=== PATIENT | male | born 1960 | race Caucasian/White ===

== ENCOUNTER 2018-03-12 19:53 | Inpatient (IN) | payer MEDICAID, OTHER ==
[~2018-03-12] VITALS: Ht 170.2 cm; Wt 66.0 kg
[~2018-03-12 19:53] MED LIST: DOCU100T PO; DOXY100C PO; LITH450CRT PO; MULT-248 PO; MUPI15CR TP; OMEP20 PO; RISP2 PO
[2018-03-12] MEDS ORDERED: ZOLPIDEM TARTRATE 10 MG TABLET PO PRN (20:15)
[2018-03-12] MEDS ORDERED: HALOPERIDOL 5 MG TABLET PO PRN (20:15)
[2018-03-12 20:32] VITALS: BP 137/87
[2018-03-12] MEDS ORDERED: -PHARMACY VACCINE NOTE- MISC ONE (21:00)
[2018-03-12] MEDS ORDERED: NICOTINE 14 MG/24 HOUR PATCH TD PRN (21:00)
[2018-03-12] MEDS ORDERED: ACETAMINOPHEN 325 MG TABLET PO PRN (21:00)
[2018-03-12] MEDS ORDERED: ALBUTEROL SULFATE HFA 90 MCG/PUFF 8 GM INHALER IH PRN (21:00)
[2018-03-12] MEDS ORDERED: MAGNESIUM HYDROXIDE SUSPENSION 30 ML UDCUP PO PRN (21:00)
[2018-03-12] MEDS ORDERED: ONDANSETRON HCL 4 MG TABLET PO PRN (21:00)
[2018-03-12] MEDS ORDERED: LOPERAMIDE HCL 2 MG CAPSULE PO PRN (21:00)
[2018-03-12] MEDS ORDERED: PETROLATUM,WHITE 71 GM JELLY TP PRN (21:00)
[2018-03-12] MEDS ORDERED: GuaiFENesin/D-METHORPHAN [SUGAR-FREE] 200-20MG/10 ML SYRUP UDCUP PO PRN (21:00)
[2018-03-12] MEDS ORDERED: DOCUSATE SODIUM 100 MG CAPSULE PO PRN (21:00)
[2018-03-12] MEDS ORDERED: IBUPROFEN 400 MG TABLET PO PRN (21:00)
[2018-03-12] MEDS ORDERED: MAG HYDROX/AL HYDROX/SIMETH ES 30 ML SUSPENSION UDCUP PO PRN (21:00)
[2018-03-12] MEDS ORDERED: CloNIDine HCL 0.1 MG TABLET PO PRN (21:00)
[2018-03-13 06:36] VITALS: BP_SYST 122; BP_SYST 124; BP_DIAS 79
[2018-03-13 08:17] VITALS: BP 114/62
[2018-03-13 08:29] LABS: BASOPHILS % (AUTO) 0.5 % (0.0-2.0); EOSINOPHILS % (AUTO) 2.3 % (1.0-6.0); HEMATOCRIT 37.3 % (41-53); HEMOGLOBIN 12.8 g/dL (13.5-17.5); LYMPHOCYTES # (AUTO) 1.5 K/uL (1.0-4.8); LYMPHOCYTES % (AUTO) 20.2 % (22.0-44.0); MEAN CORPUSCULAR HEMOGLOBIN 30.4 pg (26.0-34.0); MEAN CORPUSCULAR HGB CONC 34.3 G/dL (31.0-37.0); MEAN CORPUSCULAR VOLUME 89 fL (80-100); MONOCYTES % (AUTO) 13.8 % (2.0-9.0); NEUTROPHILS # (AUTO) 4.6 K/uL (1.8-7.7); NEUTROPHILS % (AUTO) 63.2 % (40.0-70.0); PLATELET COUNT (AUTO) 204 K/uL (150-450); RED BLOOD CELL COUNT(AUTO) 4.21 MIL/uL (4.50-5.90); RED CELL DISTRIBUTION WIDTH 14.1 % (11.5-14.5)
[2018-03-13 08:36] LABS: HEMOGLOBIN A1C 5.7 % (4.5-6.2)
[2018-03-13 08:54] LABS: ALANINE AMINOTRANSFERASE 21 U/L (12-78); ALBUMIN 3.1 g/dL (3.4-5.0); ALKALINE PHOSPHATASE 87 U/L (46-116); ANION GAP 5 mmol/L (8-16); ASPARTATE AMINOTRANSFERASE 23 U/L (15-37); BILIRUBIN,TOTAL 0.3 mg/dL (0.1-1.0); CALCIUM, TOTAL 8.1 mg/dL (8.8-10.5); CARBON DIOXIDE 27 mmol/L (22-29); CHLORIDE 105 mmol/L (98-107); CHOLESTEROL 120 mg/dL (131-200); CREATININE 0.77 mg/dL (0.60-1.30); FREE T4 (FREE THYROXINE) 1.05 ng/dL (0.76-1.46); GLOMERULAR FILTR. RATE CALC > 60 mL/min (>60); GLUCOSE,RANDOM 98 mg/dL (70-110); HDL CHOLESTEROL 60 mg/dL (40-60); LDL CHOL (CALC.) 50 mg/dL (0-130); POTASSIUM 3.9 mmol/L (3.5-5.1); SODIUM SERUM 137 mmol/L (136-145); THYROID STIMULATING HORMONE 1.01 uIU/mL (0.36-3.74); TOTAL PROTEIN, SERUM 6.3 g/dL (6.4-8.2); TRIGLYCERIDES 49 mg/dL (15-150); UREA NITROGEN, BLOOD 13 mg/dL (7-18)
[2018-03-13] MEDS: LORazepam 2 MG TABLET PO PRN ×2 (10:05→17:02)
[2018-03-13] MEDS: RisperiDONE 2 MG TABLET PO SCH ×2 (10:05→17:02)
[2018-03-14 02:52] VITALS: BP 111/66
[2018-03-14] MEDS: RisperiDONE 2 MG TABLET PO SCH ×2 (08:56→16:55)
[2018-03-14] MEDS: LORazepam 2 MG TABLET PO PRN (08:56)
[2018-03-14 16:00] VITALS: BP 118/64
[2018-03-15] MEDS ORDERED: LITHIUM CARBONATE 300 MG TABLET PO SCH (09:00)
[2018-03-15] MEDS: RisperiDONE 2 MG TABLET PO SCH (09:16)
== END 2018-03-15 13:15 | disposition home or self-care (01) | DRG 751 ==
LOC: B3A 20:12
PROVIDERS: ADMIT Psychiatry & Neurology Child & Adolescent Psychiatry; ATTEND Psychiatry & Neurology Child & Adolescent Psychiatry
DX: F23 Brief psychotic disorder (principal); D64.9 Anemia, unspecified; F41.9 Anxiety disorder, unspecified; F15.90 Other stimulant use, unspecified, uncomplicated; F17.210 Nicotine dependence, cigarettes, uncomplicated; J44.9 Chronic obstructive pulmonary disease, unspecified; K21.9 Gastro-esophageal reflux disease without esophagitis; K59.00 Constipation, unspecified; Z28.21 Immunization not carried out because of patient refusal; Z79.899 Other long term (current) drug therapy; Z71.6 Tobacco abuse counseling; Z71.51 Drug abuse counseling and surveillance of drug abuser
CPT/HCPCS: 83036; 84439; 84443; 90686

== ENCOUNTER 2018-04-07 20:19 | Inpatient (IN) | payer MEDICAID ==
[~2018-04-07] VITALS: Ht 175.3 cm; Wt 62.1 kg
[~2018-04-07 20:19] MED LIST changes: -DOCU100T PO; -DOXY100C PO; -MULT-248 PO; -MUPI15CR TP; -OMEP20 PO
[2018-04-07] MEDS ORDERED: HALOPERIDOL 5 MG TABLET PO PRN (21:00)
[2018-04-07] MEDS ORDERED: ZOLPIDEM TARTRATE 10 MG TABLET PO PRN (21:00)
[2018-04-07 21:02] VITALS: BP 117/66
[2018-04-07] MEDS ORDERED: ACETAMINOPHEN 325 MG TABLET PO PRN (21:45)
[2018-04-07] MEDS ORDERED: LOPERAMIDE HCL 2 MG CAPSULE PO PRN (21:45)
[2018-04-07] MEDS ORDERED: CloNIDine HCL 0.1 MG TABLET PO PRN (21:45)
[2018-04-07] MEDS ORDERED: DOCUSATE SODIUM 100 MG CAPSULE PO PRN (21:45)
[2018-04-07] MEDS ORDERED: NICOTINE 14 MG/24 HOUR PATCH TD PRN (21:45)
[2018-04-07] MEDS ORDERED: IBUPROFEN 400 MG TABLET PO PRN (21:45)
[2018-04-07] MEDS ORDERED: MAG HYDROX/AL HYDROX/SIMETH ES 30 ML SUSPENSION UDCUP PO PRN (21:45)
[2018-04-07] MEDS ORDERED: ONDANSETRON HCL 4 MG TABLET PO PRN (21:45)
[2018-04-07] MEDS ORDERED: ALBUTEROL SULFATE HFA 90 MCG/PUFF 8 GM INHALER IH PRN (21:45)
[2018-04-07] MEDS ORDERED: PETROLATUM,WHITE 71 GM JELLY TP PRN (21:45)
[2018-04-07] MEDS ORDERED: -PHARMACY VACCINE NOTE- MISC ONE (21:45)
[2018-04-07] MEDS ORDERED: GuaiFENesin/D-METHORPHAN [SUGAR-FREE] 200-20MG/10 ML SYRUP UDCUP PO PRN (21:45)
[2018-04-07] MEDS ORDERED: MAGNESIUM HYDROXIDE SUSPENSION 30 ML UDCUP PO PRN (21:45)
[2018-04-08 06:39] VITALS: BP 116/66
[2018-04-08] MEDS: RisperiDONE 2 MG TABLET PO SCH ×2 (09:00→16:46)
[2018-04-08] MEDS: OMEPRAZOLE 20 MG CAPSULE PO SCH (09:02)
[2018-04-08] MEDS: TERBINAFINE HCL 1% 30 GM CREAM TP SCH ×2 (09:02→21:15)
[2018-04-08 09:08] VITALS: BP 119/77
[2018-04-08 09:13] LABS: BASOPHILS % (AUTO) 0.7 % (0.0-2.0); HEMATOCRIT 36.5 % (41-53); HEMOGLOBIN 12.3 g/dL (13.5-17.5); LYMPHOCYTES # (AUTO) 1.6 K/uL (1.0-4.8); LYMPHOCYTES % (AUTO) 24.2 % (22.0-44.0); MEAN CORPUSCULAR HEMOGLOBIN 29.5 pg (26.0-34.0); MEAN CORPUSCULAR HGB CONC 33.5 G/dL (31.0-37.0); MEAN CORPUSCULAR VOLUME 88 fL (80-100); MONOCYTES # (AUTO) 1.1 K/uL (0.1-1.0); MONOCYTES % (AUTO) 15.8 % (2.0-9.0); NEUTROPHILS # (AUTO) 3.7 K/uL (1.8-7.7); NEUTROPHILS % (AUTO) 54.3 % (40.0-70.0); PLATELET COUNT (AUTO) 293 K/uL (150-450); RED BLOOD CELL COUNT(AUTO) 4.15 MIL/uL (4.50-5.90); RED CELL DISTRIBUTION WIDTH 13.5 % (11.5-14.5)
[2018-04-08] MEDS: LORazepam 2 MG TABLET PO PRN ×2 (09:27→16:47)
[2018-04-08 09:34] LABS: AMPHET/METH SCREEN,URINE NEGATIVE (NEGATIVE); BARBITURATE SCREEN, URINE NEGATIVE (NEGATIVE); BENZODIAZEPINES SCREEN,URINE NEGATIVE (NEGATIVE); CANNABINOID SCREEN,URINE NEGATIVE (NEGATIVE); COCAINE SCREEN,URINE NEGATIVE (NEGATIVE); METHADONE SCREEN, URINE NEGATIVE (NEGATIVE); OPIATE SCREEN,URINE NEGATIVE (NEGATIVE); PHENCYCLIDINE SCREEN,URINE NEGATIVE (NEGATIVE)
[2018-04-08 09:41] LABS: HEMOGLOBIN A1C 5.9 % (4.5-6.2)
[2018-04-08 09:49] LABS: ALANINE AMINOTRANSFERASE 25 U/L (12-78); ALBUMIN 2.8 g/dL (3.4-5.0); ALKALINE PHOSPHATASE 94 U/L (46-116); ANION GAP 5 mmol/L (8-16); ASPARTATE AMINOTRANSFERASE 26 U/L (15-37); BILIRUBIN,TOTAL 0.2 mg/dL (0.1-1.0); CALCIUM, TOTAL 8.4 mg/dL (8.8-10.5); CARBON DIOXIDE 30 mmol/L (22-29); CHLORIDE 106 mmol/L (98-107); CHOL/HDL RATIO 2.3 (4.2-7.3); CHOLESTEROL 119 mg/dL (131-200); CREATININE 0.82 mg/dL (0.60-1.30); FREE T4 (FREE THYROXINE) 1.09 ng/dL (0.76-1.46); GLOMERULAR FILTR. RATE CALC > 60 mL/min (>60); GLUCOSE,RANDOM 84 mg/dL (70-110); HDL CHOLESTEROL 51 mg/dL (40-60); LDL CHOL (CALC.) 58 mg/dL (0-130); POTASSIUM 4.2 mmol/L (3.5-5.1); SODIUM SERUM 141 mmol/L (136-145); THYROID STIMULATING HORMONE 1.43 uIU/mL (0.36-3.74); TOTAL PROTEIN, SERUM 5.8 g/dL (6.4-8.2); TRIGLYCERIDES 51 mg/dL (15-150); UREA NITROGEN, BLOOD 19 mg/dL (7-18)
[2018-04-08 10:11] LABS: APPEARANCE,URINE CLEAR (CLEAR); BILIRUBIN,URINE NEGATIVE (NEGATIVE); GLUCOSE, URINE (UA) NEGATIVE (NEGATIVE); KETONES,URINE NEGATIVE (NEGATIVE); LEUKOCYTE ESTERASE ,URINE NEGATIVE (NEGATIVE); NITRATE,URINE NEGATIVE (NEGATIVE); OCCULT BLOOD,URINE NEGATIVE (NEGATIVE); PROTEIN,URINE NEGATIVE (NEGATIVE); UROBILINOGEN,URINE 0.2 mg/dL (<=1.0)
[2018-04-08 16:32] VITALS: BP 116/60
[2018-04-09 05:31] VITALS: BP 112/80
[2018-04-09 08:04] VITALS: BP 113/64
[2018-04-09] MEDS: LORazepam 2 MG TABLET PO PRN ×2 (08:16→17:08)
[2018-04-09] MEDS: OMEPRAZOLE 20 MG CAPSULE PO SCH (08:16)
[2018-04-09] MEDS: TERBINAFINE HCL 1% 30 GM CREAM TP SCH ×2 (08:16→17:08)
[2018-04-09] MEDS: RisperiDONE 2 MG TABLET PO SCH ×2 (08:16→17:08)
[2018-04-09 16:00] VITALS: BP 108/65
[2018-04-10 06:24] VITALS: BP 12/72
[2018-04-10 08:02] VITALS: BP 124/72
[2018-04-10] MEDS: TERBINAFINE HCL 1% 30 GM CREAM TP SCH ×2 (08:25→17:07)
[2018-04-10] MEDS: OMEPRAZOLE 20 MG CAPSULE PO SCH (08:26)
[2018-04-10] MEDS: RisperiDONE 2 MG TABLET PO SCH ×2 (08:26→17:07)
[2018-04-10 16:00] VITALS: BP 115/65
[2018-04-11 02:46] VITALS: BP 109/68
[2018-04-11 08:01] VITALS: BP 114/65
[2018-04-11] MEDS: OMEPRAZOLE 20 MG CAPSULE PO SCH (08:19)
[2018-04-11] MEDS: RisperiDONE 2 MG TABLET PO SCH ×2 (08:19→16:48)
[2018-04-11] MEDS: TERBINAFINE HCL 1% 30 GM CREAM TP SCH ×2 (08:20→16:48)
[2018-04-11] MEDS: LORazepam 2 MG TABLET PO PRN ×2 (13:24→17:24)
[2018-04-11 16:02] VITALS: BP 101/60
[2018-04-12 03:23] VITALS: BP 122/72
[2018-04-12] MEDS: LORazepam 2 MG TABLET PO PRN ×2 (08:14→14:48)
[2018-04-12] MEDS: OMEPRAZOLE 20 MG CAPSULE PO SCH (08:15)
[2018-04-12] MEDS: RisperiDONE 2 MG TABLET PO SCH ×2 (08:15→16:14)
[2018-04-12 08:32] VITALS: BP 105/72
[2018-04-12] MEDS: TERBINAFINE HCL 1% 30 GM CREAM TP SCH ×2 (09:01→16:15)
[2018-04-12 17:23] VITALS: BP 106/60
[2018-04-13 01:18] VITALS: BP 134/82
[2018-04-13 08:00] VITALS: BP 123/60
[2018-04-13] MEDS: TERBINAFINE HCL 1% 30 GM CREAM TP SCH ×2 (08:22→16:06)
[2018-04-13] MEDS: LORazepam 2 MG TABLET PO PRN (08:22)
[2018-04-13] MEDS: RisperiDONE 2 MG TABLET PO SCH ×2 (08:22→16:06)
[2018-04-13] MEDS: OMEPRAZOLE 20 MG CAPSULE PO SCH (08:22)
[2018-04-13 16:03] VITALS: BP 98/61
[2018-04-14 01:17] VITALS: BP 122/65
[2018-04-14 08:01] VITALS: BP 114/66
[2018-04-14] MEDS: TERBINAFINE HCL 1% 30 GM CREAM TP SCH ×2 (08:05→16:22)
[2018-04-14] MEDS: OMEPRAZOLE 20 MG CAPSULE PO SCH (08:05)
[2018-04-14] MEDS: RisperiDONE 2 MG TABLET PO SCH ×2 (08:05→16:22)
[2018-04-14 09:30] VITALS: BP 120/68
[2018-04-14 15:48] VITALS: BP 107/60
[2018-04-14 16:06] VITALS: BP 107/60
[2018-04-14] MEDS: LORazepam 2 MG TABLET PO PRN (16:22)
[2018-04-15 03:22] VITALS: BP 101/59
[2018-04-15] MEDS: LORazepam 2 MG TABLET PO PRN (07:13)
[2018-04-15 08:02] VITALS: BP 121/69
[2018-04-15] MEDS: OMEPRAZOLE 20 MG CAPSULE PO SCH (08:03)
[2018-04-15] MEDS: RisperiDONE 2 MG TABLET PO SCH ×2 (08:03→16:13)
[2018-04-15] MEDS: TERBINAFINE HCL 1% 30 GM CREAM TP SCH ×2 (08:03→16:14)
== END 2018-04-15 16:40 | disposition home or self-care (01) | DRG 750 ==
LOC: B2S 20:58 → EDSTATUS 21:02 → B3A 04-08 11:05
PROVIDERS: ADMIT Psychiatry & Neurology Child & Adolescent Psychiatry; ATTEND Psychiatry & Neurology Child & Adolescent Psychiatry
DX: F25.0 Schizoaffective disorder, bipolar type (principal); Z59.0 Homelessness; D64.9 Anemia, unspecified; F15.229 Other stimulant dependence with intoxication, unspecified; J44.9 Chronic obstructive pulmonary disease, unspecified; K21.9 Gastro-esophageal reflux disease without esophagitis; K59.00 Constipation, unspecified; F41.9 Anxiety disorder, unspecified; F19.10 Other psychoactive substance abuse, uncomplicated; G47.00 Insomnia, unspecified; Z79.899 Other long term (current) drug therapy; Z71.51 Drug abuse counseling and surveillance of drug abuser
CPT/HCPCS: 80307; 83036; 84439; 84443; Q0162

== ENCOUNTER 2018-04-18 23:34 | Inpatient (IN) | payer MEDICAID ==
[~2018-04-18] VITALS: Ht 175.3 cm; Wt 62.2 kg
[~2018-04-18 23:34] MED LIST changes: -LITH450CRT PO
[2018-04-19 00:05] VITALS: BP 136/69
[2018-04-19 01:09] VITALS: BP 120/78
[2018-04-19] MEDS ORDERED: CloNIDine HCL 0.1 MG TABLET PO PRN (06:30)
[2018-04-19] MEDS ORDERED: DOCUSATE SODIUM 100 MG CAPSULE PO PRN (06:30)
[2018-04-19] MEDS ORDERED: ONDANSETRON HCL 4 MG TABLET PO PRN (06:30)
[2018-04-19] MEDS ORDERED: ALBUTEROL SULFATE HFA 90 MCG/PUFF 8 GM INHALER IH PRN (06:30)
[2018-04-19] MEDS ORDERED: MAGNESIUM HYDROXIDE SUSPENSION 30 ML UDCUP PO PRN (06:30)
[2018-04-19] MEDS ORDERED: NICOTINE 14 MG/24 HOUR PATCH TD PRN (06:30)
[2018-04-19] MEDS ORDERED: PETROLATUM,WHITE 71 GM JELLY TP PRN (06:30)
[2018-04-19] MEDS ORDERED: GuaiFENesin/D-METHORPHAN [SUGAR-FREE] 200-20MG/10 ML SYRUP UDCUP PO PRN (06:30)
[2018-04-19] MEDS ORDERED: MAG HYDROX/AL HYDROX/SIMETH ES 30 ML SUSPENSION UDCUP PO PRN (06:30)
[2018-04-19] MEDS ORDERED: ACETAMINOPHEN 325 MG TABLET PO PRN (06:30)
[2018-04-19 08:15] LABS: BILIRUBIN,URINE NEGATIVE (NEGATIVE); GLUCOSE, URINE (UA) NEGATIVE (NEGATIVE); KETONES,URINE NEGATIVE (NEGATIVE); LEUKOCYTE ESTERASE ,URINE NEGATIVE (NEGATIVE); NITRATE,URINE NEGATIVE (NEGATIVE); OCCULT BLOOD,URINE NEGATIVE (NEGATIVE); PH,URINE 5.5 (5.0-8.0); PROTEIN,URINE NEGATIVE (NEGATIVE); UROBILINOGEN,URINE 0.2 mg/dL (<=1.0)
[2018-04-19 08:16] LABS: AMPHET/METH SCREEN,URINE POSITIVE (NEGATIVE); BARBITURATE SCREEN, URINE NEGATIVE (NEGATIVE); BENZODIAZEPINES SCREEN,URINE NEGATIVE (NEGATIVE); CANNABINOID SCREEN,URINE NEGATIVE (NEGATIVE); COCAINE SCREEN,URINE NEGATIVE (NEGATIVE); METHADONE SCREEN, URINE NEGATIVE (NEGATIVE); OPIATE SCREEN,URINE NEGATIVE (NEGATIVE)
[2018-04-19 08:21] LABS: APPEARANCE,URINE HAZY (CLEAR)
[2018-04-19 08:23] LABS: PHENCYCLIDINE SCREEN,URINE NEGATIVE (NEGATIVE)
[2018-04-19 08:47] VITALS: BP 104/67
[2018-04-19 12:40] VITALS: BP 110/59
[2018-04-19] MEDS: LORazepam 2 MG TABLET PO PRN (12:40)
[2018-04-19 16:00] VITALS: BP 106/64
[2018-04-20] MEDS: LORazepam 2 MG TABLET PO PRN ×3 (00:53→13:16)
[2018-04-20] MEDS: ZOLPIDEM TARTRATE 10 MG TABLET PO PRN (00:53)
[2018-04-20 00:54] VITALS: BP 111/77
[2018-04-20 07:21] LABS: BASOPHILS % (AUTO) 0.8 % (0.0-2.0); EOSINOPHILS % (AUTO) 6.6 % (1.0-6.0); HEMATOCRIT 39.9 % (41-53); HEMOGLOBIN 13.1 g/dL (13.5-17.5); LYMPHOCYTES # (AUTO) 1.6 K/uL (1.0-4.8); LYMPHOCYTES % (AUTO) 30.2 % (22.0-44.0); MEAN CORPUSCULAR HEMOGLOBIN 29.2 pg (26.0-34.0); MEAN CORPUSCULAR HGB CONC 32.8 G/dL (31.0-37.0); MEAN CORPUSCULAR VOLUME 89 fL (80-100); MONOCYTES # (AUTO) 0.6 K/uL (0.1-1.0); NEUTROPHILS # (AUTO) 2.6 K/uL (1.8-7.7); NEUTROPHILS % (AUTO) 50.4 % (40.0-70.0); PLATELET COUNT (AUTO) 240 K/uL (150-450); RED BLOOD CELL COUNT(AUTO) 4.47 MIL/uL (4.50-5.90); RED CELL DISTRIBUTION WIDTH 13.9 % (11.5-14.5)
[2018-04-20 07:51] LABS: ALANINE AMINOTRANSFERASE 26 U/L (12-78); ALBUMIN 3.3 g/dL (3.4-5.0); ALKALINE PHOSPHATASE 96 U/L (46-116); ANION GAP 6 mmol/L (8-16); ASPARTATE AMINOTRANSFERASE 28 U/L (15-37); BILIRUBIN,TOTAL 0.2 mg/dL (0.1-1.0); CALCIUM, TOTAL 9.1 mg/dL (8.8-10.5); CARBON DIOXIDE 29 mmol/L (22-29); CHLORIDE 103 mmol/L (98-107); CHOL/HDL RATIO 2.6 (4.2-7.3); CHOLESTEROL 145 mg/dL (131-200); CREATININE 0.71 mg/dL (0.60-1.30); FREE T4 (FREE THYROXINE) 1.07 ng/dL (0.76-1.46); GLOMERULAR FILTR. RATE CALC > 60 mL/min (>60); GLUCOSE,RANDOM 95 mg/dL (70-110); HDL CHOLESTEROL 56 mg/dL (40-60); HEMOGLOBIN A1C 5.8 % (4.5-6.2); LDL CHOL (CALC.) 71 mg/dL (0-130); POTASSIUM 4.8 mmol/L (3.5-5.1); SODIUM SERUM 138 mmol/L (136-145); THYROID STIMULATING HORMONE 2.04 uIU/mL (0.36-3.74); TOTAL PROTEIN, SERUM 6.8 g/dL (6.4-8.2); TRIGLYCERIDES 88 mg/dL (15-150); UREA NITROGEN, BLOOD 22 mg/dL (7-18)
[2018-04-20 08:00] VITALS: BP 110/67
[2018-04-20] MEDS: LOPERAMIDE HCL 2 MG CAPSULE PO PRN (10:17)
[2018-04-20 16:37] VITALS: BP 116/64
[2018-04-21 00:18] VITALS: BP 122/78
[2018-04-21] MEDS: LORazepam 2 MG TABLET PO PRN ×3 (02:26→16:47)
[2018-04-21] MEDS: ZOLPIDEM TARTRATE 10 MG TABLET PO PRN (02:26)
[2018-04-21] MEDS: LOPERAMIDE HCL 2 MG CAPSULE PO PRN (06:46)
[2018-04-21 08:08] VITALS: BP 108/65
[2018-04-21] MEDS: RisperiDONE 2 MG TABLET PO SCH ×2 (10:05→16:46)
[2018-04-21 16:00] VITALS: BP 117/68
[2018-04-21] MEDS: HALOPERIDOL 5 MG TABLET PO PRN (16:47)
[2018-04-22 03:39] VITALS: BP 103/69
[2018-04-22 08:14] VITALS: BP 106/61
[2018-04-22] MEDS: RisperiDONE 2 MG TABLET PO SCH ×2 (08:43→16:15)
[2018-04-22] MEDS: LORazepam 2 MG TABLET PO PRN ×2 (08:43→16:15)
[2018-04-22] MEDS: HALOPERIDOL 5 MG TABLET PO PRN (16:15)
[2018-04-22 16:36] VITALS: BP 106/68
[2018-04-23 00:36] VITALS: BP 109/60
[2018-04-23] MEDS: IBUPROFEN 400 MG TABLET PO PRN (00:36)
[2018-04-23 08:23] VITALS: BP 112/56
[2018-04-23] MEDS: RisperiDONE 2 MG TABLET PO SCH ×2 (08:39→16:42)
[2018-04-23 16:00] VITALS: BP 106/64
[2018-04-23] MEDS: LORazepam 2 MG TABLET PO PRN (16:42)
[2018-04-23 23:33] VITALS: BP 128/73
[2018-04-24] MEDS: LOPERAMIDE HCL 2 MG CAPSULE PO PRN (00:49)
[2018-04-24] MEDS: IBUPROFEN 400 MG TABLET PO PRN (06:31)
[2018-04-24] MEDS: LORazepam 2 MG TABLET PO PRN (06:31)
[2018-04-24 08:09] VITALS: BP 110/62
[2018-04-24] MEDS: RisperiDONE 2 MG TABLET PO SCH (08:22)
== END 2018-04-24 14:20 | disposition home or self-care (01) | DRG 750 ==
LOC: B3A 04-19 00:20
PROVIDERS: ADMIT Psychiatry & Neurology Psychiatry; ATTEND Psychiatry & Neurology Child & Adolescent Psychiatry
DX: F25.0 Schizoaffective disorder, bipolar type (principal); R45.851 Suicidal ideations; Z59.0 Homelessness; D64.9 Anemia, unspecified; J44.9 Chronic obstructive pulmonary disease, unspecified; K21.9 Gastro-esophageal reflux disease without esophagitis; K59.00 Constipation, unspecified
CPT/HCPCS: 80307; 83036; 84436; 84439; 84443

== ENCOUNTER 2018-05-03 16:17 | Inpatient (IN) | payer MEDICAID ==
[~2018-05-03] VITALS: Ht 165.1 cm; Wt 61.7 kg
[2018-05-03] MEDS ORDERED: HALOPERIDOL 5 MG TABLET PO ONE (17:15)
[2018-05-03 17:35] LABS: BASOPHILS % (AUTO) 0.5 % (0.0-2.0); EOSINOPHILS % (AUTO) 6.2 % (1.0-6.0); HEMATOCRIT 36.6 % (41-53); HEMOGLOBIN 12.2 g/dL (13.5-17.5); LYMPHOCYTES # (AUTO) 1.4 K/uL (1.0-4.8); LYMPHOCYTES % (AUTO) 23.4 % (22.0-44.0); MEAN CORPUSCULAR HEMOGLOBIN 29.5 pg (26.0-34.0); MEAN CORPUSCULAR HGB CONC 33.3 G/dL (31.0-37.0); MEAN CORPUSCULAR VOLUME 88 fL (80-100); MONOCYTES # (AUTO) 0.7 K/uL (0.1-1.0); MONOCYTES % (AUTO) 11.3 % (2.0-9.0); NEUTROPHILS # (AUTO) 3.4 K/uL (1.8-7.7); NEUTROPHILS % (AUTO) 58.6 % (40.0-70.0); PLATELET COUNT (AUTO) 184 K/uL (150-450); RED BLOOD CELL COUNT(AUTO) 4.15 MIL/uL (4.50-5.90); RED CELL DISTRIBUTION WIDTH 14.3 % (11.5-14.5)
[2018-05-03 17:48] LABS: ANION GAP 4 mmol/L (8-16); CALCIUM, TOTAL 8.4 mg/dL (8.8-10.5); CARBON DIOXIDE 29 mmol/L (22-29); CHLORIDE 107 mmol/L (98-107); CREATININE 0.84 mg/dL (0.60-1.30); GLOMERULAR FILTR. RATE CALC > 60 mL/min (>60); GLUCOSE,RANDOM 105 mg/dL (70-110); SODIUM SERUM 140 mmol/L (136-145); UREA NITROGEN, BLOOD 15 mg/dL (7-18)
[2018-05-03 17:54] LABS: ALANINE AMINOTRANSFERASE 18 U/L (12-78); ALBUMIN 3.1 g/dL (3.4-5.0); ALKALINE PHOSPHATASE 82 U/L (46-116); ASPARTATE AMINOTRANSFERASE 20 U/L (15-37); BILIRUBIN,TOTAL 0.2 mg/dL (0.1-1.0); TOTAL PROTEIN, SERUM 6.3 g/dL (6.4-8.2)
[2018-05-03] MEDS ORDERED: ZOLPIDEM TARTRATE 10 MG TABLET PO PRN (19:00)
[2018-05-04 01:40] VITALS: BP 118/75
[2018-05-04] MEDS ORDERED: -PHARMACY VACCINE NOTE- MISC ONE (03:30)
[2018-05-04] MEDS ORDERED: LOPERAMIDE HCL 2 MG CAPSULE PO PRN (06:30)
[2018-05-04] MEDS ORDERED: NICOTINE 14 MG/24 HOUR PATCH TD PRN (06:30)
[2018-05-04] MEDS ORDERED: PETROLATUM,WHITE 71 GM JELLY TP PRN (06:30)
[2018-05-04] MEDS ORDERED: ONDANSETRON HCL 4 MG TABLET PO PRN (06:30)
[2018-05-04] MEDS ORDERED: ACETAMINOPHEN 325 MG TABLET PO PRN (06:30)
[2018-05-04] MEDS ORDERED: IBUPROFEN 400 MG TABLET PO PRN (06:30)
[2018-05-04] MEDS ORDERED: DOCUSATE SODIUM 100 MG CAPSULE PO PRN (06:30)
[2018-05-04] MEDS ORDERED: ALBUTEROL SULFATE HFA 90 MCG/PUFF 8 GM INHALER IH PRN (06:30)
[2018-05-04] MEDS ORDERED: GuaiFENesin/D-METHORPHAN [SUGAR-FREE] 200-20MG/10 ML SYRUP UDCUP PO PRN (06:30)
[2018-05-04] MEDS ORDERED: MAGNESIUM HYDROXIDE SUSPENSION 30 ML UDCUP PO PRN (06:30)
[2018-05-04] MEDS ORDERED: BACITRACIN 28.4 GM OINTMENT TP PRN (06:45)
[2018-05-04 08:18] LABS: CHOL/HDL RATIO 2.2 (4.2-7.3); FREE T4 (FREE THYROXINE) 1.08 ng/dL (0.76-1.46); THYROID STIMULATING HORMONE 0.61 uIU/mL (0.36-3.74)
[2018-05-04 08:30] VITALS: BP 114/59
[2018-05-04] MEDS: HALOPERIDOL 5 MG TABLET PO PRN ×2 (10:00→16:36)
[2018-05-04] MEDS: LORazepam 2 MG TABLET PO PRN ×2 (10:00→16:36)
[2018-05-04] MEDS: RisperiDONE 3 MG TABLET PO SCH (16:37)
[2018-05-04] MEDS: TERBINAFINE HCL 1% 30 GM CREAM TP SCH (16:49)
[2018-05-04 16:50] VITALS: BP 102/72
[2018-05-04] MEDS ORDERED: RisperiDONE 3 MG TABLET PO SCH (17:00)
[2018-05-05 07:00] VITALS: BP 105/75
[2018-05-05] MEDS: LORazepam 2 MG TABLET PO PRN ×2 (08:34→16:51)
[2018-05-05] MEDS: HALOPERIDOL 5 MG TABLET PO PRN ×2 (08:34→16:51)
[2018-05-05] MEDS: BACITRACIN 28.4 GM OINTMENT TP SCH (08:34)
[2018-05-05] MEDS: TERBINAFINE HCL 1% 30 GM CREAM TP SCH ×2 (08:34→16:51)
[2018-05-05] MEDS: RisperiDONE 3 MG TABLET PO SCH ×2 (08:34→16:51)
[2018-05-05 09:20] VITALS: BP 110/60
[2018-05-05 17:06] VITALS: BP 104/62
[2018-05-06 06:42] VITALS: BP 110/65
[2018-05-06 08:15] VITALS: BP 110/69
[2018-05-06] MEDS: RisperiDONE 3 MG TABLET PO SCH (08:28)
[2018-05-06] MEDS: HALOPERIDOL 5 MG TABLET PO PRN (08:28)
[2018-05-06] MEDS: LORazepam 2 MG TABLET PO PRN (08:28)
[2018-05-06] MEDS: TERBINAFINE HCL 1% 30 GM CREAM TP SCH (08:31)
[2018-05-06] MEDS: BACITRACIN 28.4 GM OINTMENT TP SCH (08:31)
[2018-05-06] MEDS ORDERED: RISP3 PO (10:51)
== END 2018-05-06 13:20 | disposition home or self-care (01) | DRG 750 ==
LOC: EMS 16:18 → B3A 23:00
PROVIDERS: ADMIT Psychiatry & Neurology Child & Adolescent Psychiatry; ATTEND Psychiatry & Neurology Child & Adolescent Psychiatry
DX: F25.9 Schizoaffective disorder, unspecified (principal); R45.851 Suicidal ideations; Z59.0 Homelessness; B35.1 Tinea unguium; F19.90 Other psychoactive substance use, unspecified, uncomplicated; F17.210 Nicotine dependence, cigarettes, uncomplicated; J44.9 Chronic obstructive pulmonary disease, unspecified; K21.9 Gastro-esophageal reflux disease without esophagitis; K59.00 Constipation, unspecified; Z91.5 Personal history of self-harm; G47.00 Insomnia, unspecified; F41.9 Anxiety disorder, unspecified
CPT/HCPCS: 84436; 84439; 84443; 87081; G0480

== ENCOUNTER 2018-06-07 19:22 | Inpatient (IN) | payer MEDICAID ==
[~2018-06-07] VITALS: Ht 177.8 cm; Wt 62.6 kg
[~2018-06-07 19:22] MED LIST changes: -RISP2 PO; +RISP3 PO
[2018-06-07] MEDS ORDERED: ZOLPIDEM TARTRATE 10 MG TABLET PO PRN (20:00)
[2018-06-07] MEDS ORDERED: HALOPERIDOL 5 MG TABLET PO PRN (20:00)
[2018-06-07 20:01] VITALS: BP 113/71
[2018-06-07 20:41] VITALS: BP 128/76
[2018-06-07] MEDS ORDERED: LOPERAMIDE HCL 2 MG CAPSULE PO PRN (20:45)
[2018-06-07] MEDS ORDERED: IBUPROFEN 400 MG TABLET PO PRN (20:45)
[2018-06-07] MEDS ORDERED: MAG HYDROX/AL HYDROX/SIMETH ES 30 ML SUSPENSION UDCUP PO PRN (20:45)
[2018-06-07] MEDS ORDERED: MAGNESIUM HYDROXIDE SUSPENSION 30 ML UDCUP PO PRN (20:45)
[2018-06-07] MEDS ORDERED: ACETAMINOPHEN 325 MG TABLET PO PRN (20:45)
[2018-06-07] MEDS ORDERED: DOCUSATE SODIUM 100 MG CAPSULE PO PRN (20:45)
[2018-06-07] MEDS ORDERED: PETROLATUM,WHITE 28 GM JELLY TP PRN (20:45)
[2018-06-08 06:21] VITALS: BP 118/70
[2018-06-08] MEDS: LORazepam 2 MG TABLET PO PRN (06:51)
[2018-06-08 08:36] LABS: BASOPHILS % (AUTO) 0.7 % (0.0-2.0); EOSINOPHILS % (AUTO) 2.9 % (1.0-6.0); HEMATOCRIT 39.1 % (41-53); HEMOGLOBIN 12.9 g/dL (13.5-17.5); LYMPHOCYTES # (AUTO) 1.7 K/uL (1.0-4.8); LYMPHOCYTES % (AUTO) 31.5 % (22.0-44.0); MEAN CORPUSCULAR HEMOGLOBIN 29.4 pg (26.0-34.0); MEAN CORPUSCULAR HGB CONC 32.9 G/dL (31.0-37.0); MEAN CORPUSCULAR VOLUME 89 fL (80-100); MONOCYTES # (AUTO) 0.6 K/uL (0.1-1.0); MONOCYTES % (AUTO) 10.5 % (2.0-9.0); NEUTROPHILS % (AUTO) 54.4 % (40.0-70.0); PLATELET COUNT (AUTO) 182 K/uL (150-450); RED BLOOD CELL COUNT(AUTO) 4.38 MIL/uL (4.50-5.90); RED CELL DISTRIBUTION WIDTH 14.2 % (11.5-14.5)
[2018-06-08] MEDS: NICOTINE 21 MG/24 HOUR PATCH TD SCH (09:00)
[2018-06-08 09:16] VITALS: BP 111/76
[2018-06-08 09:18] LABS: HEMOGLOBIN A1C 5.8 % (4.5-6.2)
[2018-06-08 09:29] LABS: ALANINE AMINOTRANSFERASE 16 U/L (12-78); ALBUMIN 3.2 g/dL (3.4-5.0); ALKALINE PHOSPHATASE 72 U/L (46-116); ANION GAP 3 mmol/L (8-16); ASPARTATE AMINOTRANSFERASE 19 U/L (15-37); BILIRUBIN,TOTAL 0.2 mg/dL (0.1-1.0); CALCIUM, TOTAL 9.1 mg/dL (8.8-10.5); CARBON DIOXIDE 31 mmol/L (22-29); CHLORIDE 105 mmol/L (98-107); CHOL/HDL RATIO 2.4 (4.2-7.3); CHOLESTEROL 122 mg/dL (131-200); CREATININE 0.86 mg/dL (0.60-1.30); FREE T4 (FREE THYROXINE) 0.93 ng/dL (0.76-1.46); GLOMERULAR FILTR. RATE CALC > 60 mL/min (>60); GLUCOSE,RANDOM 95 mg/dL (70-110); HDL CHOLESTEROL 51 mg/dL (40-60); LDL CHOL (CALC.) 57 mg/dL (0-130); POTASSIUM 4.1 mmol/L (3.5-5.1); SODIUM SERUM 139 mmol/L (136-145); THYROID STIMULATING HORMONE 1.04 uIU/mL (0.36-3.74); TOTAL PROTEIN, SERUM 6.1 g/dL (6.4-8.2); TRIGLYCERIDES 72 mg/dL (15-150); UREA NITROGEN, BLOOD 21 mg/dL (7-18)
[2018-06-08] MEDS: RisperiDONE 3 MG TABLET PO SCH ×2 (12:18→20:28)
[2018-06-08] MEDS ORDERED: CloNIDine HCL 0.1 MG TABLET PO PRN (13:30)
[2018-06-08] MEDS ORDERED: MAGNESIUM HYDROXIDE SUSPENSION 30 ML UDCUP PO PRN (13:30)
[2018-06-08] MEDS ORDERED: IBUPROFEN 400 MG TABLET PO PRN (13:30)
[2018-06-08] MEDS ORDERED: MAG HYDROX/AL HYDROX/SIMETH ES 30 ML SUSPENSION UDCUP PO PRN (13:30)
[2018-06-08] MEDS ORDERED: ONDANSETRON HCL 4 MG TABLET PO PRN (13:30)
[2018-06-08] MEDS ORDERED: ACETAMINOPHEN 325 MG TABLET PO PRN (13:30)
[2018-06-08] MEDS ORDERED: PETROLATUM,WHITE 28 GM JELLY TP PRN (13:30)
[2018-06-08] MEDS ORDERED: DOCUSATE SODIUM 100 MG CAPSULE PO PRN (13:30)
[2018-06-08] MEDS ORDERED: NICOTINE 14 MG/24 HOUR PATCH TD PRN (13:30)
[2018-06-08] MEDS ORDERED: GuaiFENesin/D-METHORPHAN [SUGAR-FREE] 200-20MG/10 ML SYRUP UDCUP PO PRN (13:30)
[2018-06-08] MEDS ORDERED: LOPERAMIDE HCL 2 MG CAPSULE PO PRN (13:30)
[2018-06-08] MEDS ORDERED: ALBUTEROL SULFATE HFA 90 MCG/PUFF 8 GM INHALER IH PRN (13:30)
[2018-06-08 18:55] VITALS: BP 100/65
[2018-06-09 00:28] VITALS: BP 109/67
[2018-06-09] MEDS: RisperiDONE 3 MG TABLET PO SCH ×2 (08:04→20:40)
[2018-06-09] MEDS: NICOTINE 21 MG/24 HOUR PATCH TD SCH (08:05)
[2018-06-09 08:14] VITALS: BP 114/73
[2018-06-09 16:55] VITALS: BP 114/65
[2018-06-10 01:16] VITALS: BP 116/69
[2018-06-10] MEDS: RisperiDONE 3 MG TABLET PO SCH ×2 (08:09→20:38)
[2018-06-10] MEDS: NICOTINE 21 MG/24 HOUR PATCH TD SCH ×2 (08:09→09:00)
[2018-06-10 08:27] VITALS: BP 117/78
[2018-06-10 18:59] VITALS: BP 96/64
[2018-06-11 06:14] VITALS: BP 106/62
[2018-06-11] MEDS: RisperiDONE 3 MG TABLET PO SCH ×2 (08:32→20:19)
[2018-06-11] MEDS: NICOTINE 21 MG/24 HOUR PATCH TD SCH ×2 (08:33→09:00)
[2018-06-11 08:43] VITALS: BP 114/65
[2018-06-11] MEDS: FLUoxetine HCL 20 MG CAPSULE PO SCH (13:14)
[2018-06-11 16:03] VITALS: BP 102/59
[2018-06-12 06:57] VITALS: BP 110/68
[2018-06-12] MEDS: FLUoxetine HCL 20 MG CAPSULE PO SCH (08:56)
[2018-06-12] MEDS: RisperiDONE 3 MG TABLET PO SCH ×2 (08:56→20:48)
[2018-06-12] MEDS: NICOTINE 21 MG/24 HOUR PATCH TD SCH (09:00)
[2018-06-12 09:16] VITALS: BP 107/72
[2018-06-12 16:23] VITALS: BP 123/86
[2018-06-13 06:38] VITALS: BP 112/74
[2018-06-13 08:16] VITALS: BP 119/52
[2018-06-13] MEDS: FLUoxetine HCL 20 MG CAPSULE PO SCH (08:34)
[2018-06-13] MEDS: RisperiDONE 3 MG TABLET PO SCH ×2 (08:34→20:10)
[2018-06-13] MEDS: NICOTINE 21 MG/24 HOUR PATCH TD SCH (09:00)
[2018-06-13] MEDS: LORazepam 2 MG TABLET PO PRN (13:11)
[2018-06-13 16:05] VITALS: BP 115/87
[2018-06-14 00:25] VITALS: BP 113/76
[2018-06-14 08:12] VITALS: BP 102/62
[2018-06-14] MEDS: FLUoxetine HCL 20 MG CAPSULE PO SCH (08:14)
[2018-06-14] MEDS: RisperiDONE 3 MG TABLET PO SCH ×2 (08:14→20:29)
[2018-06-14] MEDS: NICOTINE 21 MG/24 HOUR PATCH TD SCH (08:28)
[2018-06-14 16:02] VITALS: BP 118/68
[2018-06-15 05:43] VITALS: BP 125/71
[2018-06-15] MEDS: FLUoxetine HCL 20 MG CAPSULE PO SCH (08:08)
[2018-06-15] MEDS: RisperiDONE 3 MG TABLET PO SCH ×2 (08:09→20:28)
[2018-06-15 08:14] VITALS: BP 113/66
[2018-06-15] MEDS: NICOTINE 21 MG/24 HOUR PATCH TD SCH (09:00)
[2018-06-15 16:00] VITALS: BP 178/80
[2018-06-16 00:41] VITALS: BP 113/68
[2018-06-16] MEDS: FLUoxetine HCL 20 MG CAPSULE PO SCH (08:00)
[2018-06-16] MEDS: NICOTINE 21 MG/24 HOUR PATCH TD SCH (08:00)
[2018-06-16] MEDS: RisperiDONE 3 MG TABLET PO SCH ×2 (08:00→20:04)
[2018-06-16 08:11] VITALS: BP 116/66
[2018-06-16] MEDS: LORazepam 2 MG TABLET PO PRN (11:25)
[2018-06-16 16:00] VITALS: BP 100/62
[2018-06-17 00:25] VITALS: BP 131/81
[2018-06-17] MEDS ORDERED: FLUO-191 PO (04:32)
[2018-06-17] MEDS ORDERED: NICO-703 TD (04:32)
[2018-06-17] MEDS ORDERED: RISP3 PO (04:32)
[2018-06-17] MEDS: FLUoxetine HCL 20 MG CAPSULE PO SCH (08:11)
[2018-06-17] MEDS: NICOTINE 21 MG/24 HOUR PATCH TD SCH (08:12)
[2018-06-17] MEDS: RisperiDONE 3 MG TABLET PO SCH (08:12)
== END 2018-06-17 11:50 | disposition home or self-care (01) | DRG 750 ==
LOC: EDSTATUS 19:40 → B2S 19:54
PROVIDERS: ATTEND Psychiatry & Neurology Child & Adolescent Psychiatry
DX: F25.1 Schizoaffective disorder, depressive type (principal); R45.851 Suicidal ideations; Z59.0 Homelessness; D64.9 Anemia, unspecified; F15.90 Other stimulant use, unspecified, uncomplicated; J44.9 Chronic obstructive pulmonary disease, unspecified; K21.9 Gastro-esophageal reflux disease without esophagitis; K59.00 Constipation, unspecified; Z91.5 Personal history of self-harm
CPT/HCPCS: 83036; 84439; 84443

== ENCOUNTER 2018-09-15 20:28 | Inpatient (IN) | payer MEDICAID ==
[~2018-09-15] VITALS: Ht 177.8 cm; Wt 70.7 kg
[~2018-09-15 20:28] MED LIST changes: +FLUO-191 PO; +NICO-703 TD
[2018-09-15] MEDS ORDERED: ZOLPIDEM TARTRATE 10 MG TABLET PO PRN (21:45)
[2018-09-15 22:11] VITALS: BP 140/88
[2018-09-16 00:16] VITALS: BP 115/72
[2018-09-16] MEDS ORDERED: ONDANSETRON HCL 4 MG TABLET PO PRN ×2 (07:30)
[2018-09-16] MEDS ORDERED: ALBUTEROL SULFATE HFA 90 MCG/PUFF 8 GM INHALER IH PRN (07:30)
[2018-09-16] MEDS ORDERED: DOCUSATE SODIUM 100 MG CAPSULE PO PRN (07:30)
[2018-09-16] MEDS ORDERED: PETROLATUM,WHITE 28 GM JELLY TP PRN (07:30)
[2018-09-16] MEDS ORDERED: MAG HYDROX/AL HYDROX/SIMETH ES 30 ML SUSPENSION UDCUP PO PRN (07:30)
[2018-09-16] MEDS ORDERED: NICOTINE 14 MG/24 HOUR PATCH TD PRN (07:30)
[2018-09-16] MEDS ORDERED: ACETAMINOPHEN 325 MG TABLET PO PRN (07:30)
[2018-09-16] MEDS ORDERED: MAGNESIUM HYDROXIDE SUSPENSION 30 ML UDCUP PO PRN (07:30)
[2018-09-16] MEDS ORDERED: LOPERAMIDE HCL 2 MG CAPSULE PO PRN (07:30)
[2018-09-16] MEDS ORDERED: IBUPROFEN 400 MG TABLET PO PRN (07:30)
[2018-09-16] MEDS ORDERED: CloNIDine HCL 0.1 MG TABLET PO PRN (07:30)
[2018-09-16] MEDS ORDERED: GuaiFENesin/D-METHORPHAN [SUGAR-FREE] 200-20MG/10 ML SYRUP UDCUP PO PRN (07:30)
[2018-09-16 08:19] VITALS: BP 116/64
[2018-09-16] MEDS: RisperiDONE 3 MG TABLET PO SCH ×2 (09:30→20:33)
[2018-09-16] MEDS: FLUoxetine HCL 20 MG CAPSULE PO SCH (09:30)
[2018-09-16] MEDS: BACITRACIN 28.4 GM OINTMENT TP SCH ×2 (09:30→17:06)
[2018-09-16] MEDS: LORazepam 2 MG TABLET PO PRN (09:57)
[2018-09-16] MEDS: HALOPERIDOL 5 MG TABLET PO PRN (09:57)
[2018-09-17 06:19] VITALS: BP 105/79
[2018-09-17 07:54] LABS: BASOPHILS % (AUTO) 0.4 % (0.0-2.0); EOSINOPHILS % (AUTO) 6.8 % (1.0-6.0); HEMATOCRIT 42.3 % (41-53); LYMPHOCYTES # (AUTO) 1.6 K/uL (1.0-4.8); LYMPHOCYTES % (AUTO) 26.3 % (22.0-44.0); MEAN CORPUSCULAR HEMOGLOBIN 30.1 pg (26.0-34.0); MEAN CORPUSCULAR HGB CONC 33.1 G/dL (31.0-37.0); MEAN CORPUSCULAR VOLUME 91 fL (80-100); MONOCYTES # (AUTO) 0.6 K/uL (0.1-1.0); MONOCYTES % (AUTO) 9.3 % (2.0-9.0); NEUTROPHILS # (AUTO) 3.4 K/uL (1.8-7.7); NEUTROPHILS % (AUTO) 57.2 % (40.0-70.0); PLATELET COUNT (AUTO) 174 K/uL (150-450); RED BLOOD CELL COUNT(AUTO) 4.66 MIL/uL (4.50-5.90); RED CELL DISTRIBUTION WIDTH 14.3 % (11.5-14.5)
[2018-09-17] MEDS: FLUoxetine HCL 20 MG CAPSULE PO SCH (08:27)
[2018-09-17] MEDS: LORazepam 2 MG TABLET PO PRN ×2 (08:27→16:46)
[2018-09-17] MEDS: BACITRACIN 28.4 GM OINTMENT TP SCH ×2 (08:27→16:46)
[2018-09-17] MEDS: HALOPERIDOL 5 MG TABLET PO PRN (08:27)
[2018-09-17] MEDS: RisperiDONE 3 MG TABLET PO SCH ×2 (08:27→20:20)
[2018-09-17 08:47] VITALS: BP 107/83
[2018-09-17 08:49] LABS: ALANINE AMINOTRANSFERASE 22 U/L (12-78); ALBUMIN 3.4 g/dL (3.4-5.0); ALKALINE PHOSPHATASE 73 U/L (46-116); ANION GAP 7 mmol/L (8-16); ASPARTATE AMINOTRANSFERASE 25 U/L (15-37); BILIRUBIN,TOTAL 0.6 mg/dL (0.1-1.0); CALCIUM, TOTAL 8.9 mg/dL (8.8-10.5); CARBON DIOXIDE 31 mmol/L (22-29); CHLORIDE 105 mmol/L (98-107); CHOL/HDL RATIO 2.7 (4.2-7.3); CHOLESTEROL 149 mg/dL (131-200); CREATININE 0.86 mg/dL (0.60-1.30); FREE T4 (FREE THYROXINE) 1.06 ng/dL (0.76-1.46); GLOMERULAR FILTR. RATE CALC > 60 mL/min (>60); GLUCOSE,RANDOM 95 mg/dL (70-110); HDL CHOLESTEROL 55 mg/dL (40-60); HEMOGLOBIN A1C 5.7 % (4.5-6.2); LDL CHOL (CALC.) 61 mg/dL (0-130); POTASSIUM 4.2 mmol/L (3.5-5.1); SODIUM SERUM 143 mmol/L (136-145); THYROID STIMULATING HORMONE 1.28 uIU/mL (0.36-3.74); TOTAL PROTEIN, SERUM 6.6 g/dL (6.4-8.2); TRIGLYCERIDES 167 mg/dL (15-150); UREA NITROGEN, BLOOD 18 mg/dL (7-18)
[2018-09-17] MEDS: FAMOTIDINE 20 MG TABLET PO SCH ×2 (09:09→16:46)
[2018-09-17 16:08] VITALS: BP 103/64
[2018-09-18 00:15] VITALS: BP 118/74
[2018-09-18] MEDS ORDERED: FAMO20 PO (05:25)
[2018-09-18] MEDS ORDERED: BACI30OI6 TP (05:25)
== END 2018-09-18 07:15 | disposition home or self-care (01) | DRG 750 ==
LOC: B2S 21:45 → EDSTATUS 21:58
PROVIDERS: ATTEND Psychiatry & Neurology Child & Adolescent Psychiatry
DX: F25.1 Schizoaffective disorder, depressive type (principal); D64.9 Anemia, unspecified; E78.5 Hyperlipidemia, unspecified; F15.90 Other stimulant use, unspecified, uncomplicated; J44.9 Chronic obstructive pulmonary disease, unspecified; K21.9 Gastro-esophageal reflux disease without esophagitis; K59.00 Constipation, unspecified; Z91.5 Personal history of self-harm
CPT/HCPCS: 83036; 84439; 84443; J3535

== ENCOUNTER 2018-09-26 04:10 | Inpatient (IN) | payer MEDICAID ==
[~2018-09-26 04:10] MED LIST changes: +BACI30OI6 TP; +FAMO20 PO; -NICO-703 TD
[2018-09-26 05:21] VITALS: BP 121/75
[2018-09-26 06:24] VITALS: BP 120/52
[2018-09-26] MEDS ORDERED: HALOPERIDOL 5 MG TABLET PO PRN (06:30)
[2018-09-26] MEDS ORDERED: LORazepam 2 MG TABLET PO PRN (06:30)
[2018-09-26] MEDS ORDERED: ZOLPIDEM TARTRATE 10 MG TABLET PO PRN (06:30)
[2018-09-26] MEDS ORDERED: -PHARMACY VACCINE NOTE- MISC ONE (07:15)
[2018-09-26] MEDS ORDERED: CloNIDine HCL 0.1 MG TABLET PO PRN (07:30)
[2018-09-26] MEDS ORDERED: ALBUTEROL SULFATE HFA 90 MCG/PUFF 8 GM INHALER IH PRN (07:30)
[2018-09-26] MEDS ORDERED: MAG HYDROX/AL HYDROX/SIMETH ES 30 ML SUSPENSION UDCUP PO PRN (07:30)
[2018-09-26] MEDS ORDERED: IBUPROFEN 400 MG TABLET PO PRN (07:30)
[2018-09-26] MEDS ORDERED: PETROLATUM,WHITE 28 GM JELLY TP PRN (07:30)
[2018-09-26] MEDS ORDERED: DOCUSATE SODIUM 100 MG CAPSULE PO PRN (07:30)
[2018-09-26] MEDS ORDERED: MAGNESIUM HYDROXIDE SUSPENSION 30 ML UDCUP PO PRN (07:30)
[2018-09-26] MEDS ORDERED: ONDANSETRON HCL 4 MG TABLET PO PRN (07:30)
[2018-09-26] MEDS ORDERED: LOPERAMIDE HCL 2 MG CAPSULE PO PRN (07:30)
[2018-09-26] MEDS ORDERED: NICOTINE 14 MG/24 HOUR PATCH TD PRN (07:30)
[2018-09-26] MEDS ORDERED: GuaiFENesin/D-METHORPHAN [SUGAR-FREE] 200-20MG/10 ML SYRUP UDCUP PO PRN (07:30)
[2018-09-26] MEDS ORDERED: ACETAMINOPHEN 325 MG TABLET PO PRN (07:30)
[2018-09-26] MEDS: FLUoxetine HCL 20 MG CAPSULE PO SCH (10:00)
[2018-09-26] MEDS: RisperiDONE 3 MG TABLET PO SCH ×2 (10:00→20:42)
[2018-09-26] MEDS: FAMOTIDINE 20 MG TABLET PO SCH (16:29)
[2018-09-27 07:31] LABS: BASOPHILS % (AUTO) 0.3 % (0.0-2.0); EOSINOPHILS % (AUTO) 5.8 % (1.0-6.0); HEMOGLOBIN 14.4 g/dL (13.5-17.5); LYMPHOCYTES # (AUTO) 1.6 K/uL (1.0-4.8); LYMPHOCYTES % (AUTO) 28.9 % (22.0-44.0); MEAN CORPUSCULAR HEMOGLOBIN 30.9 pg (26.0-34.0); MEAN CORPUSCULAR HGB CONC 33.5 G/dL (31.0-37.0); MEAN CORPUSCULAR VOLUME 92 fL (80-100); MONOCYTES # (AUTO) 0.5 K/uL (0.1-1.0); MONOCYTES % (AUTO) 9.7 % (2.0-9.0); NEUTROPHILS # (AUTO) 3.1 K/uL (1.8-7.7); NEUTROPHILS % (AUTO) 55.3 % (40.0-70.0); PLATELET COUNT (AUTO) 216 K/uL (150-450); RED BLOOD CELL COUNT(AUTO) 4.66 MIL/uL (4.50-5.90); RED CELL DISTRIBUTION WIDTH 13.8 % (11.5-14.5)
[2018-09-27 07:47] LABS: HEMOGLOBIN A1C 5.7 % (4.5-6.2)
[2018-09-27 08:05] LABS: ALANINE AMINOTRANSFERASE 24 U/L (12-78); ALKALINE PHOSPHATASE 64 U/L (46-116); ANION GAP 6 mmol/L (8-16); ASPARTATE AMINOTRANSFERASE 34 U/L (15-37); BILIRUBIN,TOTAL 0.6 mg/dL (0.1-1.0); CARBON DIOXIDE 28 mmol/L (22-29); CHLORIDE 107 mmol/L (98-107); CHOL/HDL RATIO 2.3 (4.2-7.3); CHOLESTEROL 122 mg/dL (131-200); CREATININE 0.86 mg/dL (0.60-1.30); FREE T4 (FREE THYROXINE) 1.26 ng/dL (0.76-1.46); GLOMERULAR FILTR. RATE CALC > 60 mL/min (>60); GLUCOSE,RANDOM 93 mg/dL (70-110); HDL CHOLESTEROL 52 mg/dL (40-60); LDL CHOL (CALC.) 58 mg/dL (0-130); POTASSIUM 3.9 mmol/L (3.5-5.1); SODIUM SERUM 141 mmol/L (136-145); THYROID STIMULATING HORMONE 0.98 uIU/mL (0.36-3.74); TOTAL PROTEIN, SERUM 6.8 g/dL (6.4-8.2); TRIGLYCERIDES 58 mg/dL (15-150); UREA NITROGEN, BLOOD 14 mg/dL (7-18)
[2018-09-27 08:42] VITALS: BP 100/61
[2018-09-27] MEDS: FLUoxetine HCL 20 MG CAPSULE PO SCH (08:57)
[2018-09-27] MEDS: FAMOTIDINE 20 MG TABLET PO SCH ×2 (08:57→17:36)
[2018-09-27] MEDS: RisperiDONE 3 MG TABLET PO SCH ×2 (08:57→20:32)
[2018-09-27 16:43] VITALS: BP 115/69
[2018-09-28 08:39] VITALS: BP 117/60
[2018-09-28] MEDS: RisperiDONE 3 MG TABLET PO SCH ×2 (09:12→20:25)
[2018-09-28] MEDS: FLUoxetine HCL 20 MG CAPSULE PO SCH (09:12)
[2018-09-28] MEDS: FAMOTIDINE 20 MG TABLET PO SCH ×2 (09:13→16:19)
[2018-09-28 09:39] VITALS: BP 120/70
[2018-09-28 16:03] VITALS: BP 116/64
[2018-09-29] MEDS: FLUoxetine HCL 20 MG CAPSULE PO SCH (08:20)
[2018-09-29] MEDS: FAMOTIDINE 20 MG TABLET PO SCH ×2 (08:20→17:06)
[2018-09-29] MEDS: RisperiDONE 3 MG TABLET PO SCH ×2 (08:20→20:22)
[2018-09-29 08:43] VITALS: BP 115/63
[2018-09-29 18:04] VITALS: BP 104/62
[2018-09-30 00:31] VITALS: BP 121/83
[2018-09-30 08:41] VITALS: BP 105/60
[2018-09-30] MEDS: FLUoxetine HCL 20 MG CAPSULE PO SCH (08:55)
[2018-09-30] MEDS: RisperiDONE 3 MG TABLET PO SCH (08:55)
[2018-09-30] MEDS: FAMOTIDINE 20 MG TABLET PO SCH (08:55)
== END 2018-09-30 13:50 | disposition home or self-care (01) | DRG 750 ==
LOC: B2S 05:43
PROVIDERS: ADMIT Psychiatry & Neurology Child & Adolescent Psychiatry; ATTEND Psychiatry & Neurology Child & Adolescent Psychiatry
DX: F25.0 Schizoaffective disorder, bipolar type (principal); R45.851 Suicidal ideations; Z59.0 Homelessness; K21.9 Gastro-esophageal reflux disease without esophagitis; F10.10 Alcohol abuse, uncomplicated; F15.10 Other stimulant abuse, uncomplicated; J44.9 Chronic obstructive pulmonary disease, unspecified
CPT/HCPCS: 83036; 84439; 84443; 87081

== ENCOUNTER 2018-10-13 15:04 | Inpatient (IN) | payer MEDICAID ==
[~2018-10-13] VITALS: Ht 177.8 cm; Wt 71.7 kg
[~2018-10-13 15:04] MED LIST changes: -BACI30OI6 TP; -FAMO20 PO
[2018-10-13] MEDS ORDERED: HALOPERIDOL 5 MG TABLET PO PRN (16:30)
[2018-10-13 16:47] VITALS: BP 129/68
[2018-10-13 17:05] VITALS: BP 121/64
[2018-10-13] MEDS: LORazepam 2 MG TABLET PO PRN (17:13)
[2018-10-14 06:23] VITALS: BP 118/74
[2018-10-14 08:14] LABS: BASOPHILS % (AUTO) 0.5 % (0.0-2.0); EOSINOPHILS % (AUTO) 3.7 % (1.0-6.0); HEMATOCRIT 39.6 % (41-53); HEMOGLOBIN 13.2 g/dL (13.5-17.5); LYMPHOCYTES # (AUTO) 1.3 K/uL (1.0-4.8); LYMPHOCYTES % (AUTO) 26.6 % (22.0-44.0); MEAN CORPUSCULAR HEMOGLOBIN 30.5 pg (26.0-34.0); MEAN CORPUSCULAR HGB CONC 33.3 G/dL (31.0-37.0); MEAN CORPUSCULAR VOLUME 92 fL (80-100); MONOCYTES # (AUTO) 0.4 K/uL (0.1-1.0); MONOCYTES % (AUTO) 8.6 % (2.0-9.0); NEUTROPHILS # (AUTO) 2.9 K/uL (1.8-7.7); NEUTROPHILS % (AUTO) 60.6 % (40.0-70.0); PLATELET COUNT (AUTO) 209 K/uL (150-450); RED BLOOD CELL COUNT(AUTO) 4.33 MIL/uL (4.50-5.90); RED CELL DISTRIBUTION WIDTH 13.8 % (11.5-14.5)
[2018-10-14 08:32] LABS: HEMOGLOBIN A1C 5.6 % (4.5-6.2)
[2018-10-14 08:57] LABS: ALANINE AMINOTRANSFERASE 16 U/L (12-78); ALKALINE PHOSPHATASE 68 U/L (46-116); ANION GAP 7 mmol/L (8-16); ASPARTATE AMINOTRANSFERASE 15 U/L (15-37); BILIRUBIN,TOTAL 0.2 mg/dL (0.1-1.0); CALCIUM, TOTAL 8.9 mg/dL (8.8-10.5); CARBON DIOXIDE 27 mmol/L (22-29); CHLORIDE 107 mmol/L (98-107); CHOLESTEROL 133 mg/dL (131-200); CREATININE 0.83 mg/dL (0.60-1.30); GLOMERULAR FILTR. RATE CALC > 60 mL/min (>60); GLUCOSE,RANDOM 88 mg/dL (70-110); HDL CHOLESTEROL 44 mg/dL (40-60); LDL CHOL (CALC.) 75 mg/dL (0-130); POTASSIUM 4.2 mmol/L (3.5-5.1); SODIUM SERUM 141 mmol/L (136-145); THYROID STIMULATING HORMONE 0.76 uIU/mL (0.36-3.74); TOTAL PROTEIN, SERUM 6.2 g/dL (6.4-8.2); TRIGLYCERIDES 71 mg/dL (15-150); UREA NITROGEN, BLOOD 15 mg/dL (7-18)
[2018-10-14] MEDS ORDERED: MAGNESIUM HYDROXIDE SUSPENSION 30 ML UDCUP PO PRN (13:45)
[2018-10-14] MEDS ORDERED: LOPERAMIDE HCL 2 MG CAPSULE PO PRN (13:45)
[2018-10-14] MEDS ORDERED: ALBUTEROL SULFATE HFA 90 MCG/PUFF 8 GM INHALER IH PRN (13:45)
[2018-10-14] MEDS ORDERED: CloNIDine HCL 0.1 MG TABLET PO PRN (13:45)
[2018-10-14] MEDS ORDERED: ACETAMINOPHEN 325 MG TABLET PO PRN (13:45)
[2018-10-14] MEDS ORDERED: IBUPROFEN 400 MG TABLET PO PRN (13:45)
[2018-10-14] MEDS ORDERED: PETROLATUM,WHITE 28 GM JELLY TP PRN (13:45)
[2018-10-14] MEDS ORDERED: GuaiFENesin/D-METHORPHAN [SUGAR-FREE] 200-20MG/10 ML SYRUP UDCUP PO PRN (13:45)
[2018-10-14] MEDS ORDERED: DOCUSATE SODIUM 100 MG CAPSULE PO PRN (13:45)
[2018-10-14] MEDS ORDERED: NICOTINE 14 MG/24 HOUR PATCH TD PRN (13:45)
[2018-10-14] MEDS ORDERED: ONDANSETRON HCL 4 MG TABLET PO PRN (13:45)
[2018-10-14] MEDS ORDERED: MAG HYDROX/AL HYDROX/SIMETH ES 30 ML SUSPENSION UDCUP PO PRN (13:45)
[2018-10-14 16:00] VITALS: BP 127/75
[2018-10-14] MEDS: LORazepam 2 MG TABLET PO PRN (16:21)
[2018-10-14] MEDS ORDERED: BENZOCAINE 20% 11.9 GM GEL TP PRN (17:00)
[2018-10-14] MEDS: RisperiDONE 3 MG TABLET PO SCH (20:21)
[2018-10-14] MEDS: ZOLPIDEM TARTRATE 10 MG TABLET PO PRN (20:21)
[2018-10-15 01:16] VITALS: BP 112/63
[2018-10-15 08:10] VITALS: BP 128/72
[2018-10-15] MEDS: FLUoxetine HCL 20 MG CAPSULE PO SCH (08:54)
[2018-10-15] MEDS: RisperiDONE 3 MG TABLET PO SCH ×2 (08:54→20:27)
[2018-10-15 16:33] VITALS: BP 130/76
[2018-10-15] MEDS: LORazepam 2 MG TABLET PO PRN (20:27)
[2018-10-16 01:20] VITALS: BP 120/68
[2018-10-16] MEDS: RisperiDONE 3 MG TABLET PO SCH ×2 (08:47→20:43)
[2018-10-16] MEDS: FLUoxetine HCL 20 MG CAPSULE PO SCH (08:47)
[2018-10-16 08:52] VITALS: BP 108/67
[2018-10-16] MEDS: LORazepam 2 MG TABLET PO PRN (16:30)
[2018-10-16 17:05] VITALS: BP 103/69
[2018-10-16] MEDS: ZOLPIDEM TARTRATE 10 MG TABLET PO PRN (20:43)
[2018-10-17 06:38] VITALS: BP 118/78
[2018-10-17 08:59] VITALS: BP 126/63
[2018-10-17] MEDS: RisperiDONE 3 MG TABLET PO SCH ×2 (09:46→20:20)
[2018-10-17] MEDS: FLUoxetine HCL 20 MG CAPSULE PO SCH (09:46)
[2018-10-17 16:00] VITALS: BP 130/78
[2018-10-17] MEDS: LORazepam 2 MG TABLET PO PRN (16:35)
[2018-10-17] MEDS: ZOLPIDEM TARTRATE 10 MG TABLET PO PRN (20:20)
[2018-10-18 05:32] VITALS: BP 122/78
[2018-10-18 08:59] VITALS: BP 105/67
[2018-10-18] MEDS: RisperiDONE 3 MG TABLET PO SCH ×2 (09:02→20:38)
[2018-10-18] MEDS: LORazepam 2 MG TABLET PO PRN ×3 (09:02→18:17)
[2018-10-18] MEDS: FLUoxetine HCL 20 MG CAPSULE PO SCH (09:02)
[2018-10-18 16:00] VITALS: BP 110/65
[2018-10-18] MEDS: ZOLPIDEM TARTRATE 10 MG TABLET PO PRN (20:38)
[2018-10-19 02:55] VITALS: BP 114/68
[2018-10-19] MEDS: FLUoxetine HCL 20 MG CAPSULE PO SCH (08:09)
[2018-10-19] MEDS: RisperiDONE 3 MG TABLET PO SCH ×2 (08:09→20:48)
[2018-10-19 08:38] VITALS: BP 112/71
[2018-10-19] MEDS: LORazepam 2 MG TABLET PO PRN ×2 (12:00→16:00)
[2018-10-19 16:07] VITALS: BP 111/64
[2018-10-19] MEDS: ZOLPIDEM TARTRATE 10 MG TABLET PO PRN (20:48)
[2018-10-20 06:29] VITALS: BP 117/68
[2018-10-20 08:14] VITALS: BP 110/67
[2018-10-20] MEDS: FLUoxetine HCL 20 MG CAPSULE PO SCH (08:16)
[2018-10-20] MEDS: RisperiDONE 3 MG TABLET PO SCH (08:16)
[2018-10-20] MEDS: LORazepam 2 MG TABLET PO PRN (08:40)
== END 2018-10-20 15:00 | disposition home or self-care (01) | DRG 750 ==
LOC: B3A 16:27
PROVIDERS: ATTEND Psychiatry & Neurology Child & Adolescent Psychiatry
DX: F25.1 Schizoaffective disorder, depressive type (principal); R45.851 Suicidal ideations; F41.9 Anxiety disorder, unspecified; R45.87 Impulsiveness; K21.9 Gastro-esophageal reflux disease without esophagitis; J44.9 Chronic obstructive pulmonary disease, unspecified; D64.9 Anemia, unspecified; F10.10 Alcohol abuse, uncomplicated; F19.10 Other psychoactive substance abuse, uncomplicated; Z71.41 Alcohol abuse counseling and surveillance of alcoholic; Z79.899 Other long term (current) drug therapy; Z71.51 Drug abuse counseling and surveillance of drug abuser
CPT/HCPCS: 83036; 84439; 84443; 87081

== ENCOUNTER 2018-10-31 18:52 | Inpatient (IN) | payer MEDICAID ==
[~2018-10-31] VITALS: Ht 177.8 cm; Wt 72.1 kg
[2018-11-01 08:49] VITALS: BP 146/58
[2018-11-01] MEDS ORDERED: ZOLPIDEM TARTRATE 10 MG TABLET PO PRN (09:00)
[2018-11-01] MEDS ORDERED: HALOPERIDOL 5 MG TABLET PO PRN (09:00)
[2018-11-01] MEDS: FLUoxetine HCL 20 MG CAPSULE PO SCH (10:42)
[2018-11-01] MEDS: RisperiDONE 3 MG TABLET PO SCH ×2 (10:42→20:49)
[2018-11-01] MEDS ORDERED: -PHARMACY VACCINE NOTE- MISC ONE (11:30)
[2018-11-01 16:14] VITALS: BP 126/68
[2018-11-01] MEDS: LORazepam 2 MG TABLET PO PRN (16:15)
[2018-11-02 06:26] VITALS: BP 132/72
[2018-11-02 08:05] LABS: BASOPHILS % (AUTO) 0.4 % (0.0-2.0); EOSINOPHILS % (AUTO) 4.6 % (1.0-6.0); HEMATOCRIT 39.1 % (41-53); HEMOGLOBIN 13.1 g/dL (13.5-17.5); LYMPHOCYTES # (AUTO) 1.4 K/uL (1.0-4.8); LYMPHOCYTES % (AUTO) 28.7 % (22.0-44.0); MEAN CORPUSCULAR HEMOGLOBIN 30.8 pg (26.0-34.0); MEAN CORPUSCULAR HGB CONC 33.6 G/dL (31.0-37.0); MEAN CORPUSCULAR VOLUME 92 fL (80-100); MONOCYTES # (AUTO) 0.4 K/uL (0.1-1.0); MONOCYTES % (AUTO) 7.3 % (2.0-9.0); NEUTROPHILS # (AUTO) 2.9 K/uL (1.8-7.7); PLATELET COUNT (AUTO) 204 K/uL (150-450); RED BLOOD CELL COUNT(AUTO) 4.26 MIL/uL (4.50-5.90); RED CELL DISTRIBUTION WIDTH 13.9 % (11.5-14.5)
[2018-11-02 08:11] LABS: APPEARANCE,URINE CLEAR (CLEAR); BILIRUBIN,URINE NEGATIVE (NEGATIVE); GLUCOSE, URINE (UA) NEGATIVE (NEGATIVE); KETONES,URINE NEGATIVE (NEGATIVE); LEUKOCYTE ESTERASE ,URINE NEGATIVE (NEGATIVE); NITRATE,URINE NEGATIVE (NEGATIVE); OCCULT BLOOD,URINE NEGATIVE (NEGATIVE); PH,URINE 7.5 (5.0-8.0); PROTEIN,URINE NEGATIVE (NEGATIVE); UROBILINOGEN,URINE 0.2 mg/dL (<=1.0)
[2018-11-02 08:15] LABS: AMPHET/METH SCREEN,URINE NEGATIVE (NEGATIVE); BARBITURATE SCREEN, URINE NEGATIVE (NEGATIVE); BENZODIAZEPINES SCREEN,URINE NEGATIVE (NEGATIVE); CANNABINOID SCREEN,URINE NEGATIVE (NEGATIVE); COCAINE SCREEN,URINE NEGATIVE (NEGATIVE); METHADONE SCREEN, URINE NEGATIVE (NEGATIVE); OPIATE SCREEN,URINE NEGATIVE (NEGATIVE); PHENCYCLIDINE SCREEN,URINE NEGATIVE (NEGATIVE)
[2018-11-02 08:18] LABS: ALANINE AMINOTRANSFERASE 17 U/L (12-78); ALKALINE PHOSPHATASE 71 U/L (46-116); ANION GAP 8 mmol/L (8-16); ASPARTATE AMINOTRANSFERASE 15 U/L (15-37); BILIRUBIN,TOTAL 0.4 mg/dL (0.1-1.0); CALCIUM, TOTAL 8.8 mg/dL (8.8-10.5); CARBON DIOXIDE 27 mmol/L (22-29); CHLORIDE 108 mmol/L (98-107); CHOL/HDL RATIO 2.5 (4.2-7.3); CHOLESTEROL 115 mg/dL (131-200); CREATININE 0.87 mg/dL (0.60-1.30); GLOMERULAR FILTR. RATE CALC > 60 mL/min (>60); GLUCOSE,RANDOM 87 mg/dL (70-110); HDL CHOLESTEROL 46 mg/dL (40-60); LDL CHOL (CALC.) 60 mg/dL (0-130); POTASSIUM 3.6 mmol/L (3.5-5.1); SODIUM SERUM 143 mmol/L (136-145); TOTAL PROTEIN, SERUM 6.2 g/dL (6.4-8.2); TRIGLYCERIDES 44 mg/dL (15-150); UREA NITROGEN, BLOOD 9 mg/dL (7-18)
[2018-11-02 08:20] VITALS: BP 111/64
[2018-11-02] MEDS: FLUoxetine HCL 20 MG CAPSULE PO SCH (08:53)
[2018-11-02] MEDS: RisperiDONE 3 MG TABLET PO SCH ×2 (08:53→20:03)
[2018-11-02] MEDS: LORazepam 2 MG TABLET PO PRN (08:53)
[2018-11-02 16:40] VITALS: BP 118/73
[2018-11-03 06:42] VITALS: BP 114/65
[2018-11-03] MEDS: FLUoxetine HCL 20 MG CAPSULE PO SCH (08:43)
[2018-11-03] MEDS: RisperiDONE 3 MG TABLET PO SCH ×2 (08:43→20:13)
[2018-11-03] MEDS: LORazepam 2 MG TABLET PO PRN ×2 (10:15→16:39)
[2018-11-03 16:00] VITALS: BP 102/63
[2018-11-04 05:14] VITALS: BP 116/71
[2018-11-04] MEDS: FLUoxetine HCL 20 MG CAPSULE PO SCH (09:38)
[2018-11-04] MEDS: RisperiDONE 3 MG TABLET PO SCH ×2 (09:38→20:25)
[2018-11-04] MEDS: LORazepam 2 MG TABLET PO PRN ×2 (09:38→17:33)
[2018-11-04 16:53] VITALS: BP 108/66
[2018-11-05] MEDS: FLUoxetine HCL 20 MG CAPSULE PO SCH (09:04)
[2018-11-05] MEDS: RisperiDONE 3 MG TABLET PO SCH ×2 (09:04→20:27)
[2018-11-05 10:32] VITALS: BP 110/64
[2018-11-05] MEDS ORDERED: CloNIDine HCL 0.1 MG TABLET PO PRN (14:15)
[2018-11-05] MEDS ORDERED: GuaiFENesin/D-METHORPHAN [SUGAR-FREE] 200-20MG/10 ML SYRUP UDCUP PO PRN (14:15)
[2018-11-05] MEDS ORDERED: ACETAMINOPHEN 325 MG TABLET PO PRN (14:15)
[2018-11-05] MEDS ORDERED: PETROLATUM,WHITE 28 GM JELLY TP PRN (14:15)
[2018-11-05] MEDS ORDERED: NICOTINE 14 MG/24 HOUR PATCH TD PRN (14:15)
[2018-11-05] MEDS ORDERED: ALBUTEROL SULFATE HFA 90 MCG/PUFF 8 GM INHALER IH PRN (14:15)
[2018-11-05] MEDS ORDERED: ONDANSETRON HCL 4 MG TABLET PO PRN (14:15)
[2018-11-05] MEDS ORDERED: LOPERAMIDE HCL 2 MG CAPSULE PO PRN (14:15)
[2018-11-05] MEDS ORDERED: IBUPROFEN 400 MG TABLET PO PRN (14:15)
[2018-11-05] MEDS ORDERED: MAG HYDROX/AL HYDROX/SIMETH ES 30 ML SUSPENSION UDCUP PO PRN (14:15)
[2018-11-05] MEDS ORDERED: DOCUSATE SODIUM 100 MG CAPSULE PO PRN (14:15)
[2018-11-05] MEDS ORDERED: MAGNESIUM HYDROXIDE SUSPENSION 30 ML UDCUP PO PRN (14:15)
[2018-11-05 16:00] VITALS: BP 106/66
[2018-11-05] MEDS: LORazepam 2 MG TABLET PO PRN (16:20)
[2018-11-06 06:53] VITALS: BP 117/74
[2018-11-06 08:14] VITALS: BP 114/60
[2018-11-06] MEDS: LORazepam 2 MG TABLET PO PRN (08:55)
[2018-11-06] MEDS: RisperiDONE 3 MG TABLET PO SCH (08:55)
[2018-11-06] MEDS: FLUoxetine HCL 20 MG CAPSULE PO SCH (08:55)
== END 2018-11-06 13:50 | disposition home or self-care (01) | DRG 750 ==
LOC: B3A 11-01 09:09
PROVIDERS: ATTEND Psychiatry & Neurology Child & Adolescent Psychiatry
DX: F25.1 Schizoaffective disorder, depressive type (principal); R45.851 Suicidal ideations; F15.20 Other stimulant dependence, uncomplicated; J44.9 Chronic obstructive pulmonary disease, unspecified; K21.9 Gastro-esophageal reflux disease without esophagitis; D64.9 Anemia, unspecified; F19.90 Other psychoactive substance use, unspecified, uncomplicated; F41.9 Anxiety disorder, unspecified; R45.87 Impulsiveness; Z91.5 Personal history of self-harm
CPT/HCPCS: 86592; 87081

== ENCOUNTER 2018-11-26 11:34 | Inpatient (IN) | payer MEDICAID ==
[~2018-11-26] VITALS: Ht 177.8 cm; Wt 68.1 kg
[2018-11-26] MEDS ORDERED: HALOPERIDOL 5 MG TABLET PO PRN (12:45)
[2018-11-26 13:13] VITALS: BP 133/57
[2018-11-26] MEDS: LORazepam 2 MG TABLET PO PRN (16:49)
[2018-11-26] MEDS: RisperiDONE 3 MG TABLET PO SCH (20:50)
[2018-11-27 08:30] VITALS: BP 115/60
[2018-11-27] MEDS: FLUoxetine HCL 20 MG CAPSULE PO SCH (09:47)
[2018-11-27] MEDS: RisperiDONE 3 MG TABLET PO SCH ×2 (09:47→20:51)
[2018-11-27] MEDS ORDERED: MAGNESIUM HYDROXIDE SUSPENSION 30 ML UDCUP PO PRN (12:45)
[2018-11-27] MEDS ORDERED: ACETAMINOPHEN 325 MG TABLET PO PRN (12:45)
[2018-11-27] MEDS ORDERED: IBUPROFEN 400 MG TABLET PO PRN (12:45)
[2018-11-27] MEDS ORDERED: NICOTINE 14 MG/24 HOUR PATCH TD PRN (12:45)
[2018-11-27] MEDS ORDERED: GuaiFENesin/D-METHORPHAN [SUGAR-FREE] 200-20MG/10 ML SYRUP UDCUP PO PRN (12:45)
[2018-11-27] MEDS ORDERED: CloNIDine HCL 0.1 MG TABLET PO PRN (12:45)
[2018-11-27] MEDS ORDERED: DOCUSATE SODIUM 100 MG CAPSULE PO PRN (12:45)
[2018-11-27] MEDS ORDERED: MAG HYDROX/AL HYDROX/SIMETH ES 30 ML SUSPENSION UDCUP PO PRN (12:45)
[2018-11-27] MEDS ORDERED: LOPERAMIDE HCL 2 MG CAPSULE PO PRN (12:45)
[2018-11-27] MEDS ORDERED: PETROLATUM,WHITE 28 GM JELLY TP PRN (12:45)
[2018-11-27] MEDS ORDERED: ONDANSETRON HCL 4 MG TABLET PO PRN (12:45)
[2018-11-27 16:00] VITALS: BP 117/72
[2018-11-27] MEDS: ALBUTEROL SULFATE HFA 90 MCG/PUFF 8 GM INHALER IH PRN (16:10)
[2018-11-27] MEDS: LORazepam 2 MG TABLET PO PRN (16:11)
[2018-11-28 08:01] VITALS: BP 103/64
[2018-11-28 08:38] LABS: BASOPHILS % (AUTO) 0.5 % (0.0-2.0); EOSINOPHILS % (AUTO) 5.3 % (1.0-6.0); HEMATOCRIT 41.5 % (41-53); HEMOGLOBIN 13.5 g/dL (13.5-17.5); LYMPHOCYTES # (AUTO) 1.2 K/uL (1.0-4.8); LYMPHOCYTES % (AUTO) 30.7 % (22.0-44.0); MEAN CORPUSCULAR HGB CONC 32.6 G/dL (31.0-37.0); MEAN CORPUSCULAR VOLUME 92 fL (80-100); MONOCYTES # (AUTO) 0.4 K/uL (0.1-1.0); MONOCYTES % (AUTO) 10.4 % (2.0-9.0); NEUTROPHILS # (AUTO) 2.1 K/uL (1.8-7.7); NEUTROPHILS % (AUTO) 53.1 % (40.0-70.0); PLATELET COUNT (AUTO) 165 K/uL (150-450); RED BLOOD CELL COUNT(AUTO) 4.51 MIL/uL (4.50-5.90); RED CELL DISTRIBUTION WIDTH 13.6 % (11.5-14.5)
[2018-11-28] MEDS: RisperiDONE 3 MG TABLET PO SCH ×2 (08:55→20:24)
[2018-11-28] MEDS: FLUoxetine HCL 20 MG CAPSULE PO SCH (08:55)
[2018-11-28 09:00] LABS: HEMOGLOBIN A1C 5.4 % (4.5-6.2)
[2018-11-28 09:11] LABS: ALANINE AMINOTRANSFERASE 14 U/L (12-78); ALBUMIN 3.4 g/dL (3.4-5.0); ALKALINE PHOSPHATASE 65 U/L (46-116); ANION GAP 6 mmol/L (8-16); ASPARTATE AMINOTRANSFERASE 19 U/L (15-37); BILIRUBIN,TOTAL 0.4 mg/dL (0.1-1.0); CALCIUM, TOTAL 9.1 mg/dL (8.8-10.5); CARBON DIOXIDE 27 mmol/L (22-29); CHLORIDE 107 mmol/L (98-107); CHOL/HDL RATIO 3.5 (4.2-7.3); CHOLESTEROL 152 mg/dL (131-200); CREATININE 0.77 mg/dL (0.60-1.30); FREE T4 (FREE THYROXINE) 1.18 ng/dL (0.76-1.46); GLOMERULAR FILTR. RATE CALC > 60 mL/min (>60); GLUCOSE,RANDOM 109 mg/dL (70-110); HDL CHOLESTEROL 43 mg/dL (40-60); LDL CHOL (CALC.) 93 mg/dL (0-130); SODIUM SERUM 140 mmol/L (136-145); THYROID STIMULATING HORMONE 0.25 uIU/mL (0.36-3.74); TOTAL PROTEIN, SERUM 6.7 g/dL (6.4-8.2); TRIGLYCERIDES 82 mg/dL (15-150); UREA NITROGEN, BLOOD 9 mg/dL (7-18)
[2018-11-28 16:00] VITALS: BP 129/76
[2018-11-28] MEDS: LORazepam 2 MG TABLET PO PRN (16:14)
[2018-11-29 08:53] VITALS: BP 110/60
[2018-11-29] MEDS: RisperiDONE 3 MG TABLET PO SCH ×2 (08:53→20:20)
[2018-11-29] MEDS: FLUoxetine HCL 20 MG CAPSULE PO SCH (08:53)
[2018-11-29 16:00] VITALS: BP 115/66
[2018-11-29] MEDS: ALBUTEROL SULFATE HFA 90 MCG/PUFF 8 GM INHALER IH PRN (16:53)
[2018-11-29] MEDS: LORazepam 2 MG TABLET PO PRN (16:54)
[2018-11-29] MEDS: ZOLPIDEM TARTRATE 10 MG TABLET PO PRN (20:53)
[2018-11-30 06:02] VITALS: BP 122/67
[2018-11-30] MEDS: FLUoxetine HCL 20 MG CAPSULE PO SCH (08:15)
[2018-11-30] MEDS: RisperiDONE 3 MG TABLET PO SCH ×2 (08:15→20:28)
[2018-11-30] MEDS: LORazepam 2 MG TABLET PO PRN (16:09)
[2018-11-30] MEDS: ALBUTEROL SULFATE HFA 90 MCG/PUFF 8 GM INHALER IH PRN (16:09)
[2018-11-30 16:22] VITALS: BP 112/68
[2018-11-30] MEDS: ZOLPIDEM TARTRATE 10 MG TABLET PO PRN (20:28)
[2018-12-01 08:39] VITALS: BP 111/66
[2018-12-01] MEDS: RisperiDONE 3 MG TABLET PO SCH (08:48)
[2018-12-01] MEDS: FLUoxetine HCL 20 MG CAPSULE PO SCH (08:48)
[2018-12-01] MEDS: ALBUTEROL SULFATE HFA 90 MCG/PUFF 8 GM INHALER IH PRN (08:49)
== END 2018-12-01 13:20 | disposition home or self-care (01) | DRG 750 ==
LOC: B3A 13:10
PROVIDERS: ADMIT Psychiatry & Neurology Psychiatry; ATTEND Psychiatry & Neurology Child & Adolescent Psychiatry
DX: F25.0 Schizoaffective disorder, bipolar type (principal); D64.9 Anemia, unspecified; J44.9 Chronic obstructive pulmonary disease, unspecified; K21.9 Gastro-esophageal reflux disease without esophagitis; F41.9 Anxiety disorder, unspecified; F19.10 Other psychoactive substance abuse, uncomplicated; Z71.51 Drug abuse counseling and surveillance of drug abuser; Z79.899 Other long term (current) drug therapy
CPT/HCPCS: 83036; 84439; 84443; J3535

== ENCOUNTER 2019-03-04 18:11 | Inpatient (IN) | payer MEDICAID ==
[~2019-03-04] VITALS: Ht 177.8 cm; Wt 69.9 kg
[2019-03-04] MEDS ORDERED: ZOLPIDEM TARTRATE 10 MG TABLET PO PRN (19:00)
[2019-03-04] MEDS ORDERED: HALOPERIDOL 5 MG TABLET PO PRN (19:00)
[2019-03-04] MEDS ORDERED: ONDANSETRON HCL 4 MG TABLET PO PRN (20:00)
[2019-03-04] MEDS ORDERED: PETROLATUM,WHITE 28 GM JELLY TP PRN (20:00)
[2019-03-04] MEDS ORDERED: ALBUTEROL SULFATE HFA 90 MCG/PUFF 8 GM INHALER IH PRN (20:00)
[2019-03-04] MEDS ORDERED: MAG HYDROX/AL HYDROX/SIMETH ES 30 ML SUSPENSION UDCUP PO PRN (20:00)
[2019-03-04] MEDS ORDERED: LOPERAMIDE HCL 2 MG CAPSULE PO PRN (20:00)
[2019-03-04] MEDS ORDERED: NICOTINE 14 MG/24 HOUR PATCH TD PRN (20:00)
[2019-03-04] MEDS ORDERED: MAGNESIUM HYDROXIDE SUSPENSION 30 ML UDCUP PO PRN (20:00)
[2019-03-04] MEDS ORDERED: IBUPROFEN 400 MG TABLET PO PRN (20:00)
[2019-03-04] MEDS ORDERED: DOCUSATE SODIUM 100 MG CAPSULE PO PRN (20:00)
[2019-03-04] MEDS ORDERED: ACETAMINOPHEN 325 MG TABLET PO PRN (20:00)
[2019-03-04] MEDS ORDERED: GuaiFENesin/D-METHORPHAN [SUGAR-FREE] 200-20MG/10 ML SYRUP UDCUP PO PRN (20:00)
[2019-03-04] MEDS ORDERED: CloNIDine HCL 0.1 MG TABLET PO PRN (20:00)
[2019-03-04 20:18] VITALS: BP 133/66
[2019-03-04] MEDS: RisperiDONE 3 MG TABLET PO SCH (20:18)
[2019-03-04] MEDS: LORazepam 1 MG TABLET PO PRN (20:18)
[2019-03-05 06:30] VITALS: BP 113/68
[2019-03-05 08:02] LABS: BASOPHILS % (AUTO) 0.7 % (0.0-2.0); EOSINOPHILS % (AUTO) 4.8 % (1.0-6.0); HEMATOCRIT 38.8 % (41-53); HEMOGLOBIN 13.1 g/dL (13.5-17.5); LYMPHOCYTES # (AUTO) 1.7 K/uL (1.0-4.8); LYMPHOCYTES % (AUTO) 31.5 % (22.0-44.0); MEAN CORPUSCULAR HEMOGLOBIN 30.6 pg (26.0-34.0); MEAN CORPUSCULAR HGB CONC 33.9 G/dL (31.0-37.0); MEAN CORPUSCULAR VOLUME 90 fL (80-100); MONOCYTES # (AUTO) 0.5 K/uL (0.1-1.0); MONOCYTES % (AUTO) 8.8 % (2.0-9.0); NEUTROPHILS # (AUTO) 2.9 K/uL (1.8-7.7); NEUTROPHILS % (AUTO) 54.2 % (40.0-70.0); PLATELET COUNT (AUTO) 184 K/uL (150-450)
[2019-03-05 08:11] LABS: HEMOGLOBIN A1C 5.5 % (4.5-6.2)
[2019-03-05 08:27] LABS: ALANINE AMINOTRANSFERASE 15 U/L (12-78); ALBUMIN 3.2 g/dL (3.4-5.0); ALKALINE PHOSPHATASE 67 U/L (46-116); ANION GAP 4 mmol/L (8-16); ASPARTATE AMINOTRANSFERASE 16 U/L (15-37); BILIRUBIN,TOTAL 0.3 mg/dL (0.1-1.0); CALCIUM, TOTAL 8.5 mg/dL (8.8-10.5); CARBON DIOXIDE 29 mmol/L (22-29); CHLORIDE 107 mmol/L (98-107); CHOL/HDL RATIO 2.6 (4.2-7.3); CHOLESTEROL 135 mg/dL (131-200); CREATININE 0.92 mg/dL (0.60-1.30); FREE T4 (FREE THYROXINE) 1.06 ng/dL (0.76-1.46); GLOMERULAR FILTR. RATE CALC > 60 mL/min (>60); GLUCOSE,RANDOM 93 mg/dL (70-110); HDL CHOLESTEROL 52 mg/dL (40-60); LDL CHOL (CALC.) 68 mg/dL (0-130); POTASSIUM 4.5 mmol/L (3.5-5.1); SODIUM SERUM 140 mmol/L (136-145); THYROID STIMULATING HORMONE 1.77 uIU/mL (0.36-3.74); TRIGLYCERIDES 77 mg/dL (15-150); UREA NITROGEN, BLOOD 9 mg/dL (7-18)
[2019-03-05 08:43] VITALS: BP 112/59
[2019-03-05] MEDS: RisperiDONE 3 MG TABLET PO SCH ×2 (09:00→21:08)
[2019-03-05] MEDS: FLUoxetine HCL 20 MG CAPSULE PO SCH (09:00)
[2019-03-05] MEDS: LORazepam 1 MG TABLET PO PRN ×2 (14:44→16:58)
[2019-03-05 17:11] VITALS: BP 137/74
[2019-03-06 03:38] VITALS: BP 131/71
[2019-03-06 08:00] VITALS: BP 112/63
[2019-03-06] MEDS: FLUoxetine HCL 20 MG CAPSULE PO SCH (08:29)
[2019-03-06] MEDS: RisperiDONE 3 MG TABLET PO SCH ×2 (08:29→20:27)
[2019-03-06] MEDS: LORazepam 1 MG TABLET PO PRN (13:48)
[2019-03-06 16:16] VITALS: BP 112/67
[2019-03-07 05:49] VITALS: BP 115/75
[2019-03-07 08:19] VITALS: BP 114/60
[2019-03-07] MEDS: RisperiDONE 3 MG TABLET PO SCH ×2 (08:25→20:47)
[2019-03-07] MEDS: FLUoxetine HCL 20 MG CAPSULE PO SCH (08:25)
[2019-03-07] MEDS: LORazepam 1 MG TABLET PO PRN (10:55)
[2019-03-07 16:12] VITALS: BP 125/70
[2019-03-08 05:16] VITALS: BP 113/72
[2019-03-08] MEDS: RisperiDONE 3 MG TABLET PO SCH ×2 (09:18→20:20)
[2019-03-08] MEDS: FLUoxetine HCL 20 MG CAPSULE PO SCH (09:18)
[2019-03-08 16:00] VITALS: BP 101/72
[2019-03-09 05:33] VITALS: BP 103/68
[2019-03-09 08:00] VITALS: BP 107/60
[2019-03-09] MEDS: RisperiDONE 3 MG TABLET PO SCH (09:18)
[2019-03-09] MEDS: FLUoxetine HCL 20 MG CAPSULE PO SCH (09:18)
== END 2019-03-09 13:26 | disposition home or self-care (01) | DRG 750 ==
LOC: UNDOADMIN 18:57 → B3A 18:57
PROVIDERS: ADMIT Psychiatry & Neurology Child & Adolescent Psychiatry; ATTEND Psychiatry & Neurology Child & Adolescent Psychiatry
DX: F25.0 Schizoaffective disorder, bipolar type (principal); D64.9 Anemia, unspecified; F32.9 Major depressive disorder, single episode, unspecified; J44.9 Chronic obstructive pulmonary disease, unspecified; K21.9 Gastro-esophageal reflux disease without esophagitis; F41.9 Anxiety disorder, unspecified; Z79.899 Other long term (current) drug therapy
CPT/HCPCS: 83036; 84439; 84443; J3535

== ENCOUNTER 2019-05-31 15:15 | Inpatient (IN) | payer MEDICAID ==
[~2019-05-31] VITALS: Ht 167.6 cm; Wt 74.2 kg
[2019-05-31 20:21] VITALS: BP 107/60
[2019-05-31] MEDS ORDERED: ZOLPIDEM TARTRATE 10 MG TABLET PO PRN (20:45)
[2019-05-31] MEDS ORDERED: HALOPERIDOL 5 MG TABLET PO PRN (20:45)
[2019-05-31 21:34] VITALS: BP 118/61
[2019-05-31] MEDS ORDERED: ONDANSETRON HCL 4 MG TABLET PO PRN (22:15)
[2019-05-31] MEDS ORDERED: MAG HYDROX/AL HYDROX/SIMETH ES 30 ML SUSPENSION UDCUP PO PRN (22:15)
[2019-05-31] MEDS ORDERED: LOPERAMIDE HCL 2 MG CAPSULE PO PRN (22:15)
[2019-05-31] MEDS ORDERED: MAGNESIUM HYDROXIDE SUSPENSION 30 ML UDCUP PO PRN (22:15)
[2019-05-31] MEDS ORDERED: GuaiFENesin/D-METHORPHAN [SUGAR-FREE] 200-20MG/10 ML SYRUP UDCUP PO PRN (22:15)
[2019-05-31] MEDS ORDERED: ALBUTEROL SULFATE HFA 90 MCG/PUFF 8 GM INHALER IH PRN (22:15)
[2019-05-31] MEDS ORDERED: ACETAMINOPHEN 325 MG TABLET PO PRN (22:15)
[2019-05-31] MEDS ORDERED: NICOTINE 14 MG/24 HOUR PATCH TD PRN (22:15)
[2019-05-31] MEDS ORDERED: CloNIDine HCL 0.1 MG TABLET PO PRN (22:15)
[2019-05-31] MEDS ORDERED: DOCUSATE SODIUM 100 MG CAPSULE PO PRN (22:15)
[2019-05-31] MEDS ORDERED: PETROLATUM,WHITE 28 GM JELLY TP PRN (22:15)
[2019-05-31] MEDS ORDERED: IBUPROFEN 400 MG TABLET PO PRN (22:15)
[2019-06-01 05:03] VITALS: BP 109/62
[2019-06-01 08:04] LABS: BASOPHILS % (AUTO) 0.5 % (0.0-2.0); HEMATOCRIT 39.1 % (41-53); HEMOGLOBIN 13.3 g/dL (13.5-17.5); MEAN CORPUSCULAR VOLUME 91 fL (80-100); MONOCYTES # (AUTO) 0.5 K/uL (0.1-1.0); NEUTROPHILS # (AUTO) 3.2 K/uL (1.8-7.7); NEUTROPHILS % (AUTO) 52.5 % (40.0-70.0); PLATELET COUNT (AUTO) 164 K/uL (150-450); RED BLOOD CELL COUNT(AUTO) 4.28 MIL/uL (4.50-5.90); RED CELL DISTRIBUTION WIDTH 14.2 % (11.5-14.5)
[2019-06-01 08:24] LABS: ALANINE AMINOTRANSFERASE 19 U/L (12-78); ALBUMIN 3.2 g/dL (3.4-5.0); ALKALINE PHOSPHATASE 67 U/L (46-116); ANION GAP 4 mmol/L (8-16); ASPARTATE AMINOTRANSFERASE 16 U/L (15-37); BILIRUBIN,TOTAL 0.2 mg/dL (0.1-1.0); CALCIUM, TOTAL 8.9 mg/dL (8.8-10.5); CARBON DIOXIDE 29 mmol/L (22-29); CHLORIDE 105 mmol/L (98-107); CHOL/HDL RATIO 2.8 (4.2-7.3); CHOLESTEROL 139 mg/dL (131-200); CREATININE 0.85 mg/dL (0.60-1.30); FREE T4 (FREE THYROXINE) 0.99 ng/dL (0.76-1.46); GLOMERULAR FILTR. RATE CALC > 60 mL/min (>60); GLUCOSE,RANDOM 91 mg/dL (70-110); HDL CHOLESTEROL 50 mg/dL (40-60); LDL CHOL (CALC.) 77 mg/dL (0-130); POTASSIUM 4.2 mmol/L (3.5-5.1); SODIUM SERUM 138 mmol/L (136-145); THYROID STIMULATING HORMONE 1.18 uIU/mL (0.36-3.74); TOTAL PROTEIN, SERUM 6.4 g/dL (6.4-8.2); TRIGLYCERIDES 60 mg/dL (15-150); UREA NITROGEN, BLOOD 13 mg/dL (7-18)
[2019-06-01 08:41] VITALS: BP 126/64
[2019-06-01] MEDS: RisperiDONE 3 MG TABLET PO SCH ×2 (13:53→21:16)
[2019-06-01] MEDS: FLUoxetine HCL 20 MG CAPSULE PO SCH (13:54)
[2019-06-01 16:21] VITALS: BP 117/66
[2019-06-02 05:07] VITALS: BP 121/68
[2019-06-02 08:43] VITALS: BP 103/57
[2019-06-02] MEDS: RisperiDONE 3 MG TABLET PO SCH ×2 (08:53→21:58)
[2019-06-02] MEDS: FLUoxetine HCL 20 MG CAPSULE PO SCH (08:53)
[2019-06-02 16:11] VITALS: BP 117/65
[2019-06-02] MEDS: LORazepam 2 MG TABLET PO PRN (16:48)
[2019-06-03 05:12] VITALS: BP 106/64
[2019-06-03 08:29] VITALS: BP 122/51
[2019-06-03] MEDS: RisperiDONE 3 MG TABLET PO SCH ×2 (08:46→20:36)
[2019-06-03] MEDS: FLUoxetine HCL 20 MG CAPSULE PO SCH (08:46)
[2019-06-03 12:59] VITALS: BP 115/72
[2019-06-03] MEDS: LORazepam 2 MG TABLET PO PRN (13:00)
[2019-06-03 16:21] VITALS: BP 109/66
[2019-06-04 00:33] VITALS: BP 103/61
[2019-06-04 08:22] VITALS: BP 107/67
[2019-06-04] MEDS: FLUoxetine HCL 20 MG CAPSULE PO SCH (08:46)
[2019-06-04] MEDS: RisperiDONE 3 MG TABLET PO SCH (08:46)
[2019-06-04 09:04] LABS: APPEARANCE,URINE CLEAR (CLEAR); BILIRUBIN,URINE NEGATIVE (NEGATIVE); GLUCOSE, URINE (UA) NEGATIVE (NEGATIVE); KETONES,URINE NEGATIVE (NEGATIVE); LEUKOCYTE ESTERASE ,URINE NEGATIVE (NEGATIVE); NITRATE,URINE NEGATIVE (NEGATIVE); OCCULT BLOOD,URINE NEGATIVE (NEGATIVE); PH,URINE 7.5 (5.0-8.0); PROTEIN,URINE NEGATIVE (NEGATIVE); UROBILINOGEN,URINE 0.2 mg/dL (<=1.0)
[2019-06-04 09:07] LABS: AMPHET/METH SCREEN,URINE NEGATIVE (NEGATIVE); BARBITURATE SCREEN, URINE NEGATIVE (NEGATIVE); BENZODIAZEPINES SCREEN,URINE NEGATIVE (NEGATIVE); CANNABINOID SCREEN,URINE NEGATIVE (NEGATIVE); COCAINE SCREEN,URINE NEGATIVE (NEGATIVE); METHADONE SCREEN, URINE NEGATIVE (NEGATIVE); OPIATE SCREEN,URINE NEGATIVE (NEGATIVE)
[2019-06-04 09:31] LABS: PHENCYCLIDINE SCREEN,URINE NEGATIVE (NEGATIVE)
== END 2019-06-04 11:00 | disposition home or self-care (01) | DRG 750 ==
LOC: B2S 20:47
PROVIDERS: ADMIT Psychiatry & Neurology Psychiatry; ATTEND Psychiatry & Neurology Child & Adolescent Psychiatry
DX: F25.9 Schizoaffective disorder, unspecified (principal); R45.851 Suicidal ideations; D64.9 Anemia, unspecified; J44.9 Chronic obstructive pulmonary disease, unspecified; K21.9 Gastro-esophageal reflux disease without esophagitis; Z91.5 Personal history of self-harm; F41.9 Anxiety disorder, unspecified
CPT/HCPCS: 80307; 84439; 84443

== ENCOUNTER 2019-08-14 11:48 | Inpatient (IN) | payer MEDICAID ==
[~2019-08-14] VITALS: Ht 177.8 cm; Wt 69.8 kg
[2019-08-14] MEDS ORDERED: HALOPERIDOL 5 MG TABLET PO PRN (16:30)
[2019-08-14] MEDS ORDERED: ZOLPIDEM TARTRATE 10 MG TABLET PO PRN (16:30)
[2019-08-14 16:58] VITALS: BP 116/79
[2019-08-15 06:05] VITALS: BP 122/76
[2019-08-15 08:29] VITALS: BP 102/61
[2019-08-15 08:45] LABS: BASOPHILS % (AUTO) 0.6 % (0.0-2.0); EOSINOPHILS % (AUTO) 4.4 % (1.0-6.0); HEMATOCRIT 43.2 % (41-53); HEMOGLOBIN 14.2 g/dL (13.5-17.5); LYMPHOCYTES # (AUTO) 1.6 K/uL (1.0-4.8); MEAN CORPUSCULAR HEMOGLOBIN 29.7 pg (26.0-34.0); MEAN CORPUSCULAR HGB CONC 32.9 G/dL (31.0-37.0); MEAN CORPUSCULAR VOLUME 90 fL (80-100); MONOCYTES # (AUTO) 0.6 K/uL (0.1-1.0); MONOCYTES % (AUTO) 9.7 % (2.0-9.0); NEUTROPHILS # (AUTO) 3.5 K/uL (1.8-7.7); NEUTROPHILS % (AUTO) 59.3 % (40.0-70.0); PLATELET COUNT (AUTO) 204 K/uL (150-450); RED BLOOD CELL COUNT(AUTO) 4.79 MIL/uL (4.50-5.90); RED CELL DISTRIBUTION WIDTH 13.5 % (11.5-14.5)
[2019-08-15 09:22] LABS: ALANINE AMINOTRANSFERASE 18 U/L (12-78); ALBUMIN 3.4 g/dL (3.4-5.0); ALKALINE PHOSPHATASE 68 U/L (46-116); ANION GAP 9 mmol/L (8-16); ASPARTATE AMINOTRANSFERASE 16 U/L (15-37); BILIRUBIN,TOTAL 0.4 mg/dL (0.1-1.0); CALCIUM, TOTAL 8.9 mg/dL (8.8-10.5); CARBON DIOXIDE 29 mmol/L (22-29); CHLORIDE 103 mmol/L (98-107); CHOL/HDL RATIO 2.7 (4.2-7.3); CHOLESTEROL 144 mg/dL (131-200); CREATININE 0.92 mg/dL (0.60-1.30); FREE T4 (FREE THYROXINE) 0.97 ng/dL (0.76-1.46); GLOMERULAR FILTR. RATE CALC > 60 mL/min (>60); GLUCOSE,RANDOM 93 mg/dL (70-110); HDL CHOLESTEROL 53 mg/dL (40-60); LDL CHOL (CALC.) 81 mg/dL (0-130); POTASSIUM 4.3 mmol/L (3.5-5.1); SODIUM SERUM 141 mmol/L (136-145); THYROID STIMULATING HORMONE 0.47 uIU/mL (0.36-3.74); TRIGLYCERIDES 52 mg/dL (15-150); UREA NITROGEN, BLOOD 14 mg/dL (7-18)
[2019-08-15] MEDS ORDERED: NICOTINE 14 MG/24 HOUR PATCH TD PRN (11:15)
[2019-08-15] MEDS ORDERED: GuaiFENesin/D-METHORPHAN [SUGAR-FREE] 200-20MG/10 ML SYRUP UDCUP PO PRN (11:15)
[2019-08-15] MEDS ORDERED: PETROLATUM,WHITE 28 GM JELLY TP PRN (11:15)
[2019-08-15] MEDS ORDERED: LOPERAMIDE HCL 2 MG CAPSULE PO PRN (11:15)
[2019-08-15] MEDS ORDERED: ACETAMINOPHEN 325 MG TABLET PO PRN (11:15)
[2019-08-15] MEDS ORDERED: IBUPROFEN 400 MG TABLET PO PRN (11:15)
[2019-08-15] MEDS ORDERED: ONDANSETRON HCL 4 MG TABLET PO PRN (11:15)
[2019-08-15] MEDS ORDERED: CloNIDine HCL 0.1 MG TABLET PO PRN (11:15)
[2019-08-15] MEDS ORDERED: MAG HYDROX/AL HYDROX/SIMETH ES 30 ML SUSPENSION UDCUP PO PRN (11:15)
[2019-08-15] MEDS ORDERED: ALBUTEROL SULFATE HFA 90 MCG/PUFF 8 GM INHALER IH PRN (11:15)
[2019-08-15] MEDS ORDERED: DOCUSATE SODIUM 100 MG CAPSULE PO PRN (11:15)
[2019-08-15] MEDS ORDERED: MAGNESIUM HYDROXIDE SUSPENSION 30 ML UDCUP PO PRN (11:15)
[2019-08-15] MEDS: RisperiDONE 3 MG TABLET PO SCH ×2 (12:22→21:00)
[2019-08-15] MEDS: FLUoxetine HCL 20 MG CAPSULE PO SCH (12:22)
[2019-08-15 12:43] LABS: HEMOGLOBIN A1C 5.5 % (3.8-5.6)
[2019-08-15 16:13] VITALS: BP 111/69
[2019-08-16 05:11] VITALS: BP 128/66
[2019-08-16] MEDS: FLUoxetine HCL 20 MG CAPSULE PO SCH ×2 (09:00→09:28)
[2019-08-16 09:07] VITALS: BP 120/90
[2019-08-16] MEDS: RisperiDONE 3 MG TABLET PO SCH ×2 (09:28→20:15)
[2019-08-16 20:30] VITALS: BP 117/81
[2019-08-17 05:25] VITALS: BP 118/67
[2019-08-17] MEDS: FLUoxetine HCL 20 MG CAPSULE PO SCH (09:00)
[2019-08-17] MEDS: RisperiDONE 3 MG TABLET PO SCH ×2 (09:40→20:50)
[2019-08-17 16:30] VITALS: BP 119/73
[2019-08-17] MEDS: LORazepam 2 MG TABLET PO PRN (16:32)
[2019-08-18 05:08] VITALS: BP 98/58
[2019-08-18 08:52] VITALS: BP 112/82
[2019-08-18] MEDS: RisperiDONE 3 MG TABLET PO SCH ×2 (08:54→21:01)
[2019-08-18] MEDS: FLUoxetine HCL 20 MG CAPSULE PO SCH (08:58)
[2019-08-18 16:19] VITALS: BP 109/75
[2019-08-18] MEDS: LORazepam 2 MG TABLET PO PRN (16:28)
[2019-08-19 05:30] VITALS: BP 110/70
[2019-08-19 08:30] VITALS: BP 110/70
[2019-08-19] MEDS: RisperiDONE 3 MG TABLET PO SCH ×2 (08:44→20:23)
[2019-08-19] MEDS: FLUoxetine HCL 20 MG CAPSULE PO SCH (08:48)
[2019-08-19] MEDS: LORazepam 2 MG TABLET PO PRN (16:09)
[2019-08-19 16:10] VITALS: BP 110/72
[2019-08-20 01:00] VITALS: BP 109/73
[2019-08-20] MEDS: RisperiDONE 3 MG TABLET PO SCH ×2 (08:18→20:18)
[2019-08-20] MEDS: FLUoxetine HCL 20 MG CAPSULE PO SCH (08:21)
[2019-08-20 08:38] VITALS: BP 97/61
[2019-08-20 14:02] VITALS: BP 102/66
[2019-08-20] MEDS: LORazepam 2 MG TABLET PO PRN (16:03)
[2019-08-20 16:08] VITALS: BP 129/67
[2019-08-21] MEDS: RisperiDONE 3 MG TABLET PO SCH (08:15)
[2019-08-21] MEDS: FLUoxetine HCL 20 MG CAPSULE PO SCH (08:15)
[2019-08-21 08:25] VITALS: BP 115/74
== END 2019-08-21 15:08 | disposition home or self-care (01) | DRG 750 ==
LOC: B2S 16:20
DX: F25.9 Schizoaffective disorder, unspecified (principal); F10.10 Alcohol abuse, uncomplicated; J44.9 Chronic obstructive pulmonary disease, unspecified; K21.9 Gastro-esophageal reflux disease without esophagitis; Z91.5 Personal history of self-harm; Z79.899 Other long term (current) drug therapy
CPT/HCPCS: 83036; 84436; 84439; 84443; J3535

== ENCOUNTER 2019-08-28 21:57 | Inpatient (IN) | payer MEDICAID ==
[~2019-08-28] VITALS: Ht 177.8 cm; Wt 68.6 kg
[~2019-08-28 21:57] MED LIST changes: -RISP3 PO; +RISP3TAB14 PO
[2019-08-28 23:06] VITALS: BP 128/95
[2019-08-28] MEDS ORDERED: HALOPERIDOL 5 MG TABLET PO PRN (23:15)
[2019-08-28] MEDS ORDERED: ZOLPIDEM TARTRATE 10 MG TABLET PO PRN (23:15)
[2019-08-29] MEDS ORDERED: PNEUMOCOCCAL VACCINE POLYVALENT 0.5 ML VIAL [PPSV23] IM ONE (00:30)
[2019-08-29 00:47] VITALS: BP 122/64
[2019-08-29] MEDS ORDERED: ACETAMINOPHEN 325 MG TABLET PO PRN (08:30)
[2019-08-29] MEDS ORDERED: NICOTINE 14 MG/24 HOUR PATCH TD PRN (08:30)
[2019-08-29] MEDS ORDERED: MAG HYDROX/AL HYDROX/SIMETH ES 30 ML SUSPENSION UDCUP PO PRN (08:30)
[2019-08-29] MEDS ORDERED: IBUPROFEN 400 MG TABLET PO PRN (08:30)
[2019-08-29] MEDS ORDERED: CloNIDine HCL 0.1 MG TABLET PO PRN (08:30)
[2019-08-29] MEDS ORDERED: MAGNESIUM HYDROXIDE SUSPENSION 30 ML UDCUP PO PRN (08:30)
[2019-08-29] MEDS ORDERED: LOPERAMIDE HCL 2 MG CAPSULE PO PRN (08:30)
[2019-08-29] MEDS ORDERED: ONDANSETRON HCL 4 MG TABLET PO PRN (08:30)
[2019-08-29] MEDS ORDERED: GuaiFENesin/D-METHORPHAN [SUGAR-FREE] 200-20MG/10 ML SYRUP UDCUP PO PRN (08:30)
[2019-08-29] MEDS ORDERED: DOCUSATE SODIUM 100 MG CAPSULE PO PRN (08:30)
[2019-08-29] MEDS ORDERED: PETROLATUM,WHITE 28 GM JELLY TP PRN (08:30)
[2019-08-29 08:49] VITALS: BP 118/67
[2019-08-29] MEDS: FLUoxetine HCL 20 MG CAPSULE PO SCH (11:15)
[2019-08-29] MEDS: LORazepam 2 MG TABLET PO PRN (16:51)
[2019-08-29] MEDS: ALBUTEROL SULFATE HFA 90 MCG/PUFF 8 GM INHALER IH PRN (16:51)
[2019-08-29 17:16] VITALS: BP 124/49
[2019-08-29] MEDS: RisperiDONE 3 MG TABLET PO SCH (21:00)
[2019-08-30 00:37] VITALS: BP 105/65
[2019-08-30] MEDS: RisperiDONE 3 MG TABLET PO SCH ×2 (08:23→20:28)
[2019-08-30] MEDS: FLUoxetine HCL 20 MG CAPSULE PO SCH (08:23)
[2019-08-30 16:38] VITALS: BP 99/60
[2019-08-30] MEDS: LORazepam 2 MG TABLET PO PRN (20:33)
[2019-08-31 06:11] VITALS: BP 102/64
[2019-08-31 08:23] VITALS: BP 113/75
[2019-08-31] MEDS: FLUoxetine HCL 20 MG CAPSULE PO SCH (08:52)
[2019-08-31] MEDS: RisperiDONE 3 MG TABLET PO SCH ×2 (08:52→20:21)
[2019-08-31] MEDS: ALBUTEROL SULFATE HFA 90 MCG/PUFF 8 GM INHALER IH PRN (15:06)
[2019-08-31 16:25] VITALS: BP 109/68
[2019-09-01 00:45] VITALS: BP 110/67
[2019-09-01 08:58] VITALS: BP 112/59
[2019-09-01] MEDS: FLUoxetine HCL 20 MG CAPSULE PO SCH (09:17)
[2019-09-01] MEDS: RisperiDONE 3 MG TABLET PO SCH ×2 (09:17→20:45)
[2019-09-01 16:30] VITALS: BP 121/66
[2019-09-01] MEDS: ALBUTEROL SULFATE HFA 90 MCG/PUFF 8 GM INHALER IH PRN (17:10)
[2019-09-02 09:10] VITALS: BP 102/67
[2019-09-02] MEDS: FLUoxetine HCL 20 MG CAPSULE PO SCH (09:24)
[2019-09-02] MEDS: RisperiDONE 3 MG TABLET PO SCH ×2 (09:24→20:43)
[2019-09-02 14:48] VITALS: BP 127/60
[2019-09-02 16:06] VITALS: BP 107/75
[2019-09-02] MEDS: ALBUTEROL SULFATE HFA 90 MCG/PUFF 8 GM INHALER IH PRN (16:22)
[2019-09-03 06:49] VITALS: BP 116/64
[2019-09-03 08:10] VITALS: BP 115/60
[2019-09-03] MEDS: FLUoxetine HCL 20 MG CAPSULE PO SCH (08:11)
[2019-09-03] MEDS: RisperiDONE 3 MG TABLET PO SCH ×2 (08:11→20:15)
[2019-09-03] MEDS: LORazepam 2 MG TABLET PO PRN (13:34)
[2019-09-03] MEDS: ALBUTEROL SULFATE HFA 90 MCG/PUFF 8 GM INHALER IH PRN ×2 (13:35→20:16)
[2019-09-03 16:00] VITALS: BP 101/78
[2019-09-04 04:23] VITALS: BP 102/67
[2019-09-04 08:17] VITALS: BP 97/55
[2019-09-04] MEDS: RisperiDONE 3 MG TABLET PO SCH ×2 (08:40→20:04)
[2019-09-04] MEDS: FLUoxetine HCL 20 MG CAPSULE PO SCH (08:40)
[2019-09-04] MEDS: ALBUTEROL SULFATE HFA 90 MCG/PUFF 8 GM INHALER IH PRN ×2 (08:41→16:02)
[2019-09-04] MEDS: LORazepam 2 MG TABLET PO PRN (16:01)
[2019-09-04 16:19] VITALS: BP 126/74
[2019-09-05 05:01] VITALS: BP 124/72
[2019-09-05] MEDS: ALBUTEROL SULFATE HFA 90 MCG/PUFF 8 GM INHALER IH PRN ×2 (06:23→14:41)
[2019-09-05] MEDS: FLUoxetine HCL 20 MG CAPSULE PO SCH (08:34)
[2019-09-05] MEDS: RisperiDONE 3 MG TABLET PO SCH ×2 (08:34→20:11)
[2019-09-05 16:09] VITALS: BP 120/68
[2019-09-05] MEDS: LORazepam 2 MG TABLET PO PRN (18:09)
[2019-09-06 05:31] VITALS: BP 105/73
[2019-09-06] MEDS: ALBUTEROL SULFATE HFA 90 MCG/PUFF 8 GM INHALER IH PRN ×3 (05:55→20:03)
[2019-09-06] MEDS: RisperiDONE 3 MG TABLET PO SCH ×2 (08:21→20:01)
[2019-09-06] MEDS: FLUoxetine HCL 20 MG CAPSULE PO SCH (08:21)
[2019-09-06 09:26] VITALS: BP 121/72
[2019-09-06] MEDS: LORazepam 2 MG TABLET PO PRN (13:24)
[2019-09-06 16:21] VITALS: BP 124/82
[2019-09-07 01:18] VITALS: BP 125/80
[2019-09-07] MEDS: ALBUTEROL SULFATE HFA 90 MCG/PUFF 8 GM INHALER IH PRN ×2 (03:12→17:18)
[2019-09-07] MEDS: LORazepam 2 MG TABLET PO PRN ×3 (03:15→18:18)
[2019-09-07 07:44] LABS: BASOPHILS % (AUTO) 0.5 % (0.0-2.0); EOSINOPHILS % (AUTO) 6.2 % (1.0-6.0); HEMOGLOBIN 14.4 g/dL (13.5-17.5); LYMPHOCYTES # (AUTO) 1.8 K/uL (1.0-4.8); LYMPHOCYTES % (AUTO) 29.9 % (22.0-44.0); MEAN CORPUSCULAR HEMOGLOBIN 30.3 pg (26.0-34.0); MEAN CORPUSCULAR HGB CONC 33.4 G/dL (31.0-37.0); MEAN CORPUSCULAR VOLUME 91 fL (80-100); MONOCYTES # (AUTO) 0.6 K/uL (0.1-1.0); MONOCYTES % (AUTO) 10.1 % (2.0-9.0); NEUTROPHILS # (AUTO) 3.1 K/uL (1.8-7.7); NEUTROPHILS % (AUTO) 53.3 % (40.0-70.0); PLATELET COUNT (AUTO) 227 K/uL (150-450); RED BLOOD CELL COUNT(AUTO) 4.75 MIL/uL (4.50-5.90); RED CELL DISTRIBUTION WIDTH 13.9 % (11.5-14.5)
[2019-09-07 07:54] LABS: ALANINE AMINOTRANSFERASE 20 U/L (12-78); ALBUMIN 3.8 g/dL (3.4-5.0); ALKALINE PHOSPHATASE 68 U/L (46-116); ANION GAP 9 mmol/L (8-16); ASPARTATE AMINOTRANSFERASE 13 U/L (15-37); BILIRUBIN,TOTAL 0.4 mg/dL (0.1-1.0); CALCIUM, TOTAL 9.1 mg/dL (8.8-10.5); CARBON DIOXIDE 26 mmol/L (22-29); CHLORIDE 103 mmol/L (98-107); CHOLESTEROL 160 mg/dL (131-200); CREATININE 0.78 mg/dL (0.60-1.30); GLOMERULAR FILTR. RATE CALC > 60 mL/min (>60); GLUCOSE,RANDOM 98 mg/dL (70-110); HDL CHOLESTEROL 53 mg/dL (40-60); LDL CHOL (CALC.) 80 mg/dL (0-130); POTASSIUM 4.2 mmol/L (3.5-5.1); SODIUM SERUM 138 mmol/L (136-145); TOTAL PROTEIN, SERUM 7.6 g/dL (6.4-8.2); TRIGLYCERIDES 137 mg/dL (15-150); UREA NITROGEN, BLOOD 14 mg/dL (7-18)
[2019-09-07 08:31] VITALS: BP 125/82
[2019-09-07 08:45] LABS: HEMOGLOBIN A1C 5.7 % (3.8-5.6)
[2019-09-07] MEDS: RisperiDONE 3 MG TABLET PO SCH ×2 (08:54→20:45)
[2019-09-07] MEDS: FLUoxetine HCL 20 MG CAPSULE PO SCH (08:54)
[2019-09-07 12:00] VITALS: BP 121/70
[2019-09-07 16:16] VITALS: BP 102/65
[2019-09-08 04:30] VITALS: BP 110/78
[2019-09-08 08:37] VITALS: BP 114/66
[2019-09-08] MEDS: FLUoxetine HCL 20 MG CAPSULE PO SCH (09:14)
[2019-09-08] MEDS: RisperiDONE 3 MG TABLET PO SCH (09:14)
[2019-09-08] MEDS: ALBUTEROL SULFATE HFA 90 MCG/PUFF 8 GM INHALER IH PRN (09:17)
== END 2019-09-08 10:20 | DRG 750 ==
LOC: B2S 08-29 00:17
PROVIDERS: ADMIT Psychiatry & Neurology Child & Adolescent Psychiatry; ATTEND Psychiatry & Neurology Child & Adolescent Psychiatry
DX: F20.0 Paranoid schizophrenia (principal); Z59.0 Homelessness; F10.10 Alcohol abuse, uncomplicated; Z71.41 Alcohol abuse counseling and surveillance of alcoholic; J45.909 Unspecified asthma, uncomplicated; K21.9 Gastro-esophageal reflux disease without esophagitis; Z91.19 Patient's noncompliance with other medical treatment and regimen; Z79.899 Other long term (current) drug therapy
CPT/HCPCS: 83036; 86592; 87081; J3535

== ENCOUNTER 2019-11-10 22:42 | Inpatient (IN) | payer MEDICAID ==
[~2019-11-10] VITALS: Ht 177.8 cm; Wt 71.9 kg
[2019-11-10] MEDS ORDERED: HALOPERIDOL 5 MG TABLET PO PRN (23:00)
[2019-11-10] MEDS ORDERED: ZOLPIDEM TARTRATE 10 MG TABLET PO PRN (23:00)
[2019-11-10 23:12] VITALS: BP 106/68
[2019-11-11 00:07] VITALS: BP 121/76
[2019-11-11] MEDS ORDERED: PNEUMOCOCCAL VACCINE POLYVALENT 0.5 ML VIAL [PPSV23] IM ONE (00:30)
[2019-11-11] MEDS ORDERED: ALBUTEROL SULFATE HFA 90 MCG/PUFF 8 GM INHALER IH PRN (05:15)
[2019-11-11] MEDS ORDERED: DOCUSATE SODIUM 100 MG CAPSULE PO PRN (07:15)
[2019-11-11] MEDS ORDERED: GuaiFENesin/D-METHORPHAN [SUGAR-FREE] 200-20MG/10 ML SYRUP UDCUP PO PRN (07:15)
[2019-11-11] MEDS ORDERED: LOPERAMIDE HCL 2 MG CAPSULE PO PRN (07:15)
[2019-11-11] MEDS ORDERED: NICOTINE 14 MG/24 HOUR PATCH TD PRN (07:15)
[2019-11-11] MEDS ORDERED: ONDANSETRON HCL 4 MG TABLET PO PRN (07:15)
[2019-11-11] MEDS ORDERED: IBUPROFEN 400 MG TABLET PO PRN (07:15)
[2019-11-11] MEDS ORDERED: PETROLATUM,WHITE 28 GM JELLY TP PRN (07:15)
[2019-11-11] MEDS ORDERED: MAGNESIUM HYDROXIDE SUSPENSION 30 ML UDCUP PO PRN (07:15)
[2019-11-11] MEDS ORDERED: ACETAMINOPHEN 325 MG TABLET PO PRN (07:15)
[2019-11-11] MEDS ORDERED: MAG HYDROX/AL HYDROX/SIMETH ES 30 ML SUSPENSION UDCUP PO PRN (07:15)
[2019-11-11] MEDS ORDERED: CloNIDine HCL 0.1 MG TABLET PO PRN (07:15)
[2019-11-11 07:47] LABS: APPEARANCE,URINE CLEAR (CLEAR); BILIRUBIN,URINE NEGATIVE (NEGATIVE); GLUCOSE, URINE (UA) NEGATIVE (NEGATIVE); KETONES,URINE NEGATIVE (NEGATIVE); LEUKOCYTE ESTERASE ,URINE NEGATIVE (NEGATIVE); NITRATE,URINE NEGATIVE (NEGATIVE); OCCULT BLOOD,URINE NEGATIVE (NEGATIVE); PROTEIN,URINE NEGATIVE (NEGATIVE); UROBILINOGEN,URINE 0.2 mg/dL (<=1.0)
[2019-11-11 07:53] LABS: AMPHET/METH SCREEN,URINE NEGATIVE (NEGATIVE); BARBITURATE SCREEN, URINE NEGATIVE (NEGATIVE); BENZODIAZEPINES SCREEN,URINE NEGATIVE (NEGATIVE); CANNABINOID SCREEN,URINE NEGATIVE (NEGATIVE); COCAINE SCREEN,URINE NEGATIVE (NEGATIVE); METHADONE SCREEN, URINE NEGATIVE (NEGATIVE); OPIATE SCREEN,URINE NEGATIVE (NEGATIVE)
[2019-11-11 07:56] LABS: PHENCYCLIDINE SCREEN,URINE NEGATIVE (NEGATIVE)
[2019-11-11 07:57] LABS: HEMOGLOBIN A1C 5.2 % (3.8-5.6)
[2019-11-11 07:59] LABS: BASOPHILS % (AUTO) 0.5 % (0.0-2.0); EOSINOPHILS % (AUTO) 3.7 % (1.0-6.0); HEMATOCRIT 40.8 % (41-53); HEMOGLOBIN 13.8 g/dL (13.5-17.5); LYMPHOCYTES # (AUTO) 2.1 K/uL (1.0-4.8); LYMPHOCYTES % (AUTO) 27.3 % (22.0-44.0); MEAN CORPUSCULAR HEMOGLOBIN 30.9 pg (26.0-34.0); MEAN CORPUSCULAR HGB CONC 33.9 G/dL (31.0-37.0); MEAN CORPUSCULAR VOLUME 91 fL (80-100); MONOCYTES # (AUTO) 0.7 K/uL (0.1-1.0); MONOCYTES % (AUTO) 9.5 % (2.0-9.0); NEUTROPHILS # (AUTO) 4.6 K/uL (1.8-7.7); PLATELET COUNT (AUTO) 186 K/uL (150-450); RED BLOOD CELL COUNT(AUTO) 4.47 MIL/uL (4.50-5.90)
[2019-11-11 08:05] VITALS: BP 102/63
[2019-11-11 08:16] LABS: ALANINE AMINOTRANSFERASE 14 U/L (12-78); ALBUMIN 3.5 g/dL (3.4-5.0); ALKALINE PHOSPHATASE 75 U/L (46-116); ANION GAP 5 mmol/L (8-16); ASPARTATE AMINOTRANSFERASE 12 U/L (15-37); BILIRUBIN,TOTAL 0.2 mg/dL (0.1-1.0); CARBON DIOXIDE 29 mmol/L (22-29); CHLORIDE 105 mmol/L (98-107); CHOL/HDL RATIO 3.2 (4.2-7.3); CHOLESTEROL 143 mg/dL (131-200); CREATININE 1.13 mg/dL (0.60-1.30); FREE T4 (FREE THYROXINE) 1.35 ng/dL (0.76-1.46); GLOMERULAR FILTR. RATE CALC > 60 mL/min (>60); GLUCOSE,RANDOM 101 mg/dL (70-110); HDL CHOLESTEROL 45 mg/dL (40-60); LDL CHOL (CALC.) 76 mg/dL (0-130); POTASSIUM 4.6 mmol/L (3.5-5.1); SODIUM SERUM 139 mmol/L (136-145); THYROID STIMULATING HORMONE 0.76 uIU/mL (0.36-3.74); TOTAL PROTEIN, SERUM 6.6 g/dL (6.4-8.2); TRIGLYCERIDES 112 mg/dL (15-150); UREA NITROGEN, BLOOD 16 mg/dL (7-18)
[2019-11-11] MEDS: FLUoxetine HCL 20 MG CAPSULE PO SCH (08:29)
[2019-11-11] MEDS: RisperiDONE 3 MG TABLET PO SCH ×2 (08:29→20:08)
[2019-11-11] MEDS: ALBUTEROL SULFATE HFA 90 MCG/PUFF 8 GM INHALER IH PRN (08:38)
[2019-11-11 16:14] VITALS: BP 102/60
[2019-11-12 05:30] VITALS: BP 100/70
[2019-11-12] MEDS: RisperiDONE 3 MG TABLET PO SCH ×2 (08:14→20:17)
[2019-11-12] MEDS: FLUoxetine HCL 20 MG CAPSULE PO SCH (08:14)
[2019-11-12] MEDS: LORazepam 2 MG TABLET PO PRN ×2 (08:16→17:58)
[2019-11-12] MEDS: ALBUTEROL SULFATE HFA 90 MCG/PUFF 8 GM INHALER IH PRN (08:17)
[2019-11-12 08:55] VITALS: BP 107/65
[2019-11-12 16:27] VITALS: BP 108/70
[2019-11-13 06:09] VITALS: BP 128/84
[2019-11-13] MEDS ORDERED: FLUO-191 PO (07:08)
[2019-11-13] MEDS ORDERED: RISP3TAB14 PO (07:08)
[2019-11-13] MEDS: FLUoxetine HCL 20 MG CAPSULE PO SCH (08:08)
[2019-11-13] MEDS: RisperiDONE 3 MG TABLET PO SCH (08:08)
[2019-11-13] MEDS: ALBUTEROL SULFATE HFA 90 MCG/PUFF 8 GM INHALER IH PRN (08:10)
[2019-11-13 08:46] VITALS: BP 123/60
== END 2019-11-13 08:55 | disposition home or self-care (01) | DRG 885 ==
LOC: B2S 22:55
PROVIDERS: ADMIT Psychiatry & Neurology Child & Adolescent Psychiatry; ATTEND Psychiatry & Neurology Child & Adolescent Psychiatry
DX: F25.9 Schizoaffective disorder, unspecified (principal); R45.851 Suicidal ideations; D64.9 Anemia, unspecified; F10.10 Alcohol abuse, uncomplicated; J44.9 Chronic obstructive pulmonary disease, unspecified; K21.9 Gastro-esophageal reflux disease without esophagitis; Z79.899 Other long term (current) drug therapy; Z28.21 Immunization not carried out because of patient refusal
CPT/HCPCS: 80307; 83036; 84439; 84443; J3535

== ENCOUNTER 2019-11-25 19:53 | Inpatient (IN) | payer MEDICAID ==
[~2019-11-25] VITALS: Ht 177.8 cm; Wt 72.6 kg
[2019-11-25] MEDS ORDERED: HALOPERIDOL 5 MG TABLET PO PRN (20:30)
[2019-11-25] MEDS ORDERED: ZOLPIDEM TARTRATE 10 MG TABLET PO PRN (20:30)
[2019-11-25 20:39] VITALS: BP 114/71
[2019-11-25 21:21] VITALS: BP 114/71
[2019-11-25] MEDS: LORazepam 2 MG TABLET PO PRN (21:22)
[2019-11-25] MEDS ORDERED: DOCUSATE SODIUM 100 MG CAPSULE PO PRN (22:00)
[2019-11-25] MEDS ORDERED: LOPERAMIDE HCL 2 MG CAPSULE PO PRN (22:00)
[2019-11-25] MEDS ORDERED: CloNIDine HCL 0.1 MG TABLET PO PRN (22:00)
[2019-11-25] MEDS ORDERED: MAG HYDROX/AL HYDROX/SIMETH ES 30 ML SUSPENSION UDCUP PO PRN (22:00)
[2019-11-25] MEDS ORDERED: MAGNESIUM HYDROXIDE SUSPENSION 30 ML UDCUP PO PRN (22:00)
[2019-11-25] MEDS ORDERED: ACETAMINOPHEN 325 MG TABLET PO PRN (22:00)
[2019-11-25] MEDS ORDERED: PETROLATUM,WHITE 28 GM JELLY TP PRN (22:00)
[2019-11-25] MEDS ORDERED: ALBUTEROL SULFATE HFA 90 MCG/PUFF 8 GM INHALER IH PRN (22:00)
[2019-11-25] MEDS ORDERED: IBUPROFEN 400 MG TABLET PO PRN (22:00)
[2019-11-25] MEDS ORDERED: NICOTINE 14 MG/24 HOUR PATCH TD PRN (22:00)
[2019-11-25] MEDS ORDERED: GuaiFENesin/D-METHORPHAN [SUGAR-FREE] 200-20MG/10 ML SYRUP UDCUP PO PRN (22:00)
[2019-11-25] MEDS ORDERED: ONDANSETRON HCL 4 MG TABLET PO PRN (22:00)
[2019-11-26 01:37] VITALS: BP 118/72
[2019-11-26] MEDS ORDERED: PETROLATUM,WHITE 28 GM JELLY TP PRN (08:00)
[2019-11-26] MEDS ORDERED: DOCUSATE SODIUM 100 MG CAPSULE PO PRN (08:00)
[2019-11-26] MEDS ORDERED: MAG HYDROX/AL HYDROX/SIMETH ES 30 ML SUSPENSION UDCUP PO PRN (08:00)
[2019-11-26] MEDS ORDERED: MAGNESIUM HYDROXIDE SUSPENSION 30 ML UDCUP PO PRN (08:00)
[2019-11-26] MEDS ORDERED: ONDANSETRON HCL 4 MG TABLET PO PRN (08:00)
[2019-11-26] MEDS ORDERED: IBUPROFEN 400 MG TABLET PO PRN (08:00)
[2019-11-26] MEDS ORDERED: CloNIDine HCL 0.1 MG TABLET PO PRN (08:00)
[2019-11-26] MEDS ORDERED: ACETAMINOPHEN 325 MG TABLET PO PRN (08:00)
[2019-11-26] MEDS ORDERED: NICOTINE 14 MG/24 HOUR PATCH TD PRN (08:00)
[2019-11-26] MEDS ORDERED: LOPERAMIDE HCL 2 MG CAPSULE PO PRN (08:00)
[2019-11-26] MEDS ORDERED: GuaiFENesin/D-METHORPHAN [SUGAR-FREE] 200-20MG/10 ML SYRUP UDCUP PO PRN (08:00)
[2019-11-26 08:28] VITALS: BP 127/86
[2019-11-26 08:28] LABS: HEMOGLOBIN A1C 5.1 % (3.8-5.6)
[2019-11-26 08:30] LABS: BASOPHILS % (AUTO) 0.4 % (0.0-2.0); EOSINOPHILS % (AUTO) 4.5 % (1.0-6.0); HEMATOCRIT 40.3 % (41-53); HEMOGLOBIN 13.5 g/dL (13.5-17.5); LYMPHOCYTES # (AUTO) 1.8 K/uL (1.0-4.8); LYMPHOCYTES % (AUTO) 26.3 % (22.0-44.0); MEAN CORPUSCULAR HEMOGLOBIN 30.9 pg (26.0-34.0); MEAN CORPUSCULAR HGB CONC 33.6 G/dL (31.0-37.0); MEAN CORPUSCULAR VOLUME 92 fL (80-100); MONOCYTES # (AUTO) 0.6 K/uL (0.1-1.0); MONOCYTES % (AUTO) 9.3 % (2.0-9.0); NEUTROPHILS # (AUTO) 4.1 K/uL (1.8-7.7); NEUTROPHILS % (AUTO) 59.5 % (40.0-70.0); PLATELET COUNT (AUTO) 174 K/uL (150-450); RED BLOOD CELL COUNT(AUTO) 4.38 MIL/uL (4.50-5.90)
[2019-11-26 08:43] LABS: ALANINE AMINOTRANSFERASE 18 U/L (12-78); ALBUMIN 3.4 g/dL (3.4-5.0); ALKALINE PHOSPHATASE 66 U/L (46-116); ANION GAP 6 mmol/L (8-16); ASPARTATE AMINOTRANSFERASE 14 U/L (15-37); BILIRUBIN,TOTAL 0.2 mg/dL (0.1-1.0); CALCIUM, TOTAL 8.9 mg/dL (8.8-10.5); CARBON DIOXIDE 29 mmol/L (22-29); CHLORIDE 105 mmol/L (98-107); CHOLESTEROL 139 mg/dL (131-200); CREATININE 0.91 mg/dL (0.60-1.30); GLOMERULAR FILTR. RATE CALC > 60 mL/min (>60); GLUCOSE,RANDOM 89 mg/dL (70-110); HDL CHOLESTEROL 47 mg/dL (40-60); POTASSIUM 4.1 mmol/L (3.5-5.1); SODIUM SERUM 140 mmol/L (136-145); TOTAL PROTEIN, SERUM 6.2 g/dL (6.4-8.2); TRIGLYCERIDES 100 mg/dL (15-150); UREA NITROGEN, BLOOD 12 mg/dL (7-18)
[2019-11-26 08:44] LABS: FREE T4 (FREE THYROXINE) 0.96 ng/dL (0.76-1.46); LDL CHOL (CALC.) 72 mg/dL (0-130); THYROID STIMULATING HORMONE 0.82 uIU/mL (0.36-3.74)
[2019-11-26 09:06] LABS: BILIRUBIN,URINE NEGATIVE (NEGATIVE); GLUCOSE, URINE (UA) NEGATIVE (NEGATIVE); KETONES,URINE NEGATIVE (NEGATIVE); LEUKOCYTE ESTERASE ,URINE NEGATIVE (NEGATIVE); NITRATE,URINE NEGATIVE (NEGATIVE); OCCULT BLOOD,URINE NEGATIVE (NEGATIVE); PROTEIN,URINE NEGATIVE (NEGATIVE); UROBILINOGEN,URINE 0.2 mg/dL (<=1.0)
[2019-11-26 09:09] LABS: APPEARANCE,URINE CLEAR (CLEAR)
[2019-11-26] MEDS: LORazepam 2 MG TABLET PO PRN ×2 (09:10→14:24)
[2019-11-26 09:13] LABS: AMPHET/METH SCREEN,URINE NEGATIVE (NEGATIVE); BARBITURATE SCREEN, URINE NEGATIVE (NEGATIVE); BENZODIAZEPINES SCREEN,URINE NEGATIVE (NEGATIVE); CANNABINOID SCREEN,URINE NEGATIVE (NEGATIVE); COCAINE SCREEN,URINE NEGATIVE (NEGATIVE); METHADONE SCREEN, URINE NEGATIVE (NEGATIVE); OPIATE SCREEN,URINE NEGATIVE (NEGATIVE)
[2019-11-26 09:15] LABS: PHENCYCLIDINE SCREEN,URINE NEGATIVE (NEGATIVE)
[2019-11-26] MEDS: FLUoxetine HCL 20 MG CAPSULE PO SCH (14:23)
[2019-11-26] MEDS: RisperiDONE 3 MG TABLET PO SCH ×2 (14:24→21:29)
[2019-11-26] MEDS: ALBUTEROL SULFATE HFA 90 MCG/PUFF 8 GM INHALER IH PRN (14:25)
[2019-11-26 16:03] VITALS: BP 136/60
[2019-11-27 00:40] VITALS: BP 121/75
[2019-11-27] MEDS: RisperiDONE 3 MG TABLET PO SCH ×2 (08:00→20:51)
[2019-11-27] MEDS: FLUoxetine HCL 20 MG CAPSULE PO SCH (08:00)
[2019-11-27] MEDS: LORazepam 2 MG TABLET PO PRN ×2 (08:00→16:21)
[2019-11-27] MEDS: ALBUTEROL SULFATE HFA 90 MCG/PUFF 8 GM INHALER IH PRN ×2 (08:02→16:21)
[2019-11-27 08:06] VITALS: BP 109/67
[2019-11-27 16:11] VITALS: BP 107/68
[2019-11-28 00:04] VITALS: BP 108/65
[2019-11-28] MEDS: FLUoxetine HCL 20 MG CAPSULE PO SCH (08:05)
[2019-11-28] MEDS: RisperiDONE 3 MG TABLET PO SCH ×2 (08:05→20:11)
[2019-11-28 08:06] VITALS: BP 132/76
[2019-11-28] MEDS: ALBUTEROL SULFATE HFA 90 MCG/PUFF 8 GM INHALER IH PRN ×2 (08:07→15:41)
[2019-11-28 16:23] VITALS: BP 99/59
[2019-11-29 05:03] VITALS: BP 102/68
[2019-11-29 08:33] VITALS: BP 92/55
[2019-11-29] MEDS: RisperiDONE 3 MG TABLET PO SCH ×2 (08:34→20:22)
[2019-11-29] MEDS: FLUoxetine HCL 20 MG CAPSULE PO SCH (08:34)
[2019-11-29] MEDS: ALBUTEROL SULFATE HFA 90 MCG/PUFF 8 GM INHALER IH PRN (14:16)
[2019-11-29] MEDS: LORazepam 2 MG TABLET PO PRN (16:04)
[2019-11-29 16:11] VITALS: BP 116/79
[2019-11-30 05:37] VITALS: BP 117/71
[2019-11-30 08:20] VITALS: BP 113/75
[2019-11-30] MEDS: FLUoxetine HCL 20 MG CAPSULE PO SCH (08:32)
[2019-11-30] MEDS: ALBUTEROL SULFATE HFA 90 MCG/PUFF 8 GM INHALER IH PRN ×2 (08:33→15:12)
[2019-11-30] MEDS: RisperiDONE 3 MG TABLET PO SCH (08:34)
== END 2019-11-30 15:42 | disposition home or self-care (01) | DRG 750 ==
LOC: B2S 20:54
PROVIDERS: ADMIT Psychiatry & Neurology Child & Adolescent Psychiatry; ATTEND Psychiatry & Neurology Child & Adolescent Psychiatry
DX: F25.1 Schizoaffective disorder, depressive type (principal); D64.9 Anemia, unspecified; F10.10 Alcohol abuse, uncomplicated; J44.9 Chronic obstructive pulmonary disease, unspecified; F41.9 Anxiety disorder, unspecified; K21.9 Gastro-esophageal reflux disease without esophagitis; R45.851 Suicidal ideations; Z91.19 Patient's noncompliance with other medical treatment and regimen; Z79.899 Other long term (current) drug therapy; Z71.41 Alcohol abuse counseling and surveillance of alcoholic
CPT/HCPCS: 80307; 83036; 84439; 84443; 87081; J3535

== ENCOUNTER 2020-10-01 18:14 | Emergency (ER) | payer MEDICAID ==
[~2020-10-01] VITALS: Ht 177.8 cm; Wt 68.2 kg
[~2020-10-01 18:14] MED LIST changes: +BENZ1TAB10 PO; -RISP3TAB14 PO; +RISP3TAB35 PO
[2020-10-01 18:20] VITALS: BP 101/56
== END 2020-10-01 20:00 | disposition left against medical advice (07) ==
LOC: EMS 18:16
DX: R45.851 Suicidal ideations (principal); Z53.21 Procedure and treatment not carried out due to patient leaving prior to being seen by health care provider

== ENCOUNTER 2021-04-19 16:19 | Inpatient (IN) | payer MEDICAID ==
[~2021-04-19] VITALS: Ht 175.3 cm; Wt 62.6 kg
[2021-04-19 17:12] LABS: BASOPHILS % (AUTO) 0.6 % (0.0-2.0); HEMATOCRIT 37.5 % (41-53); HEMOGLOBIN 12.7 g/dL (13.5-17.5); LYMPHOCYTES # (AUTO) 1.5 K/uL (1.0-4.8); LYMPHOCYTES % (AUTO) 23.9 % (22.0-44.0); MEAN CORPUSCULAR HEMOGLOBIN 29.9 pg (26.0-34.0); MEAN CORPUSCULAR HGB CONC 33.9 G/dL (31.0-37.0); MEAN CORPUSCULAR VOLUME 88 fL (80-100); MONOCYTES # (AUTO) 0.5 K/uL (0.1-1.0); MONOCYTES % (AUTO) 8.8 % (2.0-9.0); NEUTROPHILS % (AUTO) 64.7 % (40.0-70.0); PLATELET COUNT (AUTO) 216 K/uL (150-450); RED BLOOD CELL COUNT(AUTO) 4.26 MIL/uL (4.50-5.90); RED CELL DISTRIBUTION WIDTH 14.1 % (11.5-14.5)
[2021-04-19 17:22] LABS: ANION GAP 8 mmol/L (8-16); CALCIUM, TOTAL 9.4 mg/dL (8.8-10.5); CARBON DIOXIDE 29 mmol/L (22-29); CHLORIDE 105 mmol/L (98-107); CREATININE 0.98 mg/dL (0.60-1.30); GLOMERULAR FILTR. RATE CALC > 60 mL/min (>60); GLUCOSE,RANDOM 91 mg/dL (70-110); POTASSIUM 3.3 mmol/L (3.5-5.1); SODIUM SERUM 142 mmol/L (136-145); UREA NITROGEN, BLOOD 16 mg/dL (7-18)
[2021-04-19 17:28] LABS: ALANINE AMINOTRANSFERASE 18 U/L (12-78); ALKALINE PHOSPHATASE 95 U/L (46-116); ASPARTATE AMINOTRANSFERASE 24 U/L (15-37); BILIRUBIN,TOTAL 0.6 mg/dL (0.1-1.0); TOTAL PROTEIN, SERUM 7.9 g/dL (6.4-8.2)
[2021-04-19 17:58] LABS: COVID AG,FIA SOURCE NASOPHARYNGEAL
[2021-04-19] MEDS ORDERED: HALOPERIDOL 5 MG TABLET PO PRN (18:15)
[2021-04-19] MEDS ORDERED: LORazepam 2 MG TABLET PO ONE (18:30)
[2021-04-19] MEDS ORDERED: HALOPERIDOL 5 MG TABLET PO ONE (18:30)
[2021-04-19] MEDS ORDERED: POTASSIUM CHLORIDE 10% 40 MEQ/30 ML LIQUID UDCUP PO ONE (18:30)
[2021-04-19] MEDS ORDERED: DiphenhydrAMINE HCL 25 MG CAPSULE PO ONE (18:30)
[2021-04-19] MEDS: ZOLPIDEM TARTRATE 10 MG TABLET PO PRN (18:50)
[2021-04-20] MEDS ORDERED: IBUPROFEN 600 MG TABLET PO PRN (06:15)
[2021-04-20] MEDS ORDERED: ONDANSETRON HCL 4 MG TABLET PO PRN (06:15)
[2021-04-20] MEDS ORDERED: BACITRACIN 28 GM OINTMENT TP PRN (06:15)
[2021-04-20] MEDS ORDERED: ACETAMINOPHEN 325 MG TABLET PO PRN (06:15)
[2021-04-20] MEDS ORDERED: CloNIDine HCL 0.1 MG TABLET PO PRN (06:15)
[2021-04-20] MEDS ORDERED: MAG HYDROX/AL HYDROX/SIMETH ES 30 ML SUSPENSION UDCUP PO PRN (06:15)
[2021-04-20] MEDS ORDERED: OMEPRAZOLE 20 MG CAPSULE PO PRN (06:15)
[2021-04-20] MEDS ORDERED: DOCUSATE SODIUM 100 MG CAPSULE PO PRN (06:15)
[2021-04-20] MEDS ORDERED: MAGNESIUM HYDROXIDE SUSPENSION 30 ML UDCUP PO PRN (06:15)
[2021-04-20] MEDS ORDERED: BENZOCAINE/MENTHOL LOZENGE PO PRN (06:15)
[2021-04-20] MEDS ORDERED: LOPERAMIDE HCL 2 MG CAPSULE PO PRN (06:15)
[2021-04-20] MEDS ORDERED: PETROLATUM,WHITE 28 GM JELLY TP PRN (06:15)
[2021-04-20] MEDS ORDERED: INFLUENZA VIRUS VACCINE QVS 2021-22 (6MO+)/PF 60 MCG/0.5 ML SYRINGE IM. ONE (06:45)
[2021-04-20 08:35] VITALS: BP 98/69
[2021-04-20 16:30] VITALS: BP 119/77
[2021-04-20] MEDS: RisperiDONE 3 MG TABLET PO SCH (21:11)
[2021-04-21 05:42] VITALS: BP 118/74
[2021-04-21 08:24] VITALS: BP 117/62
[2021-04-21] MEDS: RisperiDONE 3 MG TABLET PO SCH ×2 (08:38→20:26)
[2021-04-21] MEDS: BENZTROPINE MESYLATE 1 MG TABLET PO SCH ×2 (08:38→16:07)
[2021-04-21 16:12] VITALS: BP 112/67
[2021-04-22 00:14] VITALS: BP 110/69
[2021-04-22 08:10] VITALS: BP 141/68
[2021-04-22] MEDS: BENZTROPINE MESYLATE 1 MG TABLET PO SCH ×2 (10:09→16:37)
[2021-04-22] MEDS: RisperiDONE 3 MG TABLET PO SCH ×2 (10:10→20:23)
[2021-04-22 16:12] VITALS: BP 128/83
[2021-04-23 05:51] VITALS: BP 117/69
[2021-04-23 08:22] VITALS: BP 101/64
[2021-04-23] MEDS: BENZTROPINE MESYLATE 1 MG TABLET PO SCH ×2 (08:32→16:20)
[2021-04-23] MEDS: RisperiDONE 3 MG TABLET PO SCH ×2 (08:32→20:50)
[2021-04-23] MEDS: ALBUTEROL SULFATE HFA 90 MCG/PUFF 8 GM INHALER IH PRN (08:48)
[2021-04-23] MEDS ORDERED: PERMETHRIN 5% 60 GM CREAM TP ONE (09:30)
[2021-04-23 16:13] VITALS: BP 110/67
[2021-04-24 06:48] VITALS: BP 104/59
[2021-04-24 08:21] VITALS: BP 121/81
[2021-04-24] MEDS: BENZTROPINE MESYLATE 1 MG TABLET PO SCH ×2 (08:28→17:21)
[2021-04-24] MEDS: RisperiDONE 3 MG TABLET PO SCH ×2 (08:28→21:17)
[2021-04-24 13:11] LABS: GLUCOMETER DEV NAME(LOC) POC.BV
[2021-04-24] MEDS: ALBUTEROL SULFATE HFA 90 MCG/PUFF 8 GM INHALER IH PRN (14:42)
[2021-04-24 17:07] VITALS: BP 121/80
[2021-04-25 02:07] VITALS: BP 112/46
[2021-04-25] MEDS: RisperiDONE 3 MG TABLET PO SCH ×2 (09:10→20:31)
[2021-04-25] MEDS: BENZTROPINE MESYLATE 1 MG TABLET PO SCH ×2 (09:10→16:34)
[2021-04-25 12:46] VITALS: BP 130/64
[2021-04-25] MEDS: ALBUTEROL SULFATE HFA 90 MCG/PUFF 8 GM INHALER IH PRN (12:49)
[2021-04-25] MEDS: LORazepam 2 MG TABLET PO PRN (14:15)
[2021-04-25 16:47] VITALS: BP 106/67
[2021-04-26 00:54] VITALS: BP 116/70
[2021-04-26] MEDS: LORazepam 2 MG TABLET PO PRN (07:52)
[2021-04-26] MEDS: BENZTROPINE MESYLATE 1 MG TABLET PO SCH ×2 (08:37→16:28)
[2021-04-26] MEDS: RisperiDONE 3 MG TABLET PO SCH ×2 (08:37→20:13)
[2021-04-26 09:33] VITALS: BP 126/72
[2021-04-26 16:22] VITALS: BP 139/85
[2021-04-27 00:38] VITALS: BP 124/68
[2021-04-27] MEDS: BENZTROPINE MESYLATE 1 MG TABLET PO SCH ×2 (08:24→16:48)
[2021-04-27] MEDS: RisperiDONE 3 MG TABLET PO SCH ×2 (08:24→20:12)
[2021-04-27 09:23] VITALS: BP 110/66
[2021-04-27] MEDS: ALBUTEROL SULFATE HFA 90 MCG/PUFF 8 GM INHALER IH PRN (14:03)
[2021-04-27] MEDS: LORazepam 2 MG TABLET PO PRN (14:05)
[2021-04-27 16:26] VITALS: BP 141/84
[2021-04-28 00:47] VITALS: BP 127/78
[2021-04-28] MEDS: BENZTROPINE MESYLATE 1 MG TABLET PO SCH ×2 (08:27→16:33)
[2021-04-28] MEDS: LORazepam 2 MG TABLET PO PRN (08:28)
[2021-04-28] MEDS: RisperiDONE 3 MG TABLET PO SCH ×2 (08:28→20:09)
[2021-04-28 10:17] VITALS: BP 118/71
[2021-04-28 16:32] VITALS: BP 119/81
[2021-04-29 01:17] VITALS: BP 116/79
[2021-04-29] MEDS: BENZTROPINE MESYLATE 1 MG TABLET PO SCH ×2 (08:02→16:17)
[2021-04-29] MEDS: RisperiDONE 3 MG TABLET PO SCH ×2 (08:02→20:08)
[2021-04-29 08:45] VITALS: BP 109/57
[2021-04-29] MEDS: LORazepam 2 MG TABLET PO PRN ×2 (11:41→17:16)
[2021-04-29] MEDS: ALBUTEROL SULFATE HFA 90 MCG/PUFF 8 GM INHALER IH PRN (16:16)
[2021-04-29 16:38] VITALS: BP 127/66
[2021-04-30 00:55] VITALS: BP 118/73
[2021-04-30 08:31] VITALS: BP 103/62
[2021-04-30] MEDS: LORazepam 2 MG TABLET PO PRN ×2 (08:38→16:07)
[2021-04-30] MEDS: RisperiDONE 3 MG TABLET PO SCH ×2 (08:38→20:24)
[2021-04-30] MEDS: BENZTROPINE MESYLATE 1 MG TABLET PO SCH ×2 (08:38→16:06)
[2021-04-30] MEDS: ALBUTEROL SULFATE HFA 90 MCG/PUFF 8 GM INHALER IH PRN (09:11)
[2021-04-30 16:27] VITALS: BP 115/69
[2021-05-01] MEDS: ZOLPIDEM TARTRATE 10 MG TABLET PO PRN (00:05)
[2021-05-01 00:50] VITALS: BP 121/83
[2021-05-01 06:21] LABS: GLUCOMETER DEV NAME(LOC) POC.BV
[2021-05-01 08:16] VITALS: BP 111/71
[2021-05-01] MEDS: MULTIVITAMINS WITH MINERALS, THERAPEUTIC TABLET PO SCH (08:27)
[2021-05-01] MEDS: BENZTROPINE MESYLATE 1 MG TABLET PO SCH ×2 (08:27→16:34)
[2021-05-01] MEDS: LORazepam 2 MG TABLET PO PRN (08:27)
[2021-05-01] MEDS: RisperiDONE 3 MG TABLET PO SCH ×2 (08:27→20:32)
[2021-05-01] MEDS: ALBUTEROL SULFATE HFA 90 MCG/PUFF 8 GM INHALER IH PRN (14:02)
[2021-05-01 16:26] VITALS: BP 135/68
[2021-05-02 05:54] VITALS: BP 123/70
[2021-05-02 08:25] VITALS: BP 125/66
[2021-05-02] MEDS: RisperiDONE 3 MG TABLET PO SCH ×2 (08:59→20:28)
[2021-05-02] MEDS: LORazepam 2 MG TABLET PO PRN (08:59)
[2021-05-02] MEDS: BENZTROPINE MESYLATE 1 MG TABLET PO SCH ×2 (08:59→16:34)
[2021-05-02] MEDS: MULTIVITAMINS WITH MINERALS, THERAPEUTIC TABLET PO SCH (08:59)
[2021-05-02] MEDS: ALBUTEROL SULFATE HFA 90 MCG/PUFF 8 GM INHALER IH PRN ×2 (09:02→19:14)
[2021-05-02 16:24] VITALS: BP 124/70
[2021-05-03 00:22] VITALS: BP 106/61
[2021-05-03 08:23] VITALS: BP 100/60
[2021-05-03] MEDS: BENZTROPINE MESYLATE 1 MG TABLET PO SCH ×2 (09:24→16:32)
[2021-05-03] MEDS: MULTIVITAMINS WITH MINERALS, THERAPEUTIC TABLET PO SCH (09:24)
[2021-05-03] MEDS: RisperiDONE 3 MG TABLET PO SCH ×2 (09:24→20:51)
[2021-05-03] MEDS: LORazepam 2 MG TABLET PO PRN (16:09)
[2021-05-03 16:23] VITALS: BP 105/69
[2021-05-04 00:54] VITALS: BP 119/67
[2021-05-04] MEDS: MULTIVITAMINS WITH MINERALS, THERAPEUTIC TABLET PO SCH (08:54)
[2021-05-04] MEDS: BENZTROPINE MESYLATE 1 MG TABLET PO SCH ×2 (08:54→16:27)
[2021-05-04] MEDS: RisperiDONE 3 MG TABLET PO SCH ×2 (08:55→20:06)
[2021-05-04 09:58] VITALS: BP 121/77
[2021-05-04 16:13] VITALS: BP 113/63
[2021-05-04] MEDS: ALBUTEROL SULFATE HFA 90 MCG/PUFF 8 GM INHALER IH PRN (16:28)
[2021-05-05 01:45] VITALS: BP 107/65
[2021-05-05] MEDS: LORazepam 2 MG TABLET PO PRN (03:48)
[2021-05-05 08:29] VITALS: BP 112/69
[2021-05-05] MEDS: RisperiDONE 3 MG TABLET PO SCH (08:46)
[2021-05-05] MEDS: BENZTROPINE MESYLATE 1 MG TABLET PO SCH (08:46)
[2021-05-05] MEDS: MULTIVITAMINS WITH MINERALS, THERAPEUTIC TABLET PO SCH (08:46)
[2021-05-05] MEDS ORDERED: RISP3TAB63 PO (11:54)
[2021-05-05] MEDS ORDERED: BENZ1TAB10 PO (11:54)
== END 2021-05-05 13:15 | disposition home or self-care (01) | DRG 750 ==
LOC: EMS 16:19 → B2S 19:00 → EMS 21:17
PROVIDERS: ADMIT Psychiatry & Neurology Psychiatry; ATTEND Psychiatry & Neurology Psychiatry
DX: F20.0 Paranoid schizophrenia (principal); R45.851 Suicidal ideations; F15.10 Other stimulant abuse, uncomplicated; B86 Scabies; E87.6 Hypokalemia; F32.A Depression, unspecified; G47.00 Insomnia, unspecified; I10 Essential (primary) hypertension; Z20.822 Contact with and (suspected) exposure to COVID-19; J44.9 Chronic obstructive pulmonary disease, unspecified; K59.00 Constipation, unspecified; K21.9 Gastro-esophageal reflux disease without esophagitis; F17.210 Nicotine dependence, cigarettes, uncomplicated; Z79.899 Other long term (current) drug therapy
CPT/HCPCS: 80053; 85025; 99285; G0480; J3535

== ENCOUNTER 2021-05-12 01:51 | Inpatient (IN) | payer MEDICAID ==
[~2021-05-12 01:51] MED LIST changes: -FLUO-191 PO; -RISP3TAB35 PO; +RISP3TAB63 PO
[2021-05-12 04:41] LABS: GLUCOMETER DEV NAME(LOC) POC.BV
[2021-05-12] MEDS ORDERED: ZOLPIDEM TARTRATE 10 MG TABLET PO PRN (04:45)
[2021-05-12] MEDS ORDERED: HALOPERIDOL 5 MG TABLET PO PRN (04:45)
[2021-05-12] MEDS ORDERED: INFLUENZA VIRUS VACCINE QVS 2021-22 (6MO+)/PF 60 MCG/0.5 ML SYRINGE IM. ONE (05:30)
[2021-05-12] MEDS ORDERED: -PHARMACY VACCINE NOTE- MISC ONE (05:30)
[2021-05-12] MEDS ORDERED: NICOTINE 14 MG/24 HOUR PATCH TD PRN (07:00)
[2021-05-12] MEDS ORDERED: ACETAMINOPHEN 325 MG TABLET PO PRN (07:00)
[2021-05-12] MEDS ORDERED: IBUPROFEN 400 MG TABLET PO PRN (07:00)
[2021-05-12] MEDS ORDERED: PETROLATUM,WHITE 28 GM JELLY TP PRN (07:00)
[2021-05-12] MEDS ORDERED: ONDANSETRON HCL 4 MG TABLET PO PRN (07:00)
[2021-05-12] MEDS ORDERED: CloNIDine HCL 0.1 MG TABLET PO PRN (07:00)
[2021-05-12] MEDS ORDERED: LOPERAMIDE HCL 2 MG CAPSULE PO PRN (07:00)
[2021-05-12] MEDS ORDERED: DOCUSATE SODIUM 100 MG CAPSULE PO PRN (07:00)
[2021-05-12] MEDS ORDERED: MAG HYDROX/AL HYDROX/SIMETH ES 30 ML SUSPENSION UDCUP PO PRN (07:00)
[2021-05-12] MEDS ORDERED: MAGNESIUM HYDROXIDE SUSPENSION 30 ML UDCUP PO PRN (07:00)
[2021-05-12 08:12] VITALS: BP 129/81
[2021-05-12] MEDS: DIVALPROEX SODIUM 500 MG DR TABLET PO SCH ×2 (09:56→21:12)
[2021-05-12] MEDS: BENZTROPINE MESYLATE 1 MG TABLET PO SCH ×2 (09:57→21:11)
[2021-05-12] MEDS: RisperiDONE 3 MG TABLET PO SCH ×2 (09:57→21:12)
[2021-05-12] MEDS: GuaiFENesin/D-METHORPHAN [SUGAR-FREE] 200-20MG/10 ML SYRUP UDCUP PO PRN (10:32)
[2021-05-12] MEDS: ALBUTEROL SULFATE HFA 90 MCG/PUFF 8 GM INHALER IH PRN (11:23)
[2021-05-12 16:11] VITALS: BP 104/61
[2021-05-13 01:52] VITALS: BP 116/72
[2021-05-13 08:32] VITALS: BP 120/72
[2021-05-13] MEDS: DIVALPROEX SODIUM 500 MG DR TABLET PO SCH ×2 (09:19→20:38)
[2021-05-13] MEDS: BENZTROPINE MESYLATE 1 MG TABLET PO SCH ×2 (09:19→20:37)
[2021-05-13] MEDS: RisperiDONE 3 MG TABLET PO SCH ×2 (09:20→20:38)
[2021-05-13 16:10] VITALS: BP 104/60
[2021-05-14 03:21] VITALS: BP 106/64
[2021-05-14 08:07] VITALS: BP 132/70
[2021-05-14] MEDS: LORazepam 2 MG TABLET PO PRN (08:36)
[2021-05-14] MEDS: BENZTROPINE MESYLATE 1 MG TABLET PO SCH ×2 (08:36→20:22)
[2021-05-14] MEDS: RisperiDONE 3 MG TABLET PO SCH ×2 (08:36→20:23)
[2021-05-14] MEDS: DIVALPROEX SODIUM 500 MG DR TABLET PO SCH ×2 (08:36→20:23)
[2021-05-14] MEDS: ALBUTEROL SULFATE HFA 90 MCG/PUFF 8 GM INHALER IH PRN (08:39)
[2021-05-14 16:35] VITALS: BP 110/67
[2021-05-15 04:42] VITALS: BP 110/61
[2021-05-15] MEDS: DIVALPROEX SODIUM 500 MG DR TABLET PO SCH ×2 (08:09→20:22)
[2021-05-15] MEDS: LORazepam 2 MG TABLET PO PRN ×3 (08:09→20:22)
[2021-05-15] MEDS: GuaiFENesin/D-METHORPHAN [SUGAR-FREE] 200-20MG/10 ML SYRUP UDCUP PO PRN (08:09)
[2021-05-15] MEDS: RisperiDONE 3 MG TABLET PO SCH ×2 (08:09→20:22)
[2021-05-15] MEDS: BENZTROPINE MESYLATE 1 MG TABLET PO SCH ×2 (08:10→20:22)
[2021-05-15 10:24] VITALS: BP 100/61
[2021-05-15 16:15] VITALS: BP 125/69
[2021-05-16 04:04] VITALS: BP 123/78
[2021-05-16 08:08] VITALS: BP 124/76
[2021-05-16] MEDS: LORazepam 2 MG TABLET PO PRN (08:32)
[2021-05-16] MEDS: DIVALPROEX SODIUM 500 MG DR TABLET PO SCH ×2 (08:32→20:13)
[2021-05-16] MEDS: RisperiDONE 3 MG TABLET PO SCH ×2 (08:32→20:13)
[2021-05-16] MEDS: BENZTROPINE MESYLATE 1 MG TABLET PO SCH ×2 (08:32→20:13)
[2021-05-16] MEDS: GuaiFENesin/D-METHORPHAN [SUGAR-FREE] 200-20MG/10 ML SYRUP UDCUP PO PRN (15:14)
[2021-05-16 16:09] VITALS: BP 113/70
[2021-05-17 06:24] VITALS: BP 107/66
[2021-05-17] MEDS: RisperiDONE 3 MG TABLET PO SCH ×2 (08:41→20:44)
[2021-05-17] MEDS: LORazepam 2 MG TABLET PO PRN ×2 (08:41→20:45)
[2021-05-17] MEDS: BENZTROPINE MESYLATE 1 MG TABLET PO SCH ×2 (08:41→20:44)
[2021-05-17] MEDS: DIVALPROEX SODIUM 500 MG DR TABLET PO SCH ×2 (08:41→20:44)
[2021-05-17 09:25] VITALS: BP 124/72
[2021-05-17 16:10] VITALS: BP 120/99
[2021-05-18 00:48] VITALS: BP 113/74
[2021-05-18] MEDS: GuaiFENesin/D-METHORPHAN [SUGAR-FREE] 200-20MG/10 ML SYRUP UDCUP PO PRN ×2 (00:53→14:07)
[2021-05-18] MEDS: ALBUTEROL SULFATE HFA 90 MCG/PUFF 8 GM INHALER IH PRN (03:32)
[2021-05-18] MEDS: RisperiDONE 3 MG TABLET PO SCH ×2 (08:45→20:36)
[2021-05-18] MEDS: BENZTROPINE MESYLATE 1 MG TABLET PO SCH ×2 (08:45→20:37)
[2021-05-18] MEDS: MULTIVITAMINS, THERAPEUTIC TABLET PO SCH (08:45)
[2021-05-18] MEDS: DIVALPROEX SODIUM 500 MG DR TABLET PO SCH ×2 (08:45→20:36)
[2021-05-18] MEDS: LORazepam 2 MG TABLET PO PRN ×2 (08:45→20:40)
[2021-05-18 10:02] VITALS: BP 116/76
[2021-05-18 16:08] VITALS: BP 109/69
[2021-05-19 04:16] VITALS: BP 120/72
[2021-05-19 08:03] VITALS: BP 112/70
[2021-05-19] MEDS: DIVALPROEX SODIUM 500 MG DR TABLET PO SCH (08:24)
[2021-05-19] MEDS: MULTIVITAMINS, THERAPEUTIC TABLET PO SCH (08:24)
[2021-05-19] MEDS: RisperiDONE 3 MG TABLET PO SCH (08:24)
[2021-05-19] MEDS: BENZTROPINE MESYLATE 1 MG TABLET PO SCH (08:24)
[2021-05-19] MEDS: LORazepam 2 MG TABLET PO PRN (08:24)
[2021-05-19] MEDS ORDERED: DIVA-112 PO ×2 (14:33→15:04)
[2021-05-19] MEDS ORDERED: BENZ1TAB10 PO ×2 (14:34→15:04)
[2021-05-19] MEDS ORDERED: RISP3TAB44 PO (15:04)
[2021-05-19 16:19] VITALS: BP 110/77
== END 2021-05-19 16:16 | disposition home or self-care (01) | DRG 750 ==
LOC: B3A 04:45
PROVIDERS: ADMIT Psychiatry & Neurology Psychiatry; ATTEND Psychiatry & Neurology Psychiatry
DX: F25.1 Schizoaffective disorder, depressive type (principal); R45.851 Suicidal ideations; Z59.00 Homelessness unspecified; Z20.822 Contact with and (suspected) exposure to COVID-19; D64.9 Anemia, unspecified; J44.9 Chronic obstructive pulmonary disease, unspecified; F41.9 Anxiety disorder, unspecified; K21.9 Gastro-esophageal reflux disease without esophagitis
CPT/HCPCS: 80164; 87081; 90686; J3535

== ENCOUNTER 2021-05-25 20:54 | Inpatient (IN) | payer MEDICAID ==
[~2021-05-25] VITALS: Ht 175.3 cm; Wt 62.4 kg
[~2021-05-25 20:54] MED LIST changes: +DIVA-112 PO; +RISP3TAB44 PO
[2021-05-25] MEDS ORDERED: INFLUENZA VIRUS VACCINE QVS 2021-22 (6MO+)/PF 60 MCG/0.5 ML SYRINGE IM. ONE (21:30)
[2021-05-25] MEDS ORDERED: ZOLPIDEM TARTRATE 10 MG TABLET PO PRN (21:45)
[2021-05-25 21:51] LABS: GLUCOMETER DEV NAME(LOC) POC.BV
[2021-05-26 00:32] VITALS: BP 119/78
[2021-05-26 05:51] VITALS: BP 140/86
[2021-05-26] MEDS: LORazepam 2 MG TABLET PO PRN (08:26)
[2021-05-26 08:41] LABS: BASOPHILS % (AUTO) 0.2 % (0.0-2.0); EOSINOPHILS % (AUTO) 9.5 % (1.0-6.0); HEMOGLOBIN 13.7 g/dL (13.5-17.5); LYMPHOCYTES # (AUTO) 1.9 K/uL (1.0-4.8); LYMPHOCYTES % (AUTO) 22.7 % (22.0-44.0); MEAN CORPUSCULAR HEMOGLOBIN 29.8 pg (26.0-34.0); MEAN CORPUSCULAR HGB CONC 33.4 G/dL (31.0-37.0); MEAN CORPUSCULAR VOLUME 89 fL (80-100); MONOCYTES # (AUTO) 1.2 K/uL (0.1-1.0); MONOCYTES % (AUTO) 14.1 % (2.0-9.0); NEUTROPHILS # (AUTO) 4.4 K/uL (1.8-7.7); NEUTROPHILS % (AUTO) 53.5 % (40.0-70.0); PLATELET COUNT (AUTO) 204 K/uL (150-450); RED BLOOD CELL COUNT(AUTO) 4.59 MIL/uL (4.50-5.90); RED CELL DISTRIBUTION WIDTH 13.9 % (11.5-14.5)
[2021-05-26 08:47] VITALS: BP 138/76
[2021-05-26 08:52] LABS: HEMOGLOBIN A1C 5.6 % (3.8-5.6)
[2021-05-26 09:06] LABS: ALANINE AMINOTRANSFERASE 22 U/L (12-78); ALBUMIN 3.8 g/dL (3.4-5.0); ALKALINE PHOSPHATASE 89 U/L (46-116); ANION GAP 4 mmol/L (8-16); ASPARTATE AMINOTRANSFERASE 31 U/L (15-37); BILIRUBIN,TOTAL 0.5 mg/dL (0.1-1.0); CALCIUM, TOTAL 9.1 mg/dL (8.8-10.5); CARBON DIOXIDE 31 mmol/L (22-29); CHLORIDE 103 mmol/L (98-107); CHOL/HDL RATIO 2.2 (4.2-7.3); CHOLESTEROL 139 mg/dL (131-200); CREATININE 1.06 mg/dL (0.60-1.30); FREE T4 (FREE THYROXINE) 1.38 ng/dL (0.76-1.46); GLOMERULAR FILTR. RATE CALC > 60 mL/min (>60); GLUCOSE,RANDOM 108 mg/dL (70-110); HDL CHOLESTEROL 63 mg/dL (40-60); LDL CHOL (CALC.) 64 mg/dL (0-130); POTASSIUM 4.2 mmol/L (3.5-5.1); SODIUM SERUM 138 mmol/L (136-145); THYROID STIMULATING HORMONE 1.35 uIU/mL (0.36-3.74); TOTAL PROTEIN, SERUM 7.7 g/dL (6.4-8.2); TRIGLYCERIDES 58 mg/dL (15-150); UREA NITROGEN, BLOOD 29 mg/dL (7-18)
[2021-05-26] MEDS: DIVALPROEX SODIUM 500 MG DR TABLET PO SCH ×3 (09:30→20:23)
[2021-05-26] MEDS: BENZTROPINE MESYLATE 1 MG TABLET PO SCH ×3 (09:30→20:23)
[2021-05-26] MEDS: RisperiDONE 3 MG TABLET PO SCH ×3 (09:30→17:00)
[2021-05-26] MEDS ORDERED: CloNIDine HCL 0.1 MG TABLET PO PRN (15:45)
[2021-05-26] MEDS ORDERED: IBUPROFEN 400 MG TABLET PO PRN (15:45)
[2021-05-26] MEDS ORDERED: MAG HYDROX/AL HYDROX/SIMETH ES 30 ML SUSPENSION UDCUP PO PRN (15:45)
[2021-05-26] MEDS ORDERED: NICOTINE 14 MG/24 HOUR PATCH TD PRN (15:45)
[2021-05-26] MEDS ORDERED: MAGNESIUM HYDROXIDE SUSPENSION 30 ML UDCUP PO PRN (15:45)
[2021-05-26] MEDS ORDERED: DOCUSATE SODIUM 100 MG CAPSULE PO PRN (15:45)
[2021-05-26] MEDS ORDERED: ONDANSETRON HCL 4 MG TABLET PO PRN (15:45)
[2021-05-26] MEDS ORDERED: PETROLATUM,WHITE 28 GM JELLY TP PRN (15:45)
[2021-05-26] MEDS ORDERED: LOPERAMIDE HCL 2 MG CAPSULE PO PRN (15:45)
[2021-05-26] MEDS ORDERED: GuaiFENesin/D-METHORPHAN [SUGAR-FREE] 200-20MG/10 ML SYRUP UDCUP PO PRN (15:45)
[2021-05-26] MEDS ORDERED: ACETAMINOPHEN 325 MG TABLET PO PRN (15:45)
[2021-05-26] MEDS ORDERED: ALBUTEROL SULFATE HFA 90 MCG/PUFF 8 GM INHALER IH PRN (15:45)
[2021-05-27 08:47] VITALS: BP 108/63
[2021-05-27] MEDS: DIVALPROEX SODIUM 500 MG DR TABLET PO SCH ×2 (09:09→20:39)
[2021-05-27] MEDS: HALOPERIDOL 5 MG TABLET PO PRN (09:09)
[2021-05-27] MEDS: RisperiDONE 3 MG TABLET PO SCH ×2 (09:09→17:06)
[2021-05-27] MEDS: LORazepam 2 MG TABLET PO PRN (09:09)
[2021-05-27] MEDS: BENZTROPINE MESYLATE 1 MG TABLET PO SCH ×2 (09:09→20:39)
[2021-05-27 16:13] VITALS: BP 102/67
[2021-05-28 05:44] VITALS: BP 108/62
[2021-05-28 08:28] VITALS: BP 128/75
[2021-05-28] MEDS: BENZTROPINE MESYLATE 1 MG TABLET PO SCH ×2 (08:55→20:41)
[2021-05-28] MEDS: DIVALPROEX SODIUM 500 MG DR TABLET PO SCH ×2 (08:55→20:41)
[2021-05-28] MEDS: RisperiDONE 3 MG TABLET PO SCH ×2 (08:55→16:32)
[2021-05-28 16:31] VITALS: BP 126/69
[2021-05-28] MEDS: LORazepam 2 MG TABLET PO PRN (16:32)
[2021-05-29 05:26] VITALS: BP 124/66
[2021-05-29] MEDS: RisperiDONE 3 MG TABLET PO SCH ×2 (08:50→16:32)
[2021-05-29] MEDS: LORazepam 2 MG TABLET PO PRN ×2 (09:03→16:33)
[2021-05-29] MEDS: DIVALPROEX SODIUM 500 MG DR TABLET PO SCH ×2 (09:03→20:11)
[2021-05-29] MEDS: BENZTROPINE MESYLATE 1 MG TABLET PO SCH ×2 (09:03→20:11)
[2021-05-29 10:46] VITALS: BP 126/70
[2021-05-29 16:23] VITALS: BP 133/89
[2021-05-29] MEDS: HALOPERIDOL 5 MG TABLET PO PRN (16:33)
[2021-05-30 02:13] VITALS: BP 124/79
[2021-05-30 08:20] VITALS: BP 130/70
[2021-05-30] MEDS: DIVALPROEX SODIUM 500 MG DR TABLET PO SCH ×2 (08:39→20:05)
[2021-05-30] MEDS: BENZTROPINE MESYLATE 1 MG TABLET PO SCH ×2 (08:40→20:05)
[2021-05-30] MEDS: LORazepam 2 MG TABLET PO PRN (08:40)
[2021-05-30] MEDS: RisperiDONE 3 MG TABLET PO SCH ×2 (08:40→16:18)
[2021-05-30 16:30] VITALS: BP 114/71
[2021-05-31 01:22] VITALS: BP 105/75
[2021-05-31] MEDS: DIVALPROEX SODIUM 500 MG DR TABLET PO SCH ×2 (08:54→20:11)
[2021-05-31] MEDS: RisperiDONE 3 MG TABLET PO SCH ×2 (08:54→16:33)
[2021-05-31] MEDS: BENZTROPINE MESYLATE 1 MG TABLET PO SCH ×2 (08:54→20:11)
[2021-05-31] MEDS: LORazepam 2 MG TABLET PO PRN ×2 (08:55→16:33)
[2021-05-31 10:29] VITALS: BP 112/74
[2021-05-31 16:13] VITALS: BP 114/72
[2021-05-31] MEDS: HALOPERIDOL 5 MG TABLET PO PRN (16:33)
[2021-06-01 05:07] VITALS: BP 114/70
[2021-06-01 08:13] VITALS: BP 133/83
[2021-06-01] MEDS: DIVALPROEX SODIUM 500 MG DR TABLET PO SCH ×2 (08:38→20:52)
[2021-06-01] MEDS: THIAMINE 100 MG TABLET PO SCH (08:38)
[2021-06-01] MEDS: BENZTROPINE MESYLATE 1 MG TABLET PO SCH ×2 (08:38→20:52)
[2021-06-01] MEDS: RisperiDONE 3 MG TABLET PO SCH ×2 (08:38→16:27)
[2021-06-01] MEDS: LORazepam 2 MG TABLET PO PRN ×2 (08:39→16:27)
[2021-06-01] MEDS: HALOPERIDOL 5 MG TABLET PO PRN ×2 (08:39→16:27)
[2021-06-01 17:01] VITALS: BP 109/76
[2021-06-02 01:13] VITALS: BP 110/74
[2021-06-02 08:10] LABS: GLUCOMETER DEV NAME(LOC) POC.BV
[2021-06-02] MEDS: THIAMINE 100 MG TABLET PO SCH (08:44)
[2021-06-02] MEDS: RisperiDONE 3 MG TABLET PO SCH ×2 (08:44→17:06)
[2021-06-02] MEDS: BENZTROPINE MESYLATE 1 MG TABLET PO SCH ×2 (08:44→20:23)
[2021-06-02] MEDS: LORazepam 2 MG TABLET PO PRN (08:44)
[2021-06-02] MEDS: DIVALPROEX SODIUM 500 MG DR TABLET PO SCH ×2 (08:44→20:23)
[2021-06-02 09:08] VITALS: BP 124/70
[2021-06-02 16:23] VITALS: BP 140/77
[2021-06-03 04:46] VITALS: BP 132/72
[2021-06-03] MEDS: THIAMINE 100 MG TABLET PO SCH (09:18)
[2021-06-03] MEDS: BENZTROPINE MESYLATE 1 MG TABLET PO SCH ×2 (09:18→20:16)
[2021-06-03] MEDS: RisperiDONE 3 MG TABLET PO SCH ×2 (09:18→16:59)
[2021-06-03] MEDS: DIVALPROEX SODIUM 500 MG DR TABLET PO SCH ×2 (09:18→20:16)
[2021-06-03 11:51] VITALS: BP 140/72
[2021-06-03 16:17] VITALS: BP 138/72
[2021-06-03] MEDS: HALOPERIDOL 5 MG TABLET PO PRN (16:59)
[2021-06-03] MEDS: LORazepam 2 MG TABLET PO PRN (16:59)
[2021-06-04 04:20] VITALS: BP 132/69
[2021-06-04 08:25] VITALS: BP 102/62
[2021-06-04] MEDS: DIVALPROEX SODIUM 500 MG DR TABLET PO SCH ×2 (09:28→20:25)
[2021-06-04] MEDS: THIAMINE 100 MG TABLET PO SCH (09:28)
[2021-06-04] MEDS: RisperiDONE 3 MG TABLET PO SCH ×2 (09:28→16:37)
[2021-06-04] MEDS: BENZTROPINE MESYLATE 1 MG TABLET PO SCH ×2 (09:46→20:25)
[2021-06-04 16:14] VITALS: BP 112/72
[2021-06-05 06:20] VITALS: BP 118/80
[2021-06-05] MEDS: THIAMINE 100 MG TABLET PO SCH (09:04)
[2021-06-05] MEDS: RisperiDONE 3 MG TABLET PO SCH ×2 (09:04→16:25)
[2021-06-05] MEDS: DIVALPROEX SODIUM 500 MG DR TABLET PO SCH ×2 (09:04→20:21)
[2021-06-05] MEDS: BENZTROPINE MESYLATE 1 MG TABLET PO SCH ×2 (09:04→20:21)
[2021-06-05 15:06] VITALS: BP 121/68
[2021-06-05] MEDS: HALOPERIDOL 5 MG TABLET PO PRN (16:25)
[2021-06-05] MEDS: LORazepam 2 MG TABLET PO PRN (16:25)
[2021-06-05 17:10] VITALS: BP 105/64
[2021-06-06 00:58] VITALS: BP 104/62
[2021-06-06] MEDS: DIVALPROEX SODIUM 500 MG DR TABLET PO SCH ×2 (09:06→20:17)
[2021-06-06] MEDS: THIAMINE 100 MG TABLET PO SCH (09:06)
[2021-06-06] MEDS: BENZTROPINE MESYLATE 1 MG TABLET PO SCH ×2 (09:06→20:17)
[2021-06-06] MEDS: RisperiDONE 3 MG TABLET PO SCH ×2 (09:06→16:37)
[2021-06-06 09:58] VITALS: BP 126/67
[2021-06-06 16:29] VITALS: BP 105/74
[2021-06-07 01:31] VITALS: BP 107/72
[2021-06-07 08:16] VITALS: BP 107/72
[2021-06-07] MEDS: RisperiDONE 3 MG TABLET PO SCH (08:52)
[2021-06-07] MEDS: DIVALPROEX SODIUM 500 MG DR TABLET PO SCH (08:52)
[2021-06-07] MEDS: THIAMINE 100 MG TABLET PO SCH (08:52)
[2021-06-07] MEDS: BENZTROPINE MESYLATE 1 MG TABLET PO SCH (08:52)
[2021-06-07] MEDS ORDERED: BENZ1TAB10 PO (09:55)
[2021-06-07] MEDS ORDERED: RISP3TAB44 PO (09:55)
[2021-06-07] MEDS ORDERED: DIVA-112 PO (09:55)
== END 2021-06-07 12:54 | disposition home or self-care (01) | DRG 750 ==
LOC: B3A 21:45 → B2S 06-05 19:18
PROVIDERS: ADMIT Psychiatry & Neurology Psychiatry; ATTEND Psychiatry & Neurology Psychiatry
DX: F25.1 Schizoaffective disorder, depressive type (principal); R45.851 Suicidal ideations; Z59.00 Homelessness unspecified; D64.9 Anemia, unspecified; J44.9 Chronic obstructive pulmonary disease, unspecified; F10.10 Alcohol abuse, uncomplicated; Z20.822 Contact with and (suspected) exposure to COVID-19; K21.9 Gastro-esophageal reflux disease without esophagitis; Z79.899 Other long term (current) drug therapy
CPT/HCPCS: 80053; 80061; 83036; 84439; 84443; 85025; 87081; 90686; J3535

== ENCOUNTER 2021-06-12 18:32 | Inpatient (IN) | payer MEDICAID ==
[~2021-06-12] VITALS: Ht 175.3 cm; Wt 64.4 kg
[~2021-06-12 18:32] MED LIST changes: -BENZ1TAB10 PO; +BENZ1TAB96 PO; -RISP3TAB63 PO
[2021-06-12 19:21] LABS: GLUCOMETER DEV NAME(LOC) POC.BV
[2021-06-12] MEDS ORDERED: INFLUENZA VIRUS VACCINE QVS 2021-22 (6MO+)/PF 60 MCG/0.5 ML SYRINGE IM. ONE (20:00)
[2021-06-12] MEDS ORDERED: -PHARMACY VACCINE NOTE- MISC ONE (20:15)
[2021-06-13 03:04] VITALS: BP 114/68
[2021-06-13 07:16] LABS: HEMOGLOBIN 11.3 g/dL (13.5-17.5); MEAN CORPUSCULAR HEMOGLOBIN 30.6 pg (26.0-34.0); MEAN CORPUSCULAR HGB CONC 34.1 G/dL (31.0-37.0); MEAN CORPUSCULAR VOLUME 90 fL (80-100); PLATELET COUNT (AUTO) 198 K/uL (150-450); RED BLOOD CELL COUNT(AUTO) 3.68 MIL/uL (4.50-5.90); RED CELL DISTRIBUTION WIDTH 13.7 % (11.5-14.5)
[2021-06-13 07:30] LABS: HEMOGLOBIN A1C 5.5 % (3.8-5.6)
[2021-06-13 07:42] LABS: ALANINE AMINOTRANSFERASE 16 U/L (12-78); ALBUMIN 2.8 g/dL (3.4-5.0); ALKALINE PHOSPHATASE 61 U/L (46-116); ANION GAP 7 mmol/L (8-16); ASPARTATE AMINOTRANSFERASE 24 U/L (15-37); BILIRUBIN,TOTAL 0.2 mg/dL (0.1-1.0); CALCIUM, TOTAL 8.2 mg/dL (8.8-10.5); CARBON DIOXIDE 28 mmol/L (22-29); CHLORIDE 104 mmol/L (98-107); CHOLESTEROL 102 mg/dL (131-200); FREE T4 (FREE THYROXINE) 1.22 ng/dL (0.76-1.46); GLOMERULAR FILTR. RATE CALC > 60 mL/min (>60); GLUCOSE,RANDOM 106 mg/dL (70-110); HDL CHOLESTEROL 51 mg/dL (40-60); LDL CHOL (CALC.) 43 mg/dL (0-130); POTASSIUM 3.9 mmol/L (3.5-5.1); SODIUM SERUM 139 mmol/L (136-145); TOTAL PROTEIN, SERUM 6.6 g/dL (6.4-8.2); TRIGLYCERIDES 42 mg/dL (15-150); UREA NITROGEN, BLOOD 14 mg/dL (7-18)
[2021-06-13 09:26] VITALS: BP 110/66
[2021-06-13 09:40] LABS: BAND NEUTROPHILS % (MANUAL) 0 % (0-5)
[2021-06-13 09:43] LABS: BASOPHILS % (MANUAL) 2 % (0-2); EOSINOPHILS % (MANUAL) 2 % (1-6); LYMPHOCYTES % (MANUAL) 19 % (22-44); MONOCYTES % (MANUAL) 11 % (2-9); SEGMENTED NEUTROPHILS % 66 % (40-70)
[2021-06-13] MEDS: DIVALPROEX SODIUM 500 MG DR TABLET PO SCH ×2 (11:37→21:36)
[2021-06-13] MEDS: BENZTROPINE MESYLATE 1 MG TABLET PO SCH ×2 (11:37→21:36)
[2021-06-13] MEDS: LORazepam 2 MG TABLET PO PRN (11:49)
[2021-06-13] MEDS ORDERED: ALBUTEROL SULFATE HFA 90 MCG/PUFF 8 GM INHALER IH PRN (12:00)
[2021-06-13 16:18] VITALS: BP 103/70
[2021-06-13] MEDS: RisperiDONE 3 MG TABLET PO SCH (17:41)
[2021-06-13] MEDS: ZOLPIDEM TARTRATE 10 MG TABLET PO PRN (21:36)
[2021-06-14 00:17] VITALS: BP 103/68
[2021-06-14] MEDS: DIVALPROEX SODIUM 500 MG DR TABLET PO SCH ×2 (08:39→20:14)
[2021-06-14] MEDS: BENZTROPINE MESYLATE 1 MG TABLET PO SCH ×2 (08:40→20:14)
[2021-06-14] MEDS: RisperiDONE 3 MG TABLET PO SCH ×2 (08:40→16:05)
[2021-06-14 08:44] VITALS: BP 112/70
[2021-06-14 16:05] VITALS: BP 119/67
[2021-06-14] MEDS: LORazepam 2 MG TABLET PO PRN (16:05)
[2021-06-15 04:29] VITALS: BP 117/72
[2021-06-15 08:11] VITALS: BP 117/74
[2021-06-15] MEDS: RisperiDONE 3 MG TABLET PO SCH ×2 (08:27→16:55)
[2021-06-15] MEDS: DIVALPROEX SODIUM 500 MG DR TABLET PO SCH ×2 (08:27→21:14)
[2021-06-15] MEDS: BENZTROPINE MESYLATE 1 MG TABLET PO SCH ×2 (08:27→21:14)
[2021-06-15] MEDS: LORazepam 2 MG TABLET PO PRN ×2 (08:32→21:15)
[2021-06-15 16:15] VITALS: BP 128/62
[2021-06-16 04:29] VITALS: BP 108/66
[2021-06-16 08:09] VITALS: BP 140/90
[2021-06-16] MEDS: BENZTROPINE MESYLATE 1 MG TABLET PO SCH ×2 (08:34→20:18)
[2021-06-16] MEDS: LORazepam 2 MG TABLET PO PRN ×2 (08:34→20:18)
[2021-06-16] MEDS: RisperiDONE 3 MG TABLET PO SCH ×2 (08:34→16:13)
[2021-06-16] MEDS: DIVALPROEX SODIUM 500 MG DR TABLET PO SCH ×2 (08:34→20:18)
[2021-06-16 16:22] VITALS: BP 127/83
[2021-06-17] MEDS: ZOLPIDEM TARTRATE 10 MG TABLET PO PRN (00:52)
[2021-06-17] MEDS: LORazepam 2 MG TABLET PO PRN ×2 (00:52→08:31)
[2021-06-17 04:16] VITALS: BP 100/50
[2021-06-17] MEDS: RisperiDONE 3 MG TABLET PO SCH ×2 (08:31→16:31)
[2021-06-17] MEDS: BENZTROPINE MESYLATE 1 MG TABLET PO SCH ×2 (08:31→21:02)
[2021-06-17] MEDS: DIVALPROEX SODIUM 500 MG DR TABLET PO SCH ×2 (08:31→21:02)
[2021-06-17 16:15] VITALS: BP 130/91
[2021-06-18 00:27] VITALS: BP 129/83
[2021-06-18] MEDS: LORazepam 2 MG TABLET PO PRN (08:15)
[2021-06-18] MEDS: DIVALPROEX SODIUM 500 MG DR TABLET PO SCH ×2 (08:15→20:33)
[2021-06-18] MEDS: BENZTROPINE MESYLATE 1 MG TABLET PO SCH ×2 (08:15→20:33)
[2021-06-18] MEDS: RisperiDONE 3 MG TABLET PO SCH ×2 (08:15→16:12)
[2021-06-18 08:39] VITALS: BP 118/70
[2021-06-18 16:16] VITALS: BP 113/72
[2021-06-19 05:42] VITALS: BP 124/76
[2021-06-19 08:10] VITALS: BP 124/72
[2021-06-19] MEDS: RisperiDONE 3 MG TABLET PO SCH ×2 (08:53→17:06)
[2021-06-19] MEDS: BENZTROPINE MESYLATE 1 MG TABLET PO SCH ×2 (08:54→20:53)
[2021-06-19] MEDS: LORazepam 2 MG TABLET PO PRN (08:54)
[2021-06-19] MEDS: DIVALPROEX SODIUM 500 MG DR TABLET PO SCH ×2 (08:54→20:53)
[2021-06-19 10:41] LABS: GLUCOMETER DEV NAME(LOC) POC.BV
[2021-06-19 16:16] VITALS: BP 128/63
[2021-06-20 06:27] VITALS: BP 107/64
[2021-06-20] MEDS: DIVALPROEX SODIUM 500 MG DR TABLET PO SCH ×2 (08:46→20:32)
[2021-06-20] MEDS: BENZTROPINE MESYLATE 1 MG TABLET PO SCH ×2 (08:46→20:32)
[2021-06-20] MEDS: RisperiDONE 3 MG TABLET PO SCH ×2 (08:46→17:03)
[2021-06-20 08:58] VITALS: BP 110/66
[2021-06-20] MEDS: LORazepam 2 MG TABLET PO PRN (14:08)
[2021-06-20 16:13] VITALS: BP 108/62
[2021-06-21 06:03] VITALS: BP 93/55
[2021-06-21 08:48] VITALS: BP 112/66
[2021-06-21] MEDS: DIVALPROEX SODIUM 500 MG DR TABLET PO SCH ×2 (08:59→20:10)
[2021-06-21] MEDS: BENZTROPINE MESYLATE 1 MG TABLET PO SCH ×2 (08:59→20:10)
[2021-06-21] MEDS: RisperiDONE 3 MG TABLET PO SCH ×2 (09:00→16:03)
[2021-06-21 16:30] VITALS: BP 102/62
[2021-06-22 06:40] VITALS: BP 118/72
[2021-06-22] MEDS: RisperiDONE 3 MG TABLET PO SCH (08:06)
[2021-06-22] MEDS: BENZTROPINE MESYLATE 1 MG TABLET PO SCH (08:06)
[2021-06-22] MEDS: DIVALPROEX SODIUM 500 MG DR TABLET PO SCH (08:06)
[2021-06-22 08:15] VITALS: BP 122/70
[2021-06-22] MEDS ORDERED: DIVA-112 PO (09:24)
[2021-06-22] MEDS ORDERED: BENZ1TAB96 PO (09:24)
[2021-06-22] MEDS ORDERED: RISP3TAB44 PO (09:24)
== END 2021-06-22 13:15 | disposition home or self-care (01) | DRG 750 ==
LOC: B3A 18:56
PROVIDERS: ADMIT Psychiatry & Neurology Psychiatry; ATTEND Psychiatry & Neurology Psychiatry
DX: F25.1 Schizoaffective disorder, depressive type (principal); R45.851 Suicidal ideations; Z59.00 Homelessness unspecified; Z20.822 Contact with and (suspected) exposure to COVID-19; D64.9 Anemia, unspecified; F19.10 Other psychoactive substance abuse, uncomplicated; F10.10 Alcohol abuse, uncomplicated; J44.9 Chronic obstructive pulmonary disease, unspecified; K21.9 Gastro-esophageal reflux disease without esophagitis; Z79.899 Other long term (current) drug therapy; Z28.21 Immunization not carried out because of patient refusal; Z71.41 Alcohol abuse counseling and surveillance of alcoholic; Z71.51 Drug abuse counseling and surveillance of drug abuser
CPT/HCPCS: 80053; 80061; 83036; 84439; 84443; 85025; J3535

== ENCOUNTER 2021-06-12 21:10 | Emergency (ER) | payer MEDICAID ==
[~2021-06-12] VITALS: Ht 177.8 cm; Wt 79.0 kg
[~2021-06-12 21:10] MED LIST changes: +BENZ1TAB10 PO; -BENZ1TAB96 PO
[2021-06-13 00:03] LABS: BASOPHILS % (AUTO) 0.5 % (0.0-2.0); EOSINOPHILS % (AUTO) 2.9 % (1.0-6.0); LYMPHOCYTES % (AUTO) 21.5 % (22.0-44.0); MEAN CORPUSCULAR HEMOGLOBIN 30.5 pg (26.0-34.0); MEAN CORPUSCULAR HGB CONC 34.3 G/dL (31.0-37.0); MEAN CORPUSCULAR VOLUME 89 fL (80-100); MONOCYTES # (AUTO) 1.7 K/uL (0.1-1.0); MONOCYTES % (AUTO) 18.4 % (2.0-9.0); NEUTROPHILS # (AUTO) 5.2 K/uL (1.8-7.7); NEUTROPHILS % (AUTO) 56.7 % (40.0-70.0); PLATELET COUNT (AUTO) 183 K/uL (150-450); RED BLOOD CELL COUNT(AUTO) 3.59 MIL/uL (4.50-5.90); RED CELL DISTRIBUTION WIDTH 13.4 % (11.5-14.5)
[2021-06-13 00:12] LABS: AMPHET/METH SCREEN,URINE POSITIVE (NEGATIVE); BARBITURATE SCREEN, URINE NEGATIVE (NEGATIVE); BENZODIAZEPINES SCREEN,URINE NEGATIVE (NEGATIVE); CANNABINOID SCREEN,URINE NEGATIVE (NEGATIVE); COCAINE SCREEN,URINE NEGATIVE (NEGATIVE); METHADONE SCREEN, URINE NEGATIVE (NEGATIVE); OPIATE SCREEN,URINE NEGATIVE (NEGATIVE)
[2021-06-13 00:13] LABS: PHENCYCLIDINE SCREEN,URINE NEGATIVE (NEGATIVE)
[2021-06-13 00:13] LABS: ANION GAP 9 mmol/L (8-16); CALCIUM, TOTAL 8.2 mg/dL (8.8-10.5); CARBON DIOXIDE 27 mmol/L (22-29); CHLORIDE 102 mmol/L (98-107); CREATININE 0.85 mg/dL (0.60-1.30); GLOMERULAR FILTR. RATE CALC > 60 mL/min (>60); GLUCOSE,RANDOM 111 mg/dL (70-110); POTASSIUM 3.7 mmol/L (3.5-5.1); SODIUM SERUM 138 mmol/L (136-145); UREA NITROGEN, BLOOD 15 mg/dL (7-18)
[2021-06-13 00:18] LABS: ALANINE AMINOTRANSFERASE 19 U/L (12-78); ALBUMIN 2.9 g/dL (3.4-5.0); ALKALINE PHOSPHATASE 68 U/L (46-116); ASPARTATE AMINOTRANSFERASE 23 U/L (15-37); BILIRUBIN,TOTAL 0.2 mg/dL (0.1-1.0); TOTAL PROTEIN, SERUM 6.6 g/dL (6.4-8.2)
[2021-06-13] MEDS ORDERED: CEPHALEXIN MONOHYDRATE 500 MG CAPSULE PO ONE (01:00)
[2021-06-13 02:11] VITALS: BP 110/58
== END 2021-06-13 01:00 | disposition home or self-care (01) ==
LOC: EMS 21:33
DX: R60.0 Localized edema (principal); F32.9 Major depressive disorder, single episode, unspecified; F25.9 Schizoaffective disorder, unspecified; F15.10 Other stimulant abuse, uncomplicated; F17.210 Nicotine dependence, cigarettes, uncomplicated
CPT/HCPCS: 36415; 80053; 80307; 85025; 99283; G0480

== ENCOUNTER 2021-11-23 00:40 | Inpatient (IN) | payer MEDICAID ==
[~2021-11-23] VITALS: Ht 177.8 cm; Wt 58.1 kg
[~2021-11-23 00:40] MED LIST changes: -BENZ1TAB10 PO; +BENZ1TAB96 PO
[2021-11-23 01:18] LABS: COVID AG,FIA SOURCE NASAL SWAB
[2021-11-23 01:21] LABS: BASOPHILS % (AUTO) 0.4 % (0.0-2.0); EOSINOPHILS % (AUTO) 4.4 % (1.0-6.0); HEMOGLOBIN 11.5 g/dL (13.5-17.5); LYMPHOCYTES # (AUTO) 1.8 K/uL (1.0-4.8); MEAN CORPUSCULAR HEMOGLOBIN 30.3 pg (26.0-34.0); MEAN CORPUSCULAR HGB CONC 33.8 G/dL (31.0-37.0); MEAN CORPUSCULAR VOLUME 90 fL (80-100); MONOCYTES % (AUTO) 12.6 % (2.0-9.0); NEUTROPHILS # (AUTO) 4.4 K/uL (1.8-7.7); NEUTROPHILS % (AUTO) 58.6 % (40.0-70.0); PLATELET COUNT (AUTO) 202 K/uL (150-450); RED BLOOD CELL COUNT(AUTO) 3.79 MIL/uL (4.50-5.90); RED CELL DISTRIBUTION WIDTH 15.7 % (11.5-14.5)
[2021-11-23 01:28] LABS: ANION GAP 6 mmol/L (8-16); CALCIUM, TOTAL 8.8 mg/dL (8.8-10.5); CARBON DIOXIDE 29 mmol/L (22-29); CHLORIDE 105 mmol/L (98-107); GLUCOSE,RANDOM 72 mg/dL (70-110); POTASSIUM 3.5 mmol/L (3.5-5.1); SODIUM SERUM 140 mmol/L (136-145); UREA NITROGEN, BLOOD 16 mg/dL (7-18)
[2021-11-23 01:30] LABS: GLOMERULAR FILTR. RATE CALC > 60 mL/min (>60)
[2021-11-23 01:34] LABS: ALANINE AMINOTRANSFERASE 25 U/L (12-78); ALBUMIN 3.4 g/dL (3.4-5.0); ALKALINE PHOSPHATASE 101 U/L (46-116); ASPARTATE AMINOTRANSFERASE 23 U/L (15-37); BILIRUBIN,TOTAL 0.2 mg/dL (0.1-1.0); TOTAL PROTEIN, SERUM 6.7 g/dL (6.4-8.2)
[2021-11-23] MEDS ORDERED: ZOLPIDEM TARTRATE 10 MG TABLET PO PRN (01:45)
[2021-11-23] MEDS ORDERED: HALOPERIDOL 5 MG TABLET PO PRN (01:45)
[2021-11-23 04:18] VITALS: BP 121/79
[2021-11-23 04:31] VITALS: BP 121/79
[2021-11-23] MEDS ORDERED: OMEPRAZOLE 20 MG CAPSULE PO PRN (11:15)
[2021-11-23] MEDS ORDERED: MAGNESIUM HYDROXIDE SUSPENSION 30 ML UDCUP PO PRN (11:15)
[2021-11-23] MEDS ORDERED: LOPERAMIDE HCL 2 MG CAPSULE PO PRN (11:15)
[2021-11-23] MEDS ORDERED: IBUPROFEN 600 MG TABLET PO PRN (11:15)
[2021-11-23] MEDS ORDERED: BACITRACIN 28 GM OINTMENT TP PRN (11:15)
[2021-11-23] MEDS ORDERED: ACETAMINOPHEN 325 MG TABLET PO PRN (11:15)
[2021-11-23] MEDS ORDERED: CloNIDine HCL 0.1 MG TABLET PO PRN (11:15)
[2021-11-23] MEDS ORDERED: PETROLATUM,WHITE 28 GM JELLY TP PRN (11:15)
[2021-11-23] MEDS ORDERED: MAG HYDROX/AL HYDROX/SIMETH ES 30 ML SUSPENSION UDCUP PO PRN (11:15)
[2021-11-23] MEDS ORDERED: DOCUSATE SODIUM 100 MG CAPSULE PO PRN (11:15)
[2021-11-23] MEDS ORDERED: ONDANSETRON HCL 4 MG TABLET PO PRN (11:15)
[2021-11-23] MEDS ORDERED: ALBUTEROL SULFATE HFA 90 MCG/PUFF 8 GM INHALER IH PRN (11:15)
[2021-11-23] MEDS ORDERED: BENZOCAINE/MENTHOL LOZENGE PO PRN (11:15)
[2021-11-23 20:12] VITALS: BP 141/78
[2021-11-24] MEDS: DIVALPROEX SODIUM 500 MG DR TABLET PO SCH ×2 (10:21→16:19)
[2021-11-24] MEDS: RisperiDONE 3 MG TABLET PO SCH ×2 (10:21→20:38)
[2021-11-24 20:32] VITALS: BP 133/79
[2021-11-24] MEDS: BENZTROPINE MESYLATE 2 MG TABLET PO SCH (20:38)
[2021-11-25] MEDS: DIVALPROEX SODIUM 500 MG DR TABLET PO SCH ×2 (08:18→17:02)
[2021-11-25] MEDS: RisperiDONE 3 MG TABLET PO SCH ×2 (08:18→20:15)
[2021-11-25 08:29] VITALS: BP 111/68
[2021-11-25] MEDS ORDERED: NAPHAZOLINE/PHENIR 0.025-0.3% 15 ML OPHTHALMIC SOLUTION OU PRN (16:15)
[2021-11-25] MEDS: LORazepam 2 MG TABLET PO PRN (17:28)
[2021-11-25 20:15] VITALS: BP 111/68
[2021-11-25] MEDS: BENZTROPINE MESYLATE 2 MG TABLET PO SCH (20:15)
[2021-11-26] MEDS: DIVALPROEX SODIUM 500 MG DR TABLET PO SCH ×2 (08:10→17:05)
[2021-11-26] MEDS: RisperiDONE 3 MG TABLET PO SCH ×2 (08:10→20:20)
[2021-11-26 10:26] VITALS: BP 140/68
[2021-11-26] MEDS: LORazepam 2 MG TABLET PO PRN (17:05)
[2021-11-26 20:10] VITALS: BP 110/64
[2021-11-26] MEDS: BENZTROPINE MESYLATE 2 MG TABLET PO SCH (20:20)
[2021-11-27] MEDS: LORazepam 2 MG TABLET PO PRN (08:23)
[2021-11-27] MEDS: RisperiDONE 3 MG TABLET PO SCH ×2 (08:23→20:06)
[2021-11-27] MEDS: DIVALPROEX SODIUM 500 MG DR TABLET PO SCH ×2 (08:23→16:06)
[2021-11-27 08:45] VITALS: BP 124/74
[2021-11-27] MEDS: BENZTROPINE MESYLATE 2 MG TABLET PO SCH (20:06)
[2021-11-27 20:08] VITALS: BP 104/64
[2021-11-28] MEDS: RisperiDONE 3 MG TABLET PO SCH ×2 (08:26→20:18)
[2021-11-28] MEDS: DIVALPROEX SODIUM 500 MG DR TABLET PO SCH ×2 (08:26→16:43)
[2021-11-28 20:05] VITALS: BP 128/84
[2021-11-28] MEDS: BENZTROPINE MESYLATE 2 MG TABLET PO SCH (20:18)
[2021-11-29] MEDS: RisperiDONE 3 MG TABLET PO SCH ×2 (09:18→20:56)
[2021-11-29] MEDS: DIVALPROEX SODIUM 500 MG DR TABLET PO SCH ×2 (09:18→16:47)
[2021-11-29 10:05] VITALS: BP 101/72
[2021-11-29] MEDS: BENZTROPINE MESYLATE 2 MG TABLET PO SCH (20:56)
[2021-11-29 21:29] VITALS: BP 103/71
[2021-11-29] MEDS ORDERED: RISP3TAB63 PO (23:45)
[2021-11-29] MEDS ORDERED: DIVA-112 PO (23:45)
[2021-11-30 04:22] VITALS: BP 109/72
[2021-11-30] MEDS: DIVALPROEX SODIUM 500 MG DR TABLET PO SCH (09:55)
[2021-11-30] MEDS: RisperiDONE 3 MG TABLET PO SCH (09:55)
[2021-11-30 10:23] VITALS: BP 110/59
== END 2021-11-30 11:37 | disposition home or self-care (01) | DRG 750 ==
LOC: EMS 00:42 → B3A 03:03
PROVIDERS: ADMIT Psychiatry & Neurology Psychiatry; ATTEND Psychiatry & Neurology Psychiatry
DX: F25.9 Schizoaffective disorder, unspecified (principal); R45.851 Suicidal ideations; F29 Unspecified psychosis not due to a substance or known physiological condition; J44.9 Chronic obstructive pulmonary disease, unspecified; I10 Essential (primary) hypertension; F15.10 Other stimulant abuse, uncomplicated; F41.9 Anxiety disorder, unspecified; F31.9 Bipolar disorder, unspecified; K59.00 Constipation, unspecified; Z20.822 Contact with and (suspected) exposure to COVID-19; G47.00 Insomnia, unspecified; K21.9 Gastro-esophageal reflux disease without esophagitis; E87.6 Hypokalemia; Z79.899 Other long term (current) drug therapy; Z87.891 Personal history of nicotine dependence
CPT/HCPCS: 80053; 85025; 99285; G0480

== ENCOUNTER 2021-12-05 20:27 | Inpatient (IN) | payer MEDICAID ==
[~2021-12-05] VITALS: Ht 177.8 cm; Wt 69.1 kg
[~2021-12-05 20:27] MED LIST changes: -BENZ1TAB96 PO; +RISP3TAB63 PO
[2021-12-05 21:31] LABS: GLUCOMETER DEV NAME(LOC) POC.BV
[2021-12-05] MEDS ORDERED: PNEUMOCOCCAL VACCINE POLYVALENT 0.5 ML VIAL [PPSV23] IM. ONE (22:15)
[2021-12-06 04:02] VITALS: BP 119/70
[2021-12-06] MEDS ORDERED: BACITRACIN 28 GM OINTMENT TP PRN (05:30)
[2021-12-06] MEDS ORDERED: DOCUSATE SODIUM 100 MG CAPSULE PO PRN (05:30)
[2021-12-06] MEDS ORDERED: IBUPROFEN 600 MG TABLET PO PRN (05:30)
[2021-12-06] MEDS ORDERED: OMEPRAZOLE 20 MG CAPSULE PO PRN (05:30)
[2021-12-06] MEDS ORDERED: ACETAMINOPHEN 325 MG TABLET PO PRN (05:30)
[2021-12-06] MEDS ORDERED: CloNIDine HCL 0.1 MG TABLET PO PRN (05:30)
[2021-12-06] MEDS ORDERED: ONDANSETRON HCL 4 MG TABLET PO PRN (05:30)
[2021-12-06] MEDS ORDERED: BENZOCAINE/MENTHOL LOZENGE PO PRN (05:30)
[2021-12-06] MEDS ORDERED: MAG HYDROX/AL HYDROX/SIMETH ES 30 ML SUSPENSION UDCUP PO PRN (05:30)
[2021-12-06] MEDS ORDERED: MAGNESIUM HYDROXIDE SUSPENSION 30 ML UDCUP PO PRN (05:30)
[2021-12-06] MEDS ORDERED: PETROLATUM,WHITE 28 GM JELLY TP PRN (05:30)
[2021-12-06 07:10] LABS: BASOPHILS % (AUTO) 0.7 % (0.0-2.0); EOSINOPHILS % (AUTO) 6.5 % (1.0-6.0); HEMATOCRIT 34.2 % (41-53); HEMOGLOBIN 11.6 g/dL (13.5-17.5); LYMPHOCYTES # (AUTO) 1.6 K/uL (1.0-4.8); LYMPHOCYTES % (AUTO) 27.3 % (22.0-44.0); MEAN CORPUSCULAR HEMOGLOBIN 30.7 pg (26.0-34.0); MEAN CORPUSCULAR VOLUME 90 fL (80-100); MONOCYTES % (AUTO) 17.5 % (2.0-9.0); NEUTROPHILS # (AUTO) 2.9 K/uL (1.8-7.7); PLATELET COUNT (AUTO) 218 K/uL (150-450); RED CELL DISTRIBUTION WIDTH 15.2 % (11.5-14.5)
[2021-12-06 07:22] LABS: HEMOGLOBIN A1C 5.4 % (3.8-5.6)
[2021-12-06 07:34] LABS: ALANINE AMINOTRANSFERASE 16 U/L (12-78); ALKALINE PHOSPHATASE 82 U/L (46-116); ANION GAP 5 mmol/L (8-16); ASPARTATE AMINOTRANSFERASE 17 U/L (15-37); BILIRUBIN,TOTAL 0.1 mg/dL (0.1-1.0); CALCIUM, TOTAL 8.9 mg/dL (8.8-10.5); CARBON DIOXIDE 31 mmol/L (22-29); CHLORIDE 109 mmol/L (98-107); CHOL/HDL RATIO 2.3 (4.2-7.3); CHOLESTEROL 123 mg/dL (131-200); CREATININE 0.73 mg/dL (0.60-1.30); GLUCOSE,RANDOM 91 mg/dL (70-110); HDL CHOLESTEROL 54 mg/dL (40-60); LDL CHOL (CALC.) 56 mg/dL (0-130); POTASSIUM 3.9 mmol/L (3.5-5.1); SODIUM SERUM 145 mmol/L (136-145); TOTAL PROTEIN, SERUM 6.4 g/dL (6.4-8.2); TRIGLYCERIDES 64 mg/dL (15-150); UREA NITROGEN, BLOOD 16 mg/dL (7-18)
[2021-12-06 07:39] LABS: GLOMERULAR FILTR. RATE CALC > 60 mL/min (>60)
[2021-12-06 08:04] LABS: FREE T4 (FREE THYROXINE) 1.13 ng/dL (0.76-1.46); THYROID STIMULATING HORMONE 1.43 uIU/mL (0.36-3.74)
[2021-12-06 08:30] VITALS: BP 130/62
[2021-12-06] MEDS: LORazepam 2 MG TABLET PO PRN (17:51)
[2021-12-06] MEDS: HALOPERIDOL 5 MG TABLET PO PRN (17:51)
[2021-12-06 20:20] VITALS: BP 136/68
[2021-12-07] MEDS: HALOPERIDOL 5 MG TABLET PO PRN (09:04)
[2021-12-07] MEDS: DIVALPROEX SODIUM 500 MG DR TABLET PO SCH ×2 (09:04→20:25)
[2021-12-07] MEDS: RisperiDONE 3 MG TABLET PO SCH ×2 (09:04→17:01)
[2021-12-07] MEDS: LORazepam 2 MG TABLET PO PRN ×2 (09:04→17:01)
[2021-12-07 20:21] VITALS: BP 140/78
[2021-12-07] MEDS: ZOLPIDEM TARTRATE 10 MG TABLET PO PRN (20:25)
[2021-12-08] MEDS: LORazepam 2 MG TABLET PO PRN (08:24)
[2021-12-08] MEDS: RisperiDONE 3 MG TABLET PO SCH ×2 (08:24→16:02)
[2021-12-08] MEDS: DIVALPROEX SODIUM 500 MG DR TABLET PO SCH ×2 (08:24→20:31)
[2021-12-08] MEDS: HALOPERIDOL 5 MG TABLET PO PRN (08:24)
[2021-12-08 08:47] VITALS: BP 106/57
[2021-12-08 20:48] VITALS: BP 113/65
[2021-12-09] MEDS: LORazepam 2 MG TABLET PO PRN ×2 (08:16→16:06)
[2021-12-09] MEDS: DIVALPROEX SODIUM 500 MG DR TABLET PO SCH ×2 (08:16→20:44)
[2021-12-09] MEDS: HALOPERIDOL 5 MG TABLET PO PRN ×2 (08:16→16:06)
[2021-12-09] MEDS: RisperiDONE 3 MG TABLET PO SCH ×2 (08:16→16:06)
[2021-12-09 08:38] VITALS: BP 108/61
[2021-12-09 20:20] VITALS: BP 103/68
[2021-12-09] MEDS: ZOLPIDEM TARTRATE 10 MG TABLET PO PRN (20:44)
[2021-12-10] MEDS: HALOPERIDOL 5 MG TABLET PO PRN ×2 (08:19→17:17)
[2021-12-10] MEDS: DIVALPROEX SODIUM 500 MG DR TABLET PO SCH ×2 (08:19→20:52)
[2021-12-10] MEDS: RisperiDONE 3 MG TABLET PO SCH ×2 (08:19→17:17)
[2021-12-10] MEDS: LORazepam 2 MG TABLET PO PRN ×2 (08:20→17:17)
[2021-12-10 09:02] VITALS: BP 135/81
[2021-12-10 20:26] VITALS: BP 132/70
[2021-12-11] MEDS: RisperiDONE 3 MG TABLET PO SCH ×2 (08:40→17:21)
[2021-12-11] MEDS: DIVALPROEX SODIUM 500 MG DR TABLET PO SCH ×2 (08:40→20:30)
[2021-12-11 13:53] VITALS: BP 116/64
[2021-12-11] MEDS: HALOPERIDOL 5 MG TABLET PO PRN (17:21)
[2021-12-11] MEDS: LORazepam 2 MG TABLET PO PRN (17:22)
[2021-12-11 20:00] VITALS: BP 118/62
[2021-12-12] MEDS: DIVALPROEX SODIUM 500 MG DR TABLET PO SCH ×2 (08:56→20:19)
[2021-12-12] MEDS: RisperiDONE 3 MG TABLET PO SCH ×2 (08:56→16:12)
[2021-12-12] MEDS ORDERED: RISP3TAB63 PO (12:50)
[2021-12-12] MEDS ORDERED: DIVA-112 PO (12:50)
[2021-12-12 14:02] VITALS: BP 117/68
[2021-12-12 20:39] VITALS: BP 110/70
[2021-12-13 08:20] VITALS: BP 119/85
[2021-12-13] MEDS: RisperiDONE 3 MG TABLET PO SCH ×2 (08:58→17:33)
[2021-12-13] MEDS: DIVALPROEX SODIUM 500 MG DR TABLET PO SCH ×2 (08:58→20:27)
[2021-12-13] MEDS: LORazepam 2 MG TABLET PO PRN (13:19)
[2021-12-13 20:00] VITALS: BP 123/69
[2021-12-14 08:26] VITALS: BP 127/79
[2021-12-14] MEDS: RisperiDONE 3 MG TABLET PO SCH ×2 (08:35→16:37)
[2021-12-14] MEDS: DIVALPROEX SODIUM 500 MG DR TABLET PO SCH ×2 (08:35→20:45)
[2021-12-14] MEDS: LORazepam 2 MG TABLET PO PRN ×4 (08:35→20:45)
[2021-12-14] MEDS: HALOPERIDOL 5 MG TABLET PO PRN ×2 (16:38→20:45)
[2021-12-14 20:19] VITALS: BP 127/73
[2021-12-14] MEDS: ZOLPIDEM TARTRATE 10 MG TABLET PO PRN (20:46)
[2021-12-15] MEDS: LORazepam 2 MG TABLET PO PRN ×2 (08:46→17:04)
[2021-12-15] MEDS: DIVALPROEX SODIUM 500 MG DR TABLET PO SCH ×2 (08:46→20:25)
[2021-12-15] MEDS: HALOPERIDOL 5 MG TABLET PO PRN ×2 (08:46→17:04)
[2021-12-15] MEDS: RisperiDONE 3 MG TABLET PO SCH ×2 (08:46→17:03)
[2021-12-15] MEDS: ZOLPIDEM TARTRATE 10 MG TABLET PO PRN (20:25)
[2021-12-16] MEDS: RisperiDONE 3 MG TABLET PO SCH ×2 (08:27→16:19)
[2021-12-16] MEDS: DIVALPROEX SODIUM 500 MG DR TABLET PO SCH ×2 (08:27→20:07)
[2021-12-16 08:52] VITALS: BP 128/70
[2021-12-16] MEDS: LORazepam 2 MG TABLET PO PRN (13:50)
[2021-12-16] MEDS: ZOLPIDEM TARTRATE 10 MG TABLET PO PRN (20:07)
[2021-12-16 20:29] VITALS: BP 102/62
[2021-12-17] MEDS: LORazepam 2 MG TABLET PO PRN (08:37)
[2021-12-17] MEDS: DIVALPROEX SODIUM 500 MG DR TABLET PO SCH ×2 (08:37→20:58)
[2021-12-17] MEDS: RisperiDONE 3 MG TABLET PO SCH ×2 (08:37→17:00)
[2021-12-17 10:26] VITALS: BP 133/88
[2021-12-18 08:38] VITALS: BP 136/75
[2021-12-18] MEDS: DIVALPROEX SODIUM 500 MG DR TABLET PO SCH ×2 (09:02→20:38)
[2021-12-18] MEDS: RisperiDONE 3 MG TABLET PO SCH ×2 (09:02→16:08)
[2021-12-18] MEDS: HALOPERIDOL 5 MG TABLET PO PRN (16:08)
[2021-12-18] MEDS: LORazepam 2 MG TABLET PO PRN (16:08)
[2021-12-18 20:33] VITALS: BP 108/64
[2021-12-19] MEDS: DIVALPROEX SODIUM 500 MG DR TABLET PO SCH ×2 (08:42→20:33)
[2021-12-19] MEDS: RisperiDONE 3 MG TABLET PO SCH ×2 (08:42→16:58)
[2021-12-19 08:48] VITALS: BP 112/66
[2021-12-19 20:21] VITALS: BP 118/64
[2021-12-20] MEDS: DIVALPROEX SODIUM 500 MG DR TABLET PO SCH ×2 (08:42→20:16)
[2021-12-20] MEDS: RisperiDONE 3 MG TABLET PO SCH ×2 (08:42→16:39)
[2021-12-20 08:44] VITALS: BP 109/61
[2021-12-20] MEDS: LORazepam 2 MG TABLET PO PRN (13:10)
[2021-12-20 20:22] VITALS: BP 118/68
[2021-12-21 08:28] VITALS: BP 123/76
[2021-12-21] MEDS: LORazepam 2 MG TABLET PO PRN (08:36)
[2021-12-21] MEDS: DIVALPROEX SODIUM 500 MG DR TABLET PO SCH ×2 (08:36→21:00)
[2021-12-21] MEDS: RisperiDONE 3 MG TABLET PO SCH ×2 (08:36→16:57)
[2021-12-21 20:22] VITALS: BP 109/64
[2021-12-21 22:51] LABS: GLUCOMETER DEV NAME(LOC) POC.BV
[2021-12-22] MEDS: RisperiDONE 3 MG TABLET PO SCH ×2 (08:21→16:17)
[2021-12-22] MEDS: DIVALPROEX SODIUM 500 MG DR TABLET PO SCH ×2 (08:21→20:17)
[2021-12-22 08:57] VITALS: BP 126/79
[2021-12-22 20:25] VITALS: BP 113/67
[2021-12-23] MEDS: RisperiDONE 3 MG TABLET PO SCH ×2 (08:10→17:03)
[2021-12-23] MEDS: DIVALPROEX SODIUM 500 MG DR TABLET PO SCH ×2 (08:10→20:30)
[2021-12-23 08:55] VITALS: BP 113/72
[2021-12-23] MEDS: LORazepam 2 MG TABLET PO PRN (17:13)
[2021-12-23] MEDS: ALBUTEROL SULFATE HFA 90 MCG/PUFF 8 GM INHALER IH PRN (19:11)
[2021-12-23 20:19] VITALS: BP 108/62
[2021-12-24] MEDS: HALOPERIDOL 5 MG TABLET PO PRN ×2 (08:14→16:22)
[2021-12-24] MEDS: RisperiDONE 3 MG TABLET PO SCH ×2 (08:15→16:22)
[2021-12-24] MEDS: DIVALPROEX SODIUM 500 MG DR TABLET PO SCH ×2 (08:15→20:32)
[2021-12-24 09:04] VITALS: BP 152/87
[2021-12-24] MEDS: LORazepam 2 MG TABLET PO PRN (16:22)
[2021-12-24] MEDS: ALBUTEROL SULFATE HFA 90 MCG/PUFF 8 GM INHALER IH PRN (16:23)
[2021-12-24 20:00] VITALS: BP 116/73
[2021-12-25 08:08] VITALS: BP 122/70
[2021-12-25] MEDS: RisperiDONE 3 MG TABLET PO SCH ×2 (08:11→16:57)
[2021-12-25] MEDS: DIVALPROEX SODIUM 500 MG DR TABLET PO SCH ×2 (08:11→20:26)
[2021-12-25] MEDS: ALBUTEROL SULFATE HFA 90 MCG/PUFF 8 GM INHALER IH PRN (16:57)
[2021-12-26 00:33] VITALS: BP 111/88
[2021-12-26] MEDS: LORazepam 2 MG TABLET PO PRN (08:08)
[2021-12-26] MEDS: RisperiDONE 3 MG TABLET PO SCH ×2 (08:08→16:23)
[2021-12-26] MEDS: HALOPERIDOL 5 MG TABLET PO PRN (08:08)
[2021-12-26] MEDS: DIVALPROEX SODIUM 500 MG DR TABLET PO SCH ×2 (08:08→20:34)
[2021-12-26 08:56] VITALS: BP 121/74
[2021-12-26 20:41] VITALS: BP 105/65
[2021-12-27 08:27] VITALS: BP 101/68
[2021-12-27] MEDS: HALOPERIDOL 5 MG TABLET PO PRN (08:31)
[2021-12-27] MEDS: LORazepam 2 MG TABLET PO PRN (08:31)
[2021-12-27] MEDS: RisperiDONE 3 MG TABLET PO SCH ×2 (08:31→17:01)
[2021-12-27] MEDS: DIVALPROEX SODIUM 500 MG DR TABLET PO SCH ×2 (08:31→20:43)
[2021-12-27 20:34] VITALS: BP 105/67
[2021-12-28] MEDS: DIVALPROEX SODIUM 500 MG DR TABLET PO SCH ×2 (08:16→20:55)
[2021-12-28] MEDS: RisperiDONE 3 MG TABLET PO SCH ×2 (08:16→17:09)
[2021-12-28 08:20] VITALS: BP 110/74
[2021-12-28] MEDS ORDERED: TUBERCULIN, PURIFIED PROTEIN DERIVATIVE 5 TU/0.1 ML SYRINGE ID ONE (12:15)
[2021-12-28 20:19] VITALS: BP 111/67
[2021-12-29] MEDS: RisperiDONE 3 MG TABLET PO SCH ×2 (08:07→16:42)
[2021-12-29] MEDS: DIVALPROEX SODIUM 500 MG DR TABLET PO SCH ×2 (08:07→20:08)
[2021-12-29 08:13] VITALS: BP 133/79
[2021-12-29] MEDS: ALBUTEROL SULFATE HFA 90 MCG/PUFF 8 GM INHALER IH PRN (16:42)
[2021-12-29 20:17] VITALS: BP 110/64
[2021-12-30 08:15] VITALS: BP 132/75
[2021-12-30] MEDS: RisperiDONE 3 MG TABLET PO SCH ×2 (08:23→16:23)
[2021-12-30] MEDS: DIVALPROEX SODIUM 500 MG DR TABLET PO SCH ×2 (08:23→20:11)
[2021-12-30] MEDS: LORazepam 2 MG TABLET PO PRN (12:43)
[2021-12-30] MEDS: ALBUTEROL SULFATE HFA 90 MCG/PUFF 8 GM INHALER IH PRN (16:24)
[2021-12-30 20:10] VITALS: BP 128/78
[2021-12-31] MEDS: DIVALPROEX SODIUM 500 MG DR TABLET PO SCH ×2 (08:33→20:10)
[2021-12-31] MEDS: RisperiDONE 3 MG TABLET PO SCH ×2 (08:33→16:14)
[2021-12-31 09:05] VITALS: BP 108/65
[2021-12-31 09:22] LABS: GLUCOMETER DEV NAME(LOC) POC.BV
[2021-12-31 21:08] VITALS: BP 112/61
[2022-01-01] MEDS: DIVALPROEX SODIUM 500 MG DR TABLET PO SCH ×2 (08:18→20:21)
[2022-01-01] MEDS: RisperiDONE 3 MG TABLET PO SCH ×2 (08:18→16:14)
[2022-01-01 08:45] VITALS: BP 123/79
[2022-01-01] MEDS: ALBUTEROL SULFATE HFA 90 MCG/PUFF 8 GM INHALER IH PRN ×2 (09:49→18:09)
[2022-01-01] MEDS: LORazepam 2 MG TABLET PO PRN (16:14)
[2022-01-01 20:24] VITALS: BP 105/62
[2022-01-02] MEDS: RisperiDONE 3 MG TABLET PO SCH ×2 (08:19→16:29)
[2022-01-02] MEDS: DIVALPROEX SODIUM 500 MG DR TABLET PO SCH ×2 (08:19→20:12)
[2022-01-02 08:38] VITALS: BP 107/60
[2022-01-02] MEDS ORDERED: TUBERCULIN, PURIFIED PROTEIN DERIVATIVE 5 TU/0.1 ML SYRINGE ID ONE (08:45)
[2022-01-02] MEDS: ALBUTEROL SULFATE HFA 90 MCG/PUFF 8 GM INHALER IH PRN (12:44)
[2022-01-02] MEDS: LORazepam 2 MG TABLET PO PRN ×2 (12:44→16:50)
[2022-01-02 20:15] VITALS: BP 106/67
[2022-01-03 08:10] VITALS: BP 112/68
[2022-01-03] MEDS: RisperiDONE 3 MG TABLET PO SCH ×2 (08:15→17:03)
[2022-01-03] MEDS: DIVALPROEX SODIUM 500 MG DR TABLET PO SCH ×2 (08:15→20:29)
[2022-01-03] MEDS: LORazepam 2 MG TABLET PO PRN (17:03)
[2022-01-03] MEDS: ALBUTEROL SULFATE HFA 90 MCG/PUFF 8 GM INHALER IH PRN (17:04)
[2022-01-03 20:05] VITALS: BP 106/63
[2022-01-04] MEDS: DIVALPROEX SODIUM 500 MG DR TABLET PO SCH ×2 (08:07→20:29)
[2022-01-04] MEDS: RisperiDONE 3 MG TABLET PO SCH ×2 (08:07→16:16)
[2022-01-04 09:19] VITALS: BP 122/68
[2022-01-04] MEDS: LORazepam 2 MG TABLET PO PRN ×2 (12:46→16:48)
[2022-01-04 20:07] VITALS: BP 106/63
[2022-01-05] MEDS: RisperiDONE 3 MG TABLET PO SCH ×2 (08:10→17:21)
[2022-01-05] MEDS: DIVALPROEX SODIUM 500 MG DR TABLET PO SCH ×2 (08:10→22:10)
[2022-01-05 08:26] VITALS: BP 122/64
[2022-01-05] MEDS: LORazepam 2 MG TABLET PO PRN (12:04)
[2022-01-05 20:20] VITALS: BP 138/83
[2022-01-06 08:07] VITALS: BP 121/72
[2022-01-06] MEDS: DIVALPROEX SODIUM 500 MG DR TABLET PO SCH ×2 (08:16→20:06)
[2022-01-06] MEDS: RisperiDONE 3 MG TABLET PO SCH ×2 (08:16→17:12)
[2022-01-06] MEDS: LORazepam 2 MG TABLET PO PRN ×2 (08:16→13:46)
[2022-01-06] MEDS: HALOPERIDOL 5 MG TABLET PO PRN (13:46)
[2022-01-06] MEDS: ALBUTEROL SULFATE HFA 90 MCG/PUFF 8 GM INHALER IH PRN (13:47)
[2022-01-06 20:03] VITALS: BP 107/62
[2022-01-07 08:06] VITALS: BP 101/62
[2022-01-07] MEDS: DIVALPROEX SODIUM 500 MG DR TABLET PO SCH ×2 (08:44→20:17)
[2022-01-07] MEDS: RisperiDONE 3 MG TABLET PO SCH ×3 (08:44→16:05)
[2022-01-07] MEDS: HALOPERIDOL 5 MG TABLET PO PRN (13:47)
[2022-01-07] MEDS: LORazepam 2 MG TABLET PO PRN (13:47)
[2022-01-07] MEDS: ALBUTEROL SULFATE HFA 90 MCG/PUFF 8 GM INHALER IH PRN (16:06)
[2022-01-07 20:00] VITALS: BP 128/78
[2022-01-08] MEDS: DIVALPROEX SODIUM 500 MG DR TABLET PO SCH ×2 (08:09→20:07)
[2022-01-08] MEDS: RisperiDONE 3 MG TABLET PO SCH ×2 (08:09→16:18)
[2022-01-08 08:26] VITALS: BP 104/60
[2022-01-08] MEDS: LORazepam 2 MG TABLET PO PRN (10:03)
[2022-01-08 16:01] LABS: GLUCOMETER DEV NAME(LOC) POC.BV
[2022-01-08] MEDS: ALBUTEROL SULFATE HFA 90 MCG/PUFF 8 GM INHALER IH PRN (16:25)
[2022-01-08 20:04] VITALS: BP 103/64
[2022-01-09] MEDS: DIVALPROEX SODIUM 500 MG DR TABLET PO SCH ×2 (08:36→20:18)
[2022-01-09] MEDS: RisperiDONE 3 MG TABLET PO SCH ×2 (08:36→16:21)
[2022-01-09] MEDS: ALBUTEROL SULFATE HFA 90 MCG/PUFF 8 GM INHALER IH PRN ×2 (08:37→15:01)
[2022-01-09] MEDS: LORazepam 2 MG TABLET PO PRN ×2 (08:38→15:00)
[2022-01-09 09:35] VITALS: BP 103/58
[2022-01-09 20:05] VITALS: BP 110/62
[2022-01-10 08:02] VITALS: BP 112/58
[2022-01-10] MEDS: LORazepam 2 MG TABLET PO PRN ×2 (08:17→15:46)
[2022-01-10] MEDS: DIVALPROEX SODIUM 500 MG DR TABLET PO SCH ×2 (08:17→20:10)
[2022-01-10] MEDS: RisperiDONE 3 MG TABLET PO SCH ×2 (08:17→16:00)
[2022-01-10 20:30] VITALS: BP 112/58
[2022-01-11] MEDS: DIVALPROEX SODIUM 500 MG DR TABLET PO SCH ×2 (08:03→20:15)
[2022-01-11] MEDS: LORazepam 2 MG TABLET PO PRN ×2 (08:03→16:14)
[2022-01-11] MEDS: RisperiDONE 3 MG TABLET PO SCH ×2 (08:03→16:14)
[2022-01-11] MEDS: ALBUTEROL SULFATE HFA 90 MCG/PUFF 8 GM INHALER IH PRN (08:05)
[2022-01-11 08:06] VITALS: BP 122/70
[2022-01-11 22:31] VITALS: BP 125/63
[2022-01-12] MEDS: DIVALPROEX SODIUM 500 MG DR TABLET PO SCH ×2 (08:11→20:27)
[2022-01-12] MEDS: RisperiDONE 3 MG TABLET PO SCH ×2 (08:11→16:17)
[2022-01-12 08:52] VITALS: BP 85/58
[2022-01-12] MEDS: ALBUTEROL SULFATE HFA 90 MCG/PUFF 8 GM INHALER IH PRN (16:17)
[2022-01-12 19:35] VITALS: BP 120/66
[2022-01-12] MEDS: ZOLPIDEM TARTRATE 10 MG TABLET PO PRN (20:27)
[2022-01-13 08:01] VITALS: BP 104/60
[2022-01-13] MEDS: DIVALPROEX SODIUM 500 MG DR TABLET PO SCH ×2 (08:02→20:26)
[2022-01-13] MEDS: RisperiDONE 3 MG TABLET PO SCH ×2 (08:02→17:56)
[2022-01-13] MEDS: ALBUTEROL SULFATE HFA 90 MCG/PUFF 8 GM INHALER IH PRN (08:12)
[2022-01-13] MEDS: LORazepam 2 MG TABLET PO PRN (12:54)
[2022-01-13 20:10] VITALS: BP 98/66
[2022-01-14] MEDS: DIVALPROEX SODIUM 500 MG DR TABLET PO SCH ×2 (08:14→22:09)
[2022-01-14] MEDS: RisperiDONE 3 MG TABLET PO SCH ×2 (08:14→17:27)
[2022-01-14 08:19] VITALS: BP 100/63
[2022-01-14] MEDS: LORazepam 2 MG TABLET PO PRN (14:54)
[2022-01-15 00:11] VITALS: BP 105/70
[2022-01-15] MEDS: DIVALPROEX SODIUM 500 MG DR TABLET PO SCH ×2 (08:00→20:13)
[2022-01-15] MEDS: RisperiDONE 3 MG TABLET PO SCH ×2 (08:00→16:21)
[2022-01-15 08:24] VITALS: BP 100/60
[2022-01-15 20:30] VITALS: BP 108/64
[2022-01-16] MEDS: DIVALPROEX SODIUM 500 MG DR TABLET PO SCH ×2 (08:00→20:04)
[2022-01-16] MEDS: RisperiDONE 3 MG TABLET PO SCH ×2 (08:00→17:47)
[2022-01-16 08:01] VITALS: BP 106/66
[2022-01-16 20:02] VITALS: BP 109/62
[2022-01-17 08:04] VITALS: BP 102/62
[2022-01-17] MEDS: RisperiDONE 3 MG TABLET PO SCH ×2 (08:12→17:07)
[2022-01-17] MEDS: DIVALPROEX SODIUM 500 MG DR TABLET PO SCH ×2 (08:12→20:08)
[2022-01-17] MEDS: LORazepam 2 MG TABLET PO PRN (08:29)
[2022-01-17 08:46] LABS: GLUCOMETER DEV NAME(LOC) POC.BV
[2022-01-17 20:01] VITALS: BP 110/62
[2022-01-18] MEDS: RisperiDONE 3 MG TABLET PO SCH ×2 (08:10→16:08)
[2022-01-18] MEDS: DIVALPROEX SODIUM 500 MG DR TABLET PO SCH ×2 (08:10→20:06)
[2022-01-18] MEDS: LORazepam 2 MG TABLET PO PRN ×2 (08:10→16:08)
[2022-01-18 12:32] VITALS: BP 100/61
[2022-01-18 20:03] VITALS: BP 104/62
[2022-01-19] MEDS: DIVALPROEX SODIUM 500 MG DR TABLET PO SCH ×2 (08:09→20:42)
[2022-01-19] MEDS: RisperiDONE 3 MG TABLET PO SCH ×2 (08:09→16:28)
[2022-01-19] MEDS: LORazepam 2 MG TABLET PO PRN (08:10)
[2022-01-19 08:21] VITALS: BP 100/60
[2022-01-19 20:46] VITALS: BP 105/70
[2022-01-20] MEDS: DIVALPROEX SODIUM 500 MG DR TABLET PO SCH ×2 (08:04→20:39)
[2022-01-20] MEDS: LORazepam 2 MG TABLET PO PRN ×2 (08:04→16:27)
[2022-01-20] MEDS: RisperiDONE 3 MG TABLET PO SCH ×2 (08:04→16:27)
[2022-01-20 08:19] VITALS: BP 108/66
[2022-01-20] MEDS: ALBUTEROL SULFATE HFA 90 MCG/PUFF 8 GM INHALER IH PRN (16:28)
[2022-01-20 20:16] VITALS: BP 103/62
[2022-01-21 08:11] VITALS: BP 102/60
[2022-01-21] MEDS: DIVALPROEX SODIUM 500 MG DR TABLET PO SCH ×2 (08:18→20:16)
[2022-01-21] MEDS: RisperiDONE 3 MG TABLET PO SCH ×2 (08:18→16:22)
[2022-01-21] MEDS: LORazepam 2 MG TABLET PO PRN (16:23)
[2022-01-21 20:00] VITALS: BP 122/78
[2022-01-22 08:24] VITALS: BP 104/59
[2022-01-22] MEDS: RisperiDONE 3 MG TABLET PO SCH ×2 (09:01→17:04)
[2022-01-22] MEDS: DIVALPROEX SODIUM 500 MG DR TABLET PO SCH ×2 (09:01→20:09)
[2022-01-22] MEDS: LORazepam 2 MG TABLET PO PRN ×2 (12:06→17:04)
[2022-01-22 20:19] VITALS: BP 108/62
[2022-01-23 08:25] VITALS: BP 106/57
[2022-01-23] MEDS: DIVALPROEX SODIUM 500 MG DR TABLET PO SCH ×2 (08:45→20:33)
[2022-01-23] MEDS: RisperiDONE 3 MG TABLET PO SCH ×2 (08:45→16:21)
[2022-01-23] MEDS: LORazepam 2 MG TABLET PO PRN (14:42)
[2022-01-23] MEDS: ALBUTEROL SULFATE HFA 90 MCG/PUFF 8 GM INHALER IH PRN (16:30)
[2022-01-23 20:18] VITALS: BP 109/64
[2022-01-24 08:30] VITALS: BP 104/60
[2022-01-24] MEDS: RisperiDONE 3 MG TABLET PO SCH ×2 (09:06→16:24)
[2022-01-24] MEDS: DIVALPROEX SODIUM 500 MG DR TABLET PO SCH ×2 (09:06→20:24)
[2022-01-24] MEDS: ALBUTEROL SULFATE HFA 90 MCG/PUFF 8 GM INHALER IH PRN ×2 (09:08→16:24)
[2022-01-24] MEDS: LORazepam 2 MG TABLET PO PRN (16:24)
[2022-01-24 20:00] VITALS: BP 108/80
[2022-01-25 08:17] VITALS: BP 98/56
[2022-01-25] MEDS: RisperiDONE 3 MG TABLET PO SCH ×2 (08:51→16:08)
[2022-01-25] MEDS: DIVALPROEX SODIUM 500 MG DR TABLET PO SCH ×2 (08:51→20:07)
[2022-01-25 10:46] LABS: GLUCOMETER DEV NAME(LOC) POC.BV
[2022-01-25] MEDS: LORazepam 2 MG TABLET PO PRN ×2 (14:03→20:07)
[2022-01-25] MEDS: LOPERAMIDE HCL 2 MG CAPSULE PO PRN (15:26)
[2022-01-25 20:17] VITALS: BP 106/63
[2022-01-26] MEDS: LOPERAMIDE HCL 2 MG CAPSULE PO PRN (07:49)
[2022-01-26] MEDS: ALBUTEROL SULFATE HFA 90 MCG/PUFF 8 GM INHALER IH PRN ×2 (07:50→16:39)
[2022-01-26 08:09] VITALS: BP 109/62
[2022-01-26] MEDS: RisperiDONE 3 MG TABLET PO SCH ×2 (08:24→16:38)
[2022-01-26] MEDS: DIVALPROEX SODIUM 500 MG DR TABLET PO SCH ×2 (08:24→20:13)
[2022-01-26] MEDS: LORazepam 2 MG TABLET PO PRN ×2 (12:17→16:38)
[2022-01-26 20:24] VITALS: BP 110/64
[2022-01-27] MEDS: DIVALPROEX SODIUM 500 MG DR TABLET PO SCH ×2 (08:31→20:52)
[2022-01-27] MEDS: RisperiDONE 3 MG TABLET PO SCH ×2 (08:31→17:06)
[2022-01-27 20:45] VITALS: BP 112/64
[2022-01-28 08:16] VITALS: BP 102/65
[2022-01-28] MEDS: RisperiDONE 3 MG TABLET PO SCH ×2 (08:18→16:35)
[2022-01-28] MEDS: DIVALPROEX SODIUM 500 MG DR TABLET PO SCH ×2 (08:18→20:15)
[2022-01-28] MEDS: ALBUTEROL SULFATE HFA 90 MCG/PUFF 8 GM INHALER IH PRN (08:51)
[2022-01-28] MEDS: LORazepam 2 MG TABLET PO PRN (12:12)
[2022-01-28 22:09] VITALS: BP 110/69
[2022-01-29 08:08] VITALS: BP 126/77
[2022-01-29] MEDS: DIVALPROEX SODIUM 500 MG DR TABLET PO SCH ×2 (08:27→20:29)
[2022-01-29] MEDS: RisperiDONE 3 MG TABLET PO SCH ×2 (08:27→16:17)
[2022-01-29] MEDS: ALBUTEROL SULFATE HFA 90 MCG/PUFF 8 GM INHALER IH PRN ×2 (08:58→16:17)
[2022-01-29] MEDS: LORazepam 2 MG TABLET PO PRN (16:17)
[2022-01-29 20:21] VITALS: BP 118/66
[2022-01-30 08:19] VITALS: BP 133/78
[2022-01-30] MEDS: DIVALPROEX SODIUM 500 MG DR TABLET PO SCH ×2 (08:41→20:25)
[2022-01-30] MEDS: RisperiDONE 3 MG TABLET PO SCH ×2 (08:41→17:15)
[2022-01-30] MEDS: ALBUTEROL SULFATE HFA 90 MCG/PUFF 8 GM INHALER IH PRN (08:41)
[2022-01-30] MEDS: LORazepam 2 MG TABLET PO PRN (14:07)
[2022-01-30 20:14] VITALS: BP 108/62
[2022-01-31 08:24] VITALS: BP 100/60
[2022-01-31] MEDS: RisperiDONE 3 MG TABLET PO SCH ×2 (08:35→16:08)
[2022-01-31] MEDS: DIVALPROEX SODIUM 500 MG DR TABLET PO SCH ×2 (08:35→20:09)
[2022-01-31] MEDS: ALBUTEROL SULFATE HFA 90 MCG/PUFF 8 GM INHALER IH PRN ×2 (08:41→16:08)
[2022-01-31 14:12] VITALS: BP 110/72
[2022-01-31] MEDS: LORazepam 2 MG TABLET PO PRN (14:12)
[2022-01-31 20:17] VITALS: BP 104/64
[2022-02-01 08:27] VITALS: BP 119/78
[2022-02-01] MEDS: LORazepam 2 MG TABLET PO PRN ×2 (08:39→16:22)
[2022-02-01] MEDS: RisperiDONE 3 MG TABLET PO SCH ×2 (08:39→16:22)
[2022-02-01] MEDS: DIVALPROEX SODIUM 500 MG DR TABLET PO SCH ×2 (08:40→20:25)
[2022-02-01] MEDS: ALBUTEROL SULFATE HFA 90 MCG/PUFF 8 GM INHALER IH PRN (16:22)
[2022-02-01 20:32] VITALS: BP 106/62
[2022-02-02] MEDS: DIVALPROEX SODIUM 500 MG DR TABLET PO SCH ×2 (08:30→20:07)
[2022-02-02] MEDS: RisperiDONE 3 MG TABLET PO SCH ×2 (08:30→16:18)
[2022-02-02] MEDS: LORazepam 2 MG TABLET PO PRN ×2 (08:30→20:09)
[2022-02-02 09:06] VITALS: BP 116/70
[2022-02-02 16:18] VITALS: BP 110/70
[2022-02-02] MEDS: ALBUTEROL SULFATE HFA 90 MCG/PUFF 8 GM INHALER IH PRN (16:21)
[2022-02-02 20:40] VITALS: BP 109/69
[2022-02-03] MEDS: DIVALPROEX SODIUM 500 MG DR TABLET PO SCH ×2 (08:01→20:41)
[2022-02-03] MEDS: RisperiDONE 3 MG TABLET PO SCH ×2 (08:01→16:08)
[2022-02-03] MEDS: LORazepam 2 MG TABLET PO PRN ×2 (08:01→16:08)
[2022-02-03 09:05] VITALS: BP 107/62
[2022-02-03] MEDS: ALBUTEROL SULFATE HFA 90 MCG/PUFF 8 GM INHALER IH PRN (16:09)
[2022-02-03 20:19] VITALS: BP 110/62
[2022-02-04] MEDS: RisperiDONE 3 MG TABLET PO SCH ×2 (08:18→16:09)
[2022-02-04] MEDS: DIVALPROEX SODIUM 500 MG DR TABLET PO SCH ×2 (08:18→20:37)
[2022-02-04 08:38] VITALS: BP 102/59
[2022-02-04] MEDS: LORazepam 2 MG TABLET PO PRN (16:09)
[2022-02-04 20:36] VITALS: BP 110/74
[2022-02-05] MEDS: LORazepam 2 MG TABLET PO PRN (02:13)
[2022-02-05 04:48] VITALS: BP 101/70
[2022-02-05 08:32] VITALS: BP 115/65
[2022-02-05] MEDS: RisperiDONE 3 MG TABLET PO SCH (08:33)
[2022-02-05] MEDS: DIVALPROEX SODIUM 500 MG DR TABLET PO SCH (08:33)
[2022-02-05] MEDS ORDERED: DIVA-112 PO (23:29)
== END 2022-02-05 10:45 | DRG 750 ==
LOC: B3A 20:57
PROVIDERS: ADMIT Psychiatry & Neurology Psychiatry; ATTEND Psychiatry & Neurology Psychiatry
DX: F20.9 Schizophrenia, unspecified (principal); R45.851 Suicidal ideations; G47.00 Insomnia, unspecified; E87.6 Hypokalemia; F15.10 Other stimulant abuse, uncomplicated; F41.9 Anxiety disorder, unspecified; F32.A Depression, unspecified; I10 Essential (primary) hypertension; J44.9 Chronic obstructive pulmonary disease, unspecified; K21.9 Gastro-esophageal reflux disease without esophagitis; Z20.822 Contact with and (suspected) exposure to COVID-19; F17.210 Nicotine dependence, cigarettes, uncomplicated; K59.00 Constipation, unspecified; Z59.00 Homelessness unspecified; Z79.899 Other long term (current) drug therapy
CPT/HCPCS: 70450; 80053; 80061; 80164; 83036; 83540; 83550; 84439; 84443; 85025; 87081; J3535